=== PATIENT | female | born 1945 | race American Indian/Alaskan Native ===

== ENCOUNTER 2017-03-15 15:44 | Inpatient (IN) | payer MEDICARE ==
[2017-03-15 15:44] VITALS: BMI 36.6
[2017-03-15] MEDS ORDERED: Sodium Chloride 0.9% 500 ML IV ONE (16:07)
[2017-03-15] MEDS ORDERED: Sodium Chloride 0.9% 1,000 ML ONE (16:20)
[2017-03-15 16:29] LABS: BASO % 0.4 % (0.0-2.0); EOS % 0.2 % (0.0-4.0); HEMATOCRIT 43.7 % (34.0-47.0); LYMPH # 2.2 K/uL (1.0-4.3); LYMPH % 19.5 % (20.0-40.0); MEAN CELL VOLUME 89.2 fL (81.0-99.0); MEAN CORPUSCULAR HEMOGLOBIN 29.5 pg (27.0-31.0); MEAN CORPUSCULAR HGB CONC 33.1 g/dL (33.0-37.0); MONO # 0.6 K/uL (0.0-0.8); MONO % 5.4 % (0.0-10.0); NRBC % 0.1 % (0.0-2.0); RED CELL DISTRIBUTION WIDTH 14.1 % (11.5-14.5); WHITE BLOOD COUNT 11.5 K/uL (4.8-10.8)
[2017-03-15 16:37] LABS: CHLORIDE 100 mmol/L (98-107); POTASSIUM 3.7 mmol/L (3.6-5.2); SODIUM 137 mmol/L (132-148)
[2017-03-15 16:39] LABS: ALB/GLOB RATIO 1.5 (1.0-2.1); AST/SGOT 19 U/L (14-36); BILIRUBIN,TOTAL 0.5 mg/dL (0.2-1.3); CARBON DIOXIDE 25 mmol/L (22-30); GFR AFRICAN-AMERICAN 49; TOTAL PROTEIN 8.1 g/dL (6.3-8.3)
[2017-03-15 16:40] LABS: ALKALINE PHOSPHATASE 87 U/L (38-126); ALT/SGPT 32 U/L (9-52); BLOOD UREA NITROGEN 22 mg/dL (7-17); CALCIUM 9.8 mg/dl (8.6-10.4); GLUCOSE,RANDOM 114 mg/dL (65-105); INR 0.9
--- NOTE | 2017-03-15 16:44 | RAD ---
PROCEDURE: CHEST RADIOGRAPH, 1 VIEW HISTORY: abd pain COMPARISON: None available. FINDINGS: LUNGS: There is silhouetting of the left hemidiaphragm. There is increased retrocardiac opacity. This may reflect consolidation or left pleural effusion. There is no consolidation appreciated elsewhere. There is no evidence of right pleural effusion. There is no pneumothorax. PLEURA: As above CARDIOVASCULAR: Normal. OSSEOUS STRUCTURES: No significant abnormalities. VISUALIZED UPPER ABDOMEN: Normal. OTHER FINDINGS: None. IMPRESSION: Retrocardiac opacity and silhouetting of left hemidiaphragm. Possible left lower lobe infiltrate versus left pleural effusion.
[2017-03-15 16:50] LABS: VENOUS BLOOD GAS BASE EXCESS 2.8 mmol/L (0.0-2.0); VENOUS BLOOD GAS PCO2 35 mmHg (40-60); VENOUS BLOOD PH 7.48 (7.32-7.43)
--- NOTE | 2017-03-15 17:14 | C.PDOC ---
History Of Present Illness 71 year old patient, with a past medical history of Arthritis (HANDS; RIGHT ARM) , Colonic Polyps, Diverticulitis, HTN, and Pancreatitis, presents to the emergency department complaining of periumbilical pain and vomiting since this morning. Patient notes 3 episodes of vomiting. Patient denies fever, diarrhea, or shortness of breath. Time Seen by Provider: 03/15/17 16:04 Chief Complaint (Nursing): Abdominal Pain History Per: Patient History/Exam Limitations: no limitations Onset/Duration Of Symptoms: Hrs (this morning) Current Symptoms Are (Timing): Still Present Context: Other Severity: Mild Pain Scale Rating Of: 3 Location Of Pain/Discomfort: Periumbilical Radiation Of Pain To:: None Quality Of Discomfort: "Pain" Associated Symptoms: Vomiting Exacerbating Factors: None Alleviating Factors: None Last Bowel Movement: Today Recent travel outside of the [place]: No Past Medical History Reviewed: Historical Data, Nursing Documentation, Vital Signs Vital Signs: Last Vital Signs Temp 98.7 F 03/15/17 20:56 Pulse 88 03/15/17 20:56 Resp 20 03/15/17 20:56 BP 149/78 03/15/17 20:56 Pulse Ox 95 03/15/17 20:56 - Medical History PMH: Arthritis (HANDS; RIGHT ARM), Colonic Polyps, Diverticulitis, HTN, Pancreatitis Surgical History: Endoscopy - [facility] Procedures COLONOSCOPY (01/19/14) Family History: States: Unknown Family Hx - Social History Hx Alcohol Use: No Hx Substance Use: No - Immunization History Hx Tetanus Toxoid Vaccination: No Hx Influenza Vaccination: No Hx Pneumococcal Vaccination: Yes Review Of Systems Except As Marked, All Systems Reviewed And Found Negative. Constitutional: Negative for: Fever Respiratory: Negative for: Shortness of Breath Gastrointestinal: Positive for: Vomiting, Abdominal Pain (periumbilical). Negative for: Diarrhea Physical Exam - Physical Exam Appears: Non-toxic, No Acute Distress Skin: Warm, Dry Head: Atraumatic, Normacephalic Oral Mucosa: Moist Neck: Normal ROM, Supple Chest: Symmetrical Cardiovascular: Rhythm Regular Respiratory: Normal Breath Sounds, No Rales, No Rhonchi, No Wheezing Gastrointestinal/Abdominal: Soft, Tenderness (periumbilical), No Guarding, No Rebound, Other ((+)obese (-)McBurney's sign (-)Bryant's sign) Back: Normal Inspection, No CVA Tenderness Extremity: Normal ROM Neurological/Psych: Oriented x3 Gait: Steady ED Course And Treatment - Laboratory Results Result Diagrams: 03/15/17 16:21 03/15/17 16:21 Lab Interpretation: Abnormal (mild leukocytosis) ECG: Interpreted By Me, Viewed By Me ECG Rhythm: Sinus Rhythm, L BBB ECG Interpretation: Normal Interpretation Of ECG: No prior EKG to compare Rate From EC (bpm) O2 Sat by Pulse Oximetry: 98 (room air) Pulse Ox Interpretation: Normal - Radiology CXR: Interpreted by Me CXR Interpretation: Yes: No Acute Disease Progress Note: Plan: Abdomen/Pelvis CT, VBG, Labs, Chest x-ray, Pepcid, Zofran, IV fluids, Toradol. pt vomited in ED 2-3 times, Surgical Donald d/w Pt- declined NGT for now Reevaluation Time: 20:26 Reassessment Condition: Improved - Physician Consult Information Outcome Of Conversation: 1830: d/w Dr. Garay- PMD- ok to admit. 1700: d/w Dr. Tay- Surgical Consult- NGT PRN Medical Decision Making Medical Decision Making: SBO, h/o same. ? internal hernia vs adhesions. Pt and Surgery defer NGT for now. Disposition Doctor Will See Patient In The: Hospital Counseled Patient/Family Regarding: Studies Performed, Diagnosis - Disposition Disposition: HOSPITALIZED Disposition Time: 20:28 Condition: GOOD - Clinical Impression Clinical Impression: Small bowel obstruction - Scribe Statement The provider has reviewed the documentation as recorded by the Zach Paula Provider Attestation: All medical record entries made by the Zach were at my direction and personally dictated by me. I have reviewed the chart and agree that the record accurately reflects my personal performance of the history, physical exam, medical decision making, and the department course for this patient. I have also personally directed, reviewed, and agree with the discharge instructions and disposition.
[2017-03-15] MEDS ORDERED: Iodixanol 320 MG/ML 100 ML BOTTLE IV ONE (17:19)
--- NOTE | 2017-03-15 18:52 | CT ---
PROCEDURE: CT Abdomen and Pelvis with contrast HISTORY: epigastric, h/o diverticulosis COMPARISON: None available. TECHNIQUE: Contrast dose: 100 cc Visipaque 320 Radiation dose: Total exam DLP = 1126.34 mGy-cm. This CT exam was performed using one or more of the following dose reduction techniques: Automated exposure control, adjustment of the mA and/or kV according to patient size, and/or use of iterative reconstruction technique. FINDINGS: LOWER THORAX: Bibasilar atelectasis. No visible pleural effusion or pneumothorax. Partially imaged cardiomegaly. Moderate hiatal hernia. LIVER: Too small to characterize 7 mm left hepatic lobe hypodensity; statistically likely cyst or hemangioma. GALLBLADDER AND BILE DUCTS: Unremarkable. PANCREAS: Unremarkable. SPLEEN: 6 mm probable splenule. Otherwise unremarkable. ADRENALS: Unremarkable. KIDNEYS AND URETERS: Atrophic right kidney. 18 mm left low-density renal lesion compatible with a cyst measuring approximately 14 HU. No hydronephrosis. No obstructing renal calculi. VASCULATURE: No aortic aneurysm. BOWEL: Stomach is nondistended. Lack of oral contrast limits evaluation for bowel pathology. Fluid filled and dilated loops of small bowel involving portions of the jejunum and proximal ileum. Diverticulosis without CT evidence of acute diverticulitis. APPENDIX: The appendix appears within normal limits of caliber. No secondary signs of acute appendicitis. PERITONEUM: All pelvic free fluid. No definite free air. LYMPH NODES: No bulky adenopathy identified. BLADDER: Unremarkable. REPRODUCTIVE: Unremarkable. BONES: Degenerative changes. OTHER FINDINGS: None. IMPRESSION: Fluid filled and dilated loops of small bowel involving portions of the jejunum and proximal ileum. Appearance worrisome for closed loop obstruction or internal hernia until proven otherwise. Additional findings as above. Findings discussed with Dr. Woodson on 03/15/17 at 6:49 p.m..
[2017-03-15 18:56] LABS: RBC URINE 4 /hpf (0-3); URINE BACTERIA RARE (<OCC); URINE BILIRUBIN NEGATIVE (NEGATIVE); URINE BLOOD NEGATIVE (NEGATIVE); URINE GLUCOSE (UA) NORMAL (Normal); URINE KETONE NEGATIVE (NEGATIVE); URINE LEUKOCYTE ESTERASE NEG Leu/uL (Negative); URINE PROTEIN 2+ mg/dL (NEGATIVE); URINE UROBILINOGEN NORMAL mg/dL (0.2-1.0); WBC URINE 4 /hpf (0-5)
[2017-03-15 18:58] LABS: URINE COLOR YELLOW (YELLOW)
--- NOTE | 2017-03-15 20:17 | CP.PCM.CON ---
History of Present Illness - History of Present Illness History of Present Illness: GENERAL SURGERY CONSULT NOTE FOR DR. AREVALO 71yo F with PMHx of HTN, CKD, CHF, SBO and multiple abdominal surgeries who presents to the ED with abdominal pain and vomiting. The pain began earlier today around noon and was 10/10. Her pain is located in the epigastric/ periumbilical area. She vomited about 3-4 times, non bloody. She had a small BM earlier today. She last passed flatus yesterday. She denies SOB or CP. Of note, she was treated for SBO a few months ago at [facility] conservatively. Currently, patient states that her pain is completely gone and she has no symptoms. PMHx: CHF, CKD, HTN, DM (controlled without medication), arthritis, colonic polyps, takotsubo syndrome, SBO Surgeries: hysterectomy, D&C, 2 ectopic pregnancies Allergies: Vasotec, HCTZ (pancreatitis) Social history: denies tobacco, etoh, illicit drug use Review of Systems - Review of Systems All systems: reviewed and no additional remarkable complaints except (as per HPI ) Past Patient History - Past Medical History & Family History Past Medical History?: Yes - Past Social History Smoking Status: Never Smoked - CARDIAC Hx Hypertension: Yes - PULMONARY Hx Respiratory Disorders: No - NEUROLOGICAL Hx Neurological Disorder: No - HEENT Hx HEENT Problems: No - RENAL Hx Chronic Kidney Disease: No - ENDOCRINE/METABOLIC Hx Endocrine Disorders: No Other/Comment: Borderline diabetes - HEMATOLOGICAL/ONCOLOGICAL Hx Blood Disorders: No - INTEGUMENTARY Hx Dermatological Problems: No - MUSCULOSKELETAL/RHEUMATOLOGICAL Hx Arthritis: Yes (HANDS; RIGHT ARM) - GASTROINTESTINAL Hx Diverticulitis: Yes Hx Pancreatitis: Yes - GENITOURINARY/GYNECOLOGICAL Hx Genitourinary Disorders: No - PSYCHIATRIC Hx Substance Use: No - SURGICAL HISTORY Hx Surgeries: Yes Hx Hysterectomy: Yes (GARRETT) - ANESTHESIA Hx Anesthesia: Yes Hx Anesthesia Reactions: No Hx Malignant Hyperthermia: No Meds Allergies/Adverse Reactions: Allergies Allergy/AdvReac Type Severity Reaction Status Date / Time enalaprilat [From Vasotec] Allergy RASH Verified 03/15/17 15:55 hydrochlorothiazide Allergy RASH Verified 03/15/17 15:55 Physical Exam - Constitutional Appears: Well, Non-toxic, No Acute Distress - Head Exam Head Exam: ATRAUMATIC, NORMAL INSPECTION - Eye Exam Eye Exam: EOMI, Normal appearance - Respiratory Exam Respiratory Exam: NORMAL BREATHING PATTERN. absent: Respiratory Distress - Cardiovascular Exam Cardiovascular Exam: +S1, +S2 - GI/Abdominal Exam GI & Abdominal Exam: Soft. absent: Distended, Firm, Guarding, Rebound, Rigid, Tenderness (non tender on deep palpation) Additional comments: Lower midline scar, well healed - Extremities Exam Additional comments: +1 pitting edema bilateral LE - Neurological Exam Neurological exam: Alert, CN II-XII Intact, Oriented x3 - Psychiatric Exam Psychiatric exam: Normal Affect, Normal Mood - Skin Skin Exam: Dry, Normal Color, Warm Results - Vital Signs Recent Vital Signs: Last Vital Signs Temp 99.2 F 03/15/17 18:06 Pulse 83 03/15/17 18:06 Resp 20 03/15/17 18:06 BP 132/84 03/15/17 18:06 Pulse Ox 98 03/15/17 19:03 - Labs Result Diagrams: 03/15/17 16:21 03/15/17 16:21 Assessment & Plan - Assessment and Plan (Free Text) Assessment: 71yo F with PMHx of HTN, CKD, CHF, SBO and multiple abdominal surgeries who presented with abdominal pain and vomiting and was found to have SBO - Afebrile, VSS - VBG Lactate WNL - CT: fluid filled bowel loops and dilated lops of small bowel involving portions of jejunum and proximal ileum; hiatal hernia, diverticulosis - NPO, bowel rest - IV Fluids - NG tube if vomits again or if pain returns - Morphine and Zofran PRN - Encourage ambulation - Discussed plan with Dr. Maggi Spear PGY-2
[2017-03-15] MEDS ORDERED: Sodium Chloride 0.9% 1,000 ML IV SCH (20:30)
[2017-03-15] MEDS ORDERED: HYDROmorphone 1 mg/ml ISec IVP PRN (21:24)
--- NOTE | 2017-03-15 21:37 | CP.PCM.HP ---
History of Present Illness - History of Present Illness History of Present Illness: 71 year old with HTN, DM, on diet. hx of dilated cardiomyopathy, non ischemic EF 30% did not want ICD on medical treatment, + prior abd surgery, with abd pain , CT with possible SBO, gentle hydration with chronic CHF Present on Admission - Present on Admission Any Indicators Present on Admission: No Review of Systems - Review of Systems Systems not reviewed;Unavailable: Unstable Vital Signs - Constitutional Constitutional: Anorexia, Weakness - EENT Eyes: absent: Discharge Ears: absent: Ear Discharge, Dizziness Nose/Mouth/Throat: absent: Epistaxis - Cardiovascular Cardiovascular: absent: Acrocyanosis, Chest Pain, Diaphoresis, Leg Edema, Syncope - Respiratory Respiratory: absent: Cough, Dyspnea, Hemoptysis - Gastrointestinal Gastrointestinal: Abdominal Pain, Constipation, Nausea. absent: Hematochezia Past Patient History - Past Medical History & Family History Past Medical History?: Yes - Past Social History Smoking Status: Never Smoked - CARDIAC Hx Congestive Heart Failure: Yes Hx Hypertension: Yes - PULMONARY Hx Respiratory Disorders: No - NEUROLOGICAL Hx Neurological Disorder: No - HEENT Hx HEENT Problems: No - RENAL Hx Chronic Kidney Disease: No - ENDOCRINE/METABOLIC Hx Endocrine Disorders: No Other/Comment: Borderline diabetes - HEMATOLOGICAL/ONCOLOGICAL Hx Blood Disorders: No - INTEGUMENTARY Hx Dermatological Problems: No - MUSCULOSKELETAL/RHEUMATOLOGICAL Hx Arthritis: Yes (HANDS; RIGHT ARM) - GASTROINTESTINAL Hx Diverticulitis: Yes Hx Pancreatitis: Yes - GENITOURINARY/GYNECOLOGICAL Hx Genitourinary Disorders: No - PSYCHIATRIC Hx Substance Use: No - SURGICAL HISTORY Hx Surgeries: Yes Hx Hysterectomy: Yes (GARRETT) - ANESTHESIA Hx Anesthesia: Yes Hx Anesthesia Reactions: No Hx Malignant Hyperthermia: No Meds Allergies/Adverse Reactions: Allergies Allergy/AdvReac Type Severity Reaction Status Date / Time enalaprilat [From Vasotec] Allergy RASH Verified 03/15/17 15:55 hydrochlorothiazide Allergy RASH Verified 03/15/17 15:55 Physical Exam - Constitutional Appears: Non-toxic - Head Exam Head Exam: ATRAUMATIC - Eye Exam Eye Exam: EOMI - ENT Exam ENT Exam: Mucous Membranes Moist - Neck Exam Neck exam: Negative for: Lymphadenopathy, Thyromegaly - Respiratory Exam Respiratory Exam: Clear to Auscultation Bilateral. absent: Rales - Cardiovascular Exam Cardiovascular Exam: REGULAR RHYTHM, Systolic Murmur - GI/Abdominal Exam GI & Abdominal Exam: Normal Bowel Sounds. absent: Organomegaly - Rectal Exam Rectal Exam: Deferred - Extremities Exam Extremities exam: Positive for: normal capillary refill. Negative for: calf tenderness - Neurological Exam Neurological exam: Alert, Oriented x3 - Psychiatric Exam Psychiatric exam: Normal Mood - Skin Skin Exam: Dry Results - Vital Signs Recent Vital Signs: Last Vital Signs Temp 98.7 F 03/15/17 20:56 Pulse 88 03/15/17 20:56 Resp 20 03/15/17 20:56 BP 149/78 03/15/17 20:56 Pulse Ox 98 03/15/17 21:01 - Labs Result Diagrams: 03/17/17 07:00 03/17/17 07:00 Assessment & Plan (1) Small bowel obstruction Status: Acute Comment: observe with surgery (2) CHF (congestive heart failure), NYHA class II Status: Chronic Comment: chronic LV systolic, observe fluid (3) Diabetes 1.5, managed as type 2 Status: Chronic (4) Hypertension Status: Chronic Decision To Admit - Pt Status Changed To: Hospital Disposition Of: Inpatient - Admit Certification Admit to Inpatient:: After my assessment, the patient will require hospitalization for at least two midnights. This is because of the severity of symptoms shown, intensity of services needed, and/or the medical risk in this patient being treated as an outpatient. - InPatient: Physician Admission Certification:: yes - . Bed Request Type: Regular
[2017-03-15] MEDS: Dextrose 5%/0.45% NS 1,000 ML IV SCH (22:03)
[2017-03-15] MEDS: (Novolin R) Insulin Human Regular 100 units/ml vial SC SCH (22:05)
[2017-03-16 07:31] LABS: BASO % 0.3 % (0.0-2.0); EOS % 0.5 % (0.0-4.0); HEMATOCRIT 38.5 % (34.0-47.0); LYMPH # 2.3 K/uL (1.0-4.3); LYMPH % 31.8 % (20.0-40.0); MEAN CELL VOLUME 88.7 fL (81.0-99.0); MEAN CORPUSCULAR HEMOGLOBIN 29.5 pg (27.0-31.0); MEAN CORPUSCULAR HGB CONC 33.2 g/dL (33.0-37.0); MEAN PLATELET VOLUME 8.4 fL (7.2-11.7); MONO # 0.6 K/uL (0.0-0.8); MONO % 7.9 % (0.0-10.0); NRBC % 0.1 % (0.0-2.0); RED CELL DISTRIBUTION WIDTH 14.2 % (11.5-14.5); WHITE BLOOD COUNT 7.4 K/uL (4.8-10.8)
[2017-03-16 07:52] LABS: POTASSIUM 3.5 mmol/L (3.6-5.2)
[2017-03-16 07:54] LABS: ALB/GLOB RATIO 1.3 (1.0-2.1); BILIRUBIN,TOTAL 0.6 mg/dL (0.2-1.3); TOTAL PROTEIN 6.4 g/dL (6.3-8.3)
[2017-03-16 07:55] LABS: CALCIUM 8.5 mg/dl (8.6-10.4)
[2017-03-16] MEDS: (Novolin R) Insulin Human Regular 100 units/ml vial SC SCH ×4 (07:56→21:48)
--- NOTE | 2017-03-16 08:09 | CP.PCM.PN ---
Subjective - Date & Time of Evaluation Date of Evaluation: 03/16/17 Time of Evaluation: 07:00 - Subjective Subjective: SURGERY PROGRESS NOTE FOR DR. AREVALO 71F seen and examine at bedside. Patient states the pain is much improved. She admits nausea, denies vomiting, denies flatus and bowel movement. Objective - Vital Signs/Intake and Output Vital Signs (last 24 hours): Temp Pulse Resp BP Pulse Ox 97.7 F 72 20 134/73 97 03/16/17 07:41 03/16/17 07:41 03/16/17 07:41 03/16/17 07:41 03/16/17 07:41 - Medications Medications: Current Medications Furosemide (Lasix) 40 mg PO DAILY [facility] Dextrose/Sodium Chloride (Dextrose 5%/0.45% Ns 1000 Ml) 1,000 mls @ 60 mls/hr IV .[id number] [facility] Last Admin: 03/15/17 22:03 Dose: 60 mls/hr Insulin Human Regular (Novolin R) 0 unit SC ACHS [facility] PRN Reason: Protocol Last Admin: 03/16/17 07:56 Dose: Not Given Losartan Potassium (Cozaar) 100 mg PO DAILY [facility] Metoprolol Succinate (Toprol Xl) 100 mg PO DAILY [facility] Morphine Sulfate (Morphine) 2 mg IVP Q4 PRN PRN Reason: Pain, moderate (4-7) Last Admin: 03/16/17 00:55 Dose: 2 mg Ondansetron HCl (Zofran Inj) 4 mg IVP Q4 PRN PRN Reason: Nausea/Vomiting - Labs Labs: 03/16/17 07:23 PT 10.6 SECONDS (9.7-12.2) 03/15/17 16:21 INR 0.9 03/15/17 16:21 APTT 39 SECONDS (21-34) H 03/15/17 16:21 - Constitutional Appears: Non-toxic, No Acute Distress - ENT Exam ENT Exam: Mucous Membranes Moist - Respiratory Exam Respiratory Exam: Clear to Ausculation Bilateral, NORMAL BREATHING PATTERN - Cardiovascular Exam Cardiovascular Exam: REGULAR RHYTHM, +S1, +S2 - GI/Abdominal Exam GI & Abdominal Exam: Soft, Tenderness (mildly tender). absent: Distended, Firm , Guarding, Rigid, Rebound - Neurological Exam Neurological Exam: Alert, Awake - Skin Skin Exam: Dry, Intact, Normal Color, Warm Assessment and Plan - Assessment and Plan (Free Text) Assessment: 71F presents with SBO Plan: - NPO, bowel rest - IV Fluids - Pain control/anti-emetic - NG tube if vomits again or if pain returns - Encourage ambulation Discussed with Dr. Maggi Perez, PGY1
[2017-03-16 08:11] LABS: THYROID STIMULATING HORMONE 2.54 mIU/L (0.46-4.68)
[2017-03-16] MEDS: Metoprolol Succinate 100 mg XL Tab PO SCH (09:27)
--- NOTE | 2017-03-16 11:30 | CP.PCM.PN ---
Subjective - Date & Time of Evaluation Date of Evaluation: 03/16/17 Time of Evaluation: 12:00 - Subjective Subjective: Less pain, no vomiting, on observation and IV fluid, seen by surgery observe Objective - Vital Signs/Intake and Output Vital Signs (last 24 hours): Temp Pulse Resp BP Pulse Ox 97.7 F 72 20 134/72 97 03/16/17 07:41 03/16/17 07:41 03/16/17 07:41 03/16/17 09:26 03/16/17 07:41 - Medications Medications: Current Medications Furosemide (Lasix) 40 mg PO DAILY [facility] Last Admin: 03/16/17 09:26 Dose: 40 mg Dextrose/Sodium Chloride (Dextrose 5%/0.45% Ns 1000 Ml) 1,000 mls @ 60 mls/hr IV .[id number] [facility] Last Admin: 03/15/17 22:03 Dose: 60 mls/hr Insulin Human Regular (Novolin R) 0 unit SC ACHS [facility] PRN Reason: Protocol Last Admin: 03/16/17 07:56 Dose: Not Given Losartan Potassium (Cozaar) 100 mg PO DAILY [facility] Last Admin: 03/16/17 09:27 Dose: 100 mg Metoprolol Succinate (Toprol Xl) 100 mg PO DAILY [facility] Last Admin: 03/16/17 09:27 Dose: 100 mg Morphine Sulfate (Morphine) 2 mg IVP Q4 PRN PRN Reason: Pain, moderate (4-7) Last Admin: 03/16/17 09:23 Dose: 2 mg Ondansetron HCl (Zofran Inj) 4 mg IVP Q4 PRN PRN Reason: Nausea/Vomiting - Labs Labs: 03/16/17 07:23 03/16/17 07:23 PT 10.6 SECONDS (9.7-12.2) 03/15/17 16:21 INR 0.9 03/15/17 16:21 APTT 39 SECONDS (21-34) H 03/15/17 16:21 - Constitutional Appears: Non-toxic - Head Exam Head Exam: ATRAUMATIC - Eye Exam Eye Exam: EOMI - ENT Exam ENT Exam: Mucous Membranes Moist - Neck Exam Neck Exam: absent: Lymphadenopathy, Thyromegaly - Respiratory Exam Respiratory Exam: Clear to Ausculation Bilateral. absent: Rales - Cardiovascular Exam Cardiovascular Exam: REGULAR RHYTHM, Murmur - GI/Abdominal Exam GI & Abdominal Exam: Normal Bowel Sounds. absent: Tenderness, Organomegaly, Rebound - Rectal Exam Rectal Exam: Deferred - Extremities Exam Extremities Exam: Normal Capillary Refill. absent: Calf Tenderness - Neurological Exam Neurological Exam: Alert, Oriented x3 - Psychiatric Exam Psychiatric exam: Anxious - Skin Skin Exam: Dry Assessment and Plan (1) Small bowel obstruction Status: Acute (2) CHF (congestive heart failure), NYHA class II Status: Chronic (3) Diabetes 1.5, managed as type 2 Status: Chronic (4) Hypertension Status: Chronic
[2017-03-16] MEDS: Dextrose 5%/0.45% NS 1,000 ML IV SCH (14:22)
--- NOTE | 2017-03-16 19:48 | CARD ---
APPROVED REPORT EKG Measurement Heart [id number] [id number] <Conclusion> Normal sinus rhythm Left bundle branch block Abnormal ECG
[2017-03-17 00:32] VITALS: RESP 20
[2017-03-17] MEDS: Dextrose 5%/0.45% NS 1,000 ML IV SCH (06:46)
[2017-03-17 07:13] LABS: BASO # 0.1 K/uL (0.0-0.2); EOS # 0.1 K/uL (0.0-0.7); EOS % 1.2 % (0.0-4.0); HEMATOCRIT 35.5 % (34.0-47.0); LYMPH # 2.2 K/uL (1.0-4.3); LYMPH % 33.7 % (20.0-40.0); MEAN CELL VOLUME 89.2 fL (81.0-99.0); MEAN CORPUSCULAR HEMOGLOBIN 29.2 pg (27.0-31.0); MEAN CORPUSCULAR HGB CONC 32.7 g/dL (33.0-37.0); MEAN PLATELET VOLUME 8.8 fL (7.2-11.7); MONO # 0.4 K/uL (0.0-0.8); MONO % 6.7 % (0.0-10.0); RED CELL DISTRIBUTION WIDTH 14.1 % (11.5-14.5); WHITE BLOOD COUNT 6.4 K/uL (4.8-10.8)
[2017-03-17 07:36] LABS: POTASSIUM 3.4 mmol/L (3.6-5.2)
[2017-03-17 07:40] LABS: CALCIUM 8.1 mg/dl (8.6-10.4)
[2017-03-17] MEDS: (Novolin R) Insulin Human Regular 100 units/ml vial SC SCH ×3 (08:03→16:52)
[2017-03-17] MEDS: Metoprolol Succinate 100 mg XL Tab PO SCH (09:09)
--- NOTE | 2017-03-17 11:22 | CP.PCM.PN ---
Subjective - Date & Time of Evaluation Date of Evaluation: 03/17/17 Time of Evaluation: 11:20 - Subjective Subjective: Surgery: Dr. Dumas Pt seen and examined. Pain improved. No N/V. BM x 3 last night. Pt would like to eat Objective - Vital Signs/Intake and Output Vital Signs (last 24 hours): Temp Pulse Resp BP Pulse Ox 97.2 F L 73 20 119/72 95 03/17/17 00:00 03/17/17 00:00 03/17/17 00:00 03/17/17 09:09 03/17/17 00:00 Intake and Output: 03/17/17 03/17/17 06:59 18:59 Intake Total 1200 Balance 1200 - Medications Medications: Current Medications Furosemide (Lasix) 40 mg PO DAILY [facility] Last Admin: 03/17/17 09:09 Dose: 40 mg Dextrose/Sodium Chloride (Dextrose 5%/0.45% Ns 1000 Ml) 1,000 mls @ 60 mls/hr IV .[id number] [facility] Last Admin: 03/17/17 06:46 Dose: Not Given Insulin Human Regular (Novolin R) 0 unit SC ACHS [facility] PRN Reason: Protocol Last Admin: 03/17/17 08:03 Dose: Not Given Losartan Potassium (Cozaar) 100 mg PO DAILY [facility] Last Admin: 03/17/17 09:09 Dose: 100 mg Metoprolol Succinate (Toprol Xl) 100 mg PO DAILY [facility] Last Admin: 03/17/17 09:09 Dose: 100 mg Morphine Sulfate (Morphine) 2 mg IVP Q4 PRN PRN Reason: Pain, moderate (4-7) Last Admin: 03/16/17 14:24 Dose: 2 mg Ondansetron HCl (Zofran Inj) 4 mg IVP Q4 PRN PRN Reason: Nausea/Vomiting - Labs Labs: 03/17/17 07:00 03/17/17 07:00 PT 10.6 SECONDS (9.7-12.2) 03/15/17 16:21 INR 0.9 03/15/17 16:21 APTT 39 SECONDS (21-34) H 03/15/17 16:21 - Constitutional Appears: Non-toxic, No Acute Distress - Head Exam Head Exam: ATRAUMATIC, NORMOCEPHALIC - Eye Exam Eye Exam: EOMI. absent: Scleral icterus - ENT Exam ENT Exam: Mucous Membranes Moist - Neck Exam Neck Exam: Full ROM - Respiratory Exam Respiratory Exam: NORMAL BREATHING PATTERN. absent: Accessory Muscle Use, Respiratory Distress - GI/Abdominal Exam GI & Abdominal Exam: Soft. absent: Distended, Firm, Guarding, Rigid, Tenderness , Rebound - Extremities Exam Extremities Exam: absent: Calf Tenderness, Pedal Edema - Neurological Exam Neurological Exam: Alert, Awake, Oriented x3 Assessment and Plan - Assessment and Plan (Free Text) Assessment: 71F w. SBO -will start CLD and ADAT -encourage ambulation -d/w attending Zemaitis PGY2
[2017-03-17 16:50] VITALS: BP 110/65; PULSE 60; TEMP 97.9; O2SAT 96
[2017-03-17] MEDS ORDERED: Potassium Chloride 20 mEq ER Tab PO ONE (17:30)
--- NOTE | 2017-03-17 17:44 | CP.PCM.PN ---
Subjective - Date & Time of Evaluation Date of Evaluation: 03/17/17 Time of Evaluation: 17:43 - Subjective Subjective: Alert and oriented x3, denies abdomilal pain or distress. Objective - Vital Signs/Intake and Output Vital Signs (last 24 hours): Temp Pulse Resp BP Pulse Ox 97.9 F 60 20 110/65 96 03/17/17 15:00 03/17/17 15:00 03/17/17 15:00 03/17/17 15:00 03/17/17 15:00 Intake and Output: 03/17/17 03/17/17 06:59 18:59 Intake Total 1200 900 Balance 1200 900 - Medications Medications: Current Medications Furosemide (Lasix) 40 mg PO DAILY [facility] Last Admin: 03/17/17 09:09 Dose: 40 mg Insulin Human Regular (Novolin R) 0 unit SC ACHS [facility] PRN Reason: Protocol Last Admin: 03/17/17 16:52 Dose: Not Given Losartan Potassium (Cozaar) 100 mg PO DAILY [facility] Last Admin: 03/17/17 09:09 Dose: 100 mg Metoprolol Succinate (Toprol Xl) 100 mg PO DAILY [facility] Last Admin: 03/17/17 09:09 Dose: 100 mg Morphine Sulfate (Morphine) 2 mg IVP Q4 PRN PRN Reason: Pain, moderate (4-7) Last Admin: 03/16/17 14:24 Dose: 2 mg Ondansetron HCl (Zofran Inj) 4 mg IVP Q4 PRN PRN Reason: Nausea/Vomiting Last Admin: 03/17/17 16:44 Dose: 4 mg - Labs Labs: 03/17/17 07:00 03/17/17 07:00 PT 10.6 SECONDS (9.7-12.2) 03/15/17 16:21 INR 0.9 03/15/17 16:21 APTT 39 SECONDS (21-34) H 03/15/17 16:21 Assessment and Plan - Assessment and Plan (Free Text) Assessment: Patient is seen and examined. Tolerating regular diet, had bowel movement. D/W DR Garay, plan to discharge home today, advised to follow up in 1 week with PMD.
--- NOTE | 2017-03-17 18:54 | CP.PCM.DIS ---
Provider - Provider Date of Admission: 03/15/17 19:25 Attending physician: Atif Garay MD Time Spent in preparation of Discharge (in minutes): 20 Diagnosis - Discharge Diagnosis (1) Small bowel obstruction Status: Acute (2) CHF (congestive heart failure), NYHA class II Status: Chronic (3) Diabetes 1.5, managed as type 2 Status: Chronic (4) Hypertension Status: Chronic Hospital Course - Lab Results Lab Results: Most Recent Lab Values WBC 6.4 K/uL (4.8-10.8) 03/17/17 07:00 RBC 3.98 Mil/uL (3.80-5.20) 03/17/17 07:00 Hgb 11.6 g/dL (11.0-16.0) 03/17/17 07:00 Hct 35.5 % (34.0-47.0) 03/17/17 07:00 MCV 89.2 fL (81.0-99.0) 03/17/17 07:00 MCH 29.2 pg (27.0-31.0) 03/17/17 07:00 MCHC 32.7 g/dL (33.0-37.0) L 03/17/17 07:00 RDW 14.1 % (11.5-14.5) 03/17/17 07:00 Plt Count 198 K/uL (130-400) 03/17/17 07:00 MPV 8.8 fL (7.2-11.7) 03/17/17 07:00 Neut % (Auto) 57.4 % (50.0-75.0) 03/17/17 07:00 Lymph % (Auto) 33.7 % (20.0-40.0) 03/17/17 07:00 Teller % (Auto) 6.7 % (0.0-10.0) 03/17/17 07:00 Eos % (Auto) 1.2 % (0.0-4.0) 03/17/17 07:00 Baso % (Auto) 1.0 % (0.0-2.0) 03/17/17 07:00 Neut # 3.7 K/uL (1.8-7.0) 03/17/17 07:00 Lymph # 2.2 K/uL (1.0-4.3) 03/17/17 07:00 Teller # 0.4 K/uL (0.0-0.8) 03/17/17 07:00 Eos # 0.1 K/uL (0.0-0.7) 03/17/17 07:00 Baso # 0.1 K/uL (0.0-0.2) 03/17/17 07:00 PT 10.6 SECONDS (9.7-12.2) 03/15/17 16:21 INR 0.9 03/15/17 16:21 APTT 39 SECONDS (21-34) H 03/15/17 16:21 pO2 51 mm/Hg (30-55) 03/15/17 16:45 VBG pH 7.48 (7.32-7.43) H 03/15/17 16:45 VBG pCO2 35 mmHg (40-60) L 03/15/17 16:45 VBG HCO3 26.9 mmol/L 03/15/17 16:45 VBG Total CO2 27.2 mmol/L (22-28) 03/15/17 16:45 VBG O2 Sat (Calc) 91.6 % (40-65) H 03/15/17 16:45 VBG Base Excess 2.8 mmol/L (0.0-2.0) H 03/15/17 16:45 VBG Potassium 3.6 mmol/L (3.6-5.2) 03/15/17 16:45 Sodium 139.0 mmol/l (132-148) 03/15/17 16:45 Chloride 109.0 mmol/L (98-107) H 03/15/17 16:45 Glucose 115 mg/dl (65-105) H 03/15/17 16:45 Lactate 1.3 mmol/L (0.7-2.1) 03/15/17 16:45 Sodium 141 mmol/L (132-148) 03/17/17 07:00 Potassium 3.4 mmol/L (3.6-5.2) L 03/17/17 07:00 Chloride 106 mmol/L (98-107) 03/17/17 07:00 Carbon Dioxide 26 mmol/L (22-30) 03/17/17 07:00 Anion Gap 12 (10-20) 03/17/17 07:00 BUN 14 mg/dL (7-17) 03/17/17 07:00 Creatinine 1.1 MG/DL (0.7-1.2) 03/17/17 07:00 Est GFR ( Amer) 59 03/17/17 07:00 Est GFR (Non-Af Amer) 49 03/17/17 07:00 POC Glucose (mg/dL) 106 mg/dL (65-110) 03/17/17 16:29 Random Glucose 90 mg/dL (65-105) 03/17/17 07:00 Hemoglobin A1c 6.0 % (4.2-6.5) 03/16/17 07:23 Calcium 8.1 mg/dl (8.6-10.4) L 03/17/17 07:00 Total Bilirubin 0.6 mg/dL (0.2-1.3) 03/16/17 07:23 AST 17 U/L (14-36) 03/16/17 07:23 ALT 21 U/L (9-52) 03/16/17 07:23 Alkaline Phosphatase 67 U/L (38-126) 03/16/17 07:23 Troponin I < 0.0120 ng/mL (0.00-0.120) 03/15/17 16:21 NT-Pro-B Natriuret Pep 3810 pg/mL (0-900) H 03/15/17 16:21 Total Protein 6.4 g/dL (6.3-8.3) 03/16/17 07:23 Albumin 3.6 g/dL (3.5-5.0) 03/16/17 07:23 Globulin 2.8 gm/dL (2.2-3.9) 03/16/17 07:23 Albumin/Globulin Ratio 1.3 (1.0-2.1) 03/16/17 07:23 Triglycerides 56 mg/dL (0-149) 03/16/17 07:23 Cholesterol 130 mg/dL (0-199) 03/16/17 07:23 LDL Cholesterol Direct 51 mg/dL (0-129) 03/16/17 07:23 HDL Cholesterol 51 mg/dL (30-70) 03/16/17 07:23 Lipase 87 U/L (23-300) 03/15/17 16:21 TSH 3rd Generation 2.54 mIU/L (0.46-4.68) 03/16/17 07:23 Venous Blood Potassium 3.6 mmol/L (3.6-5.2) 03/15/17 16:45 Urine Color Yellow (YELLOW) 03/15/17 18:34 Urine Clarity Hazy (Clear) 03/15/17 18:34 Urine pH 5.0 (5.0-8.0) 03/15/17 18:34 Ur Specific Adkins 1.034 (1.003-1.030) H 03/15/17 18:34 Urine Protein 2+ mg/dL (NEGATIVE) H 03/15/17 18:34 Urine Glucose (UA) Normal mg/dL (Normal) 03/15/17 18:34 Urine Ketones Negative mg/dL (NEGATIVE) 03/15/17 18:34 Urine Blood Negative (NEGATIVE) 03/15/17 18:34 Urine Nitrate Negative (NEGATIVE) 03/15/17 18:34 Urine Bilirubin Negative (NEGATIVE) 03/15/17 18:34 Urine Urobilinogen Normal mg/dL (0.2-1.0) 03/15/17 18:34 Ur Leukocyte Esterase Neg Jaspreet/uL (Negative) 03/15/17 18:34 Urine WBC (Auto) 4 /hpf (0-5) 03/15/17 18:34 Urine RBC (Auto) 4 /hpf (0-3) H 03/15/17 18:34 Ur Squamous Epith Cells 5 /hpf (0-5) 03/15/17 18:34 Urine Bacteria Rare (<OCC) 03/15/17 18:34 - Hospital Course Hospital Course: 71-year-old lady with history of dilated nonischemic cardiomyopathy, with normal coronary catheterization, TAKASUBU. On medical treatment did not want the ICD to be placed. Was admitted yet again with abdominal pain and probable small bowel obstruction. Seen by surgery, treated conservatively. Did well, abdominal pain abated, moved her bowel, tolerated food intake, would be followed as o outpatient closely Discharge Exam - Head Exam Head Exam: ATRAUMATIC, NORMOCEPHALIC - Eye Exam Eye Exam: EOMI - ENT Exam ENT Exam: Mucous Membranes Moist - Neck Exam Neck exam: Full Rom - Respiratory Exam Respiratory Exam: NORMAL BREATHING PATTERN. absent: Rales - Cardiovascular Exam Cardiovascular Exam: REGULAR RHYTHM, Systolic Murmur - GI/Abdominal Exam GI & Abdominal Exam: Normal Bowel Sounds. absent: Distended, Organomegaly, Tenderness - Rectal Exam Rectal Exam: Deferred - Extremities Exam Extremities exam: normal capillary refill - Neurological Exam Neurological exam: Alert, Oriented x3 - Psychiatric Exam Psychiatric exam: Normal Mood - Skin Skin Exam: Dry Discharge Plan - Follow Up Plan Condition: GOOD Disposition: HOME/ ROUTINE Instructions: Bowel Obstruction (DC) Additional Instructions: FOLLOW UP WITH PRIMARY DOCTOR IN ONE WEEK Referrals: Atif Garay MD [Staff Provider] -
== END 2017-03-17 18:13 | disposition home or self-care (01) | DRG 389 ==
LOC: C.ER 15:44 → C.9E 19:25 → C.3T 20:07
PROVIDERS: ADMIT Internal Medicine Cardiovascular Disease; ATTEND Internal Medicine Cardiovascular Disease
DX: K56.60 Unspecified intestinal obstruction (principal); I13.0 Hypertensive heart and chronic kidney disease with heart failure and stage 1 through stage 4 chronic kidney disease, or unspecified chronic kidney disease; M31.4 Aortic arch syndrome [Takayasu]; I42.0 Dilated cardiomyopathy; E11.22 Type 2 diabetes mellitus with diabetic chronic kidney disease; I50.9 Heart failure, unspecified; K44.9 Diaphragmatic hernia without obstruction or gangrene; K57.90 Diverticulosis of intestine, part unspecified, without perforation or abscess without bleeding; M19.042 Primary osteoarthritis, left hand; M19.041 Primary osteoarthritis, right hand; N18.9 Chronic kidney disease, unspecified; Z90.710 Acquired absence of both cervix and uterus; Z86.010 Personal history of colon polyps

== ENCOUNTER 2017-03-29 03:29 | Inpatient (IN) | payer MEDICARE ==
[2017-03-29 03:29] VITALS: BMI 36.6
--- NOTE | 2017-03-29 03:42 | C.PDOC ---
History Of Present Illness pt presents with increasing abdominal pain. has had a similar event about 2 weeks ago with sbo. Pain was sharp. no cp or palpitations. Speaking in complete sentences Time Seen by Provider: 03/29/17 03:41 Chief Complaint (Nursing): Abdominal Pain History Per: Patient History/Exam Limitations: no limitations Onset/Duration Of Symptoms: Days Current Symptoms Are (Timing): Worse Context: Other Severity: Moderate Pain Scale Rating Of: 5 Location Of Pain/Discomfort: Diffuse Radiation Of Pain To:: None Quality Of Discomfort: Sharp, Aching, Cramping, Stabbing Associated Symptoms: Nausea. denies: Fever, Chills Exacerbating Factors: Movement Alleviating Factors: None Last Bowel Movement: Yesterday Recent travel outside of the [place]: No Additional History Per: Patient Abnormal Vaginal Bleeding: No Past Medical History Reviewed: Historical Data, Nursing Documentation, Vital Signs Vital Signs: Last Vital Signs Temp 97.6 F 03/29/17 06:33 Pulse 86 03/29/17 06:33 Resp 20 03/29/17 06:33 BP 117/86 03/29/17 06:33 Pulse Ox 99 03/29/17 06:39 - Medical History PMH: Arthritis (HANDS; RIGHT ARM), CHF, Colonic Polyps, Diverticulitis, HTN, Pancreatitis Denies: Atrial Fibrillation, Cardia Arrhythmia, Crohn's Disease, Fractures, Gastritis, Gall Bladder Disease, Hypercholesterolemia, Mitral Valve Prolapse, Osteoporosis, Peripheral Edema, Chronic Kidney Disease, Rheumatoid Arthritis Surgical History: Endoscopy Denies: Appendectomy, CABG, Carotid Endarterectomy, Cholecystectomy, Coronary Stent, Pacemaker, Tonsillectomy - [facility] Procedures COLONOSCOPY (01/19/14) Family History: States: No Known Family Hx - Social History Hx Alcohol Use: No Hx Substance Use: No - Immunization History Hx Tetanus Toxoid Vaccination: No Hx Influenza Vaccination: No Hx Pneumococcal Vaccination: Yes Review Of Systems Constitutional: Negative for: Fever, Chills ENT: Negative for: Throat Pain Cardiovascular: Negative for: Chest Pain Respiratory: Negative for: Shortness of Breath Gastrointestinal: Positive for: Nausea, Vomiting, Abdominal Pain. Negative for : Constipation Genitourinary: Negative for: Dysuria Musculoskeletal: Negative for: Back Pain Skin: Negative for: Rash, Lesions, Jaundice, Bruising Neurological: Negative for: Weakness Psych: Negative for: Anxiety Physical Exam - Physical Exam Appears: In Acute Distress Skin: Warm, Dry Head: Normacephalic Eye(s): bilateral: Normal Inspection Oral Mucosa: Moist Neck: Supple Chest: Symmetrical Cardiovascular: Rhythm Regular Respiratory: No Rales, Rhonchi (few at bases), No Wheezing Gastrointestinal/Abdominal: Bowel Sounds (tympanic to percussion), Soft (diffuse ), Tenderness, Distention, Guarding (voluntary) Back: No CVA Tenderness Extremity: Normal ROM Extremity: Bilateral: Atraumatic Neurological/Psych: Oriented x3, Normal Speech, Normal Cognition Gait: Steady ED Course And Treatment - Laboratory Results Result Diagrams: 03/29/17 04:13 03/29/17 04:13 ECG: Interpreted By Me, Viewed By Me ECG Rhythm: Sinus Rhythm (92), L BBB O2 Sat by Pulse Oximetry: 99 Pulse Ox Interpretation: Normal Progress Note: spoke with the surgical tech., will come and see the pt Disposition Counseled Patient/Family Regarding: Studies Performed, Diagnosis - Disposition Disposition Time: 03:41 Condition: UNKNOWN - Clinical Impression Clinical Impression: Abdominal pain, Nausea, Vomiting, Small bowel obstruction Physician Patient Turnover Patient Signed Over To: Galen Sibley DO Handoff Comments: pending call back from dr lantigua for admission
[2017-03-29] MEDS ORDERED: Morphine 4 MG/ML VIAL ONE (03:58)
[2017-03-29 04:19] LABS: BASO % 0.5 % (0.0-2.0); EOS % 0.3 % (0.0-4.0); LYMPH # 3.1 K/uL (1.0-4.3); LYMPH % 29.9 % (20.0-40.0); MEAN CELL VOLUME 89.1 fL (81.0-99.0); MEAN CORPUSCULAR HEMOGLOBIN 29.1 pg (27.0-31.0); MEAN CORPUSCULAR HGB CONC 32.7 g/dL (33.0-37.0); MEAN PLATELET VOLUME 9.6 fL (7.2-11.7); MONO # 0.5 K/uL (0.0-0.8); MONO % 5.3 % (0.0-10.0); NRBC % 0.1 % (0.0-2.0); RED CELL DISTRIBUTION WIDTH 14.1 % (11.5-14.5); WHITE BLOOD COUNT 10.2 K/uL (4.8-10.8)
[2017-03-29 04:24] LABS: RBC URINE 17 /hpf (0-3); URINE BACTERIA OCC (<OCC); URINE BILIRUBIN NEGATIVE (NEGATIVE); URINE BLOOD 1+ (NEGATIVE); URINE COLOR Yellow (YELLOW); URINE GLUCOSE (UA) NORMAL (Normal); URINE KETONE NEGATIVE (NEGATIVE); URINE LEUKOCYTE ESTERASE NEG Leu/uL (Negative); URINE PROTEIN 2+ mg/dL (NEGATIVE); URINE UROBILINOGEN NORMAL mg/dL (0.2-1.0); WBC URINE 4 /hpf (0-5)
[2017-03-29 04:34] LABS: ALB/GLOB RATIO 1.5 (1.0-2.1); BILIRUBIN,TOTAL 0.8 mg/dL (0.2-1.3); CALCIUM 9.3 mg/dl (8.6-10.4); TOTAL PROTEIN 7.8 g/dL (6.3-8.3)
[2017-03-29 04:36] LABS: POTASSIUM 3.8 mmol/L (3.6-5.2)
[2017-03-29] MEDS ORDERED: Iodixanol 320 MG/ML 100 ML BOTTLE IV ONE (05:18)
--- NOTE | 2017-03-29 06:29 | CT ---
EXAM: CT Abdomen and Pelvis With Intravenous Contrast CLINICAL HISTORY: 71 years old, female; Pain; Abdominal pain; Patient HX: 03-15-17; Additional info: Severe abdominal pain, TECHNIQUE: Axial computed tomography images of the abdomen and pelvis with intravenous contrast. This CT exam was performed using one or more of the following dose reduction techniques: automated exposure control, adjustment of the mA and/or kV according to patient size, and/or use of iterative reconstruction technique. Coronal and sagittal reformatted images were created and reviewed. CONTRAST: 100 mL of administered intravenously. EXAM DATE/TIME: 03/29/2017 5:05 AM COMPARISON: No relevant prior studies available. FINDINGS: Cardiomegaly incompletely imaged. There is a punctate 4 mm hypoattenuating left hepatic lesion too small to characterize. The gallbladder is distended. Hypotrophic right kidney with lobulated borders. There is a 1.8 cm left renal cyst. The spleen is normal. The pancreas is normal. There are fluid-filled mid small bowel loops measuring up to 4.5 cm in diameter. There is a transition in the right lower quadrant from dilated to nondilated small bowel axial images 45 through 65 and coronal images 38 through 58. The bowel is decompressed proximally and distally and some of the dilated loops have a U-shaped configuration. This combination of findings raises concern for closed loop obstruction. Similar findings were described in recent CT report however images were not provided for correlation. The colon is decompressed.Colonic diverticulosis. A normal appendix is identified coronal images 89 - 102. IMPRESSION: Findings concerning for closed-loop small bowel obstruction as discussed in detail above.
[2017-03-29] MEDS ORDERED: Piperacillin/Tazobact 3.375 gm 100 ML IVPB STA (06:38)
[2017-03-29] MEDS ORDERED: Piperacillin/Tazobact 3.375 gm 100 ML IVPB ONE (06:43)
[2017-03-29 07:40] LABS: VENOUS BLOOD GAS BASE EXCESS -11.4 mmol/L (0.0-2.0); VENOUS BLOOD GAS PCO2 25 mmHg (40-60); VENOUS BLOOD PH 7.32 (7.32-7.43)
[2017-03-29 08:51] LABS: POTASSIUM 3.7 mmol/L (3.6-5.2)
[2017-03-29 08:54] LABS: CALCIUM 8.9 mg/dl (8.6-10.4)
[2017-03-29] MEDS ORDERED: HYDROmorphone 1 mg/ml ISec IVP PRN (09:01)
[2017-03-29] MEDS ORDERED: Sodium Chloride 0.9% 1,000 ML IV SCH (09:15)
[2017-03-29] MEDS ORDERED: Sodium Chloride 0.9% 1,000 ML ONE (09:32)
[2017-03-29] MEDS ORDERED: HYDROmorphone 1 mg/ml ISec ONE (09:32)
[2017-03-29] MEDS: Metoprolol Succinate 100 mg XL Tab PO SCH (10:26)
--- NOTE | 2017-03-29 15:09 | CP.PCM.CON ---
History of Present Illness - History of Present Illness History of Present Illness: Surgery: Dr. Tay CC: Abd pain HPI: 71F w. PMH of CHF, HTN, and recurrent SBO presents to ED w. acute onset abd pain x 2 days. Pain began yesterday afternoon in the epigastric area and gradually worsened. Pain is intermittent and described as a sharp cramp. Pain is accompanied by decreased appetite. No Nausea/vomiting. Pt last had BM yesterday, diarrhea. No flatus since BM. Pt came in 2 weeks ago with similar symptoms and resolved w. conservative management. Last SBO prior to that was 3- 4 yrs ago. Pt denies BRIDGES/blurred vision, no F/C, no CP/palpitations, no SOB/cough , no hematuria/dysuria. PMH: HTN, CHF PSH: hysterectomy, D+C Meds: MAR reviewed ALL: enalapril, hctz Social: No ETOH/tobacco/drugs Fhx: non-contributory Review of Systems - Review of Systems All systems: reviewed and no additional remarkable complaints except (hpi) Past Patient History - Past Medical History & Family History Past Medical History?: Yes - Past Social History Smoking Status: Never Smoked - CARDIAC Hx Atrial Fibrillation: No Hx Cardia Arrhythmia: No Hx Congestive Heart Failure: Yes Hx Hypercholesterolemia: No Hx Hypertension: Yes Hx Mitral Valve Prolapse: No Hx Pacemaker: No Hx Peripheral Edema: No - PULMONARY Hx Respiratory Disorders: No - NEUROLOGICAL Hx Neurological Disorder: No - HEENT Hx HEENT Problems: No - RENAL Hx Chronic Kidney Disease: No - ENDOCRINE/METABOLIC Hx Endocrine Disorders: No Other/Comment: Borderline diabetes - HEMATOLOGICAL/ONCOLOGICAL Hx Blood Disorders: No - INTEGUMENTARY Hx Dermatological Problems: No - MUSCULOSKELETAL/RHEUMATOLOGICAL Hx Arthritis: Yes (HANDS; RIGHT ARM) Hx Fractures: No Hx Osteoporosis: No Hx Rheumatoid Arthritis: No - GASTROINTESTINAL Hx Crohn's Disease: No Hx Diverticulitis: Yes Hx Gall Bladder Disease: No Hx Gastritis: No Hx Pancreatitis: Yes - GENITOURINARY/GYNECOLOGICAL Hx Genitourinary Disorders: No - PSYCHIATRIC Hx Substance Use: No - SURGICAL HISTORY Hx Appendectomy: No Hx Carotid Endarterectomy: No Hx Cholecystectomy: No Hx Coronary Artery Bypass Graft: No Hx Coronary Stent: No Hx Tonsillectomy: No - ANESTHESIA Hx Anesthesia: Yes Hx Anesthesia Reactions: No Hx Malignant Hyperthermia: No Meds Allergies/Adverse Reactions: Allergies Allergy/AdvReac Type Severity Reaction Status Date / Time enalaprilat [From Vasotec] Allergy RASH Verified 03/29/17 03:37 hydrochlorothiazide Allergy RASH Verified 03/29/17 03:37 - Medications Medications: Current Medications Docusate Sodium (Colace) 100 mg PO BID [facility] Last Admin: 03/29/17 10:21 Dose: 100 mg Furosemide (Lasix) 40 mg PO DAILY [facility] Last Admin: 03/29/17 10:21 Dose: 40 mg Hydromorphone HCl (Dilaudid) 1 mg IVP Q6H PRN PRN Reason: Pain, moderate (4-7) Last Admin: 03/29/17 09:33 Dose: 1 mg Sodium Chloride (Sodium Chloride 0.9%) 1,000 mls @ 40 mls/hr IV .Q24H [facility] Last Admin: 03/29/17 09:26 Dose: 40 mls/hr Losartan Potassium (Cozaar) 100 mg PO DAILY [facility] Last Admin: 03/29/17 10:21 Dose: 100 mg Metoprolol Succinate (Toprol Xl) 100 mg PO DAILY [facility] Last Admin: 03/29/17 10:26 Dose: 100 mg Ondansetron HCl (Zofran Inj) 4 mg IVP Q6 PRN PRN Reason: Nausea/Vomiting Sucralfate (Carafate Tab) 1 gm PO BID [facility] Last Admin: 03/29/17 10:21 Dose: 1 gm Physical Exam - Constitutional Appears: Non-toxic, No Acute Distress - Head Exam Head Exam: ATRAUMATIC, NORMOCEPHALIC - Eye Exam Eye Exam: EOMI - ENT Exam ENT Exam: Mucous Membranes Moist, Normal External Ear Exam - Neck Exam Neck exam: Positive for: Full Rom - Respiratory Exam Respiratory Exam: NORMAL BREATHING PATTERN. absent: Accessory Muscle Use, Respiratory Distress - GI/Abdominal Exam GI & Abdominal Exam: Soft, Tenderness (mild epigastric). absent: Distended, Firm, Guarding, Rebound, Rigid - Extremities Exam Extremities exam: Negative for: calf tenderness, pedal edema - Neurological Exam Neurological exam: Alert, Oriented x3 Results - Vital Signs Recent Vital Signs: Last Vital Signs Temp 97.9 F 03/29/17 13:31 Pulse 74 03/29/17 14:54 Resp 19 03/29/17 14:54 BP 140/73 03/29/17 14:54 Pulse Ox 96 03/29/17 14:54 - Labs Result Diagrams: 03/29/17 04:13 03/29/17 08:20 Labs: Laboratory Results - last 24 hr 03/29/17 08:20 Sodium 141 Potassium 3.7 Chloride 109 H Carbon Dioxide 21 L Anion Gap 15 BUN 13 Creatinine 1.1 Est GFR ( Amer) 59 Est GFR (Non-Af Amer) 49 Random Glucose 110 H Calcium 8.9 - Imaging and Cardiology CT scan - abdomen Status: Image reviewed by me, Report reviewed by me Assessment & Plan - Assessment and Plan (Free Text) Assessment: 71F w. SBO -CT findings concerning for closed loop SBO -UGI w. small bowel follow through ordered, f/u results -NPO -IVF -pain meds -zofran -serial abd exams -monitor bowel fxn -d/w attending Tim PGY2
--- NOTE | 2017-03-29 15:27 | CP.PCM.HP ---
History of Present Illness - History of Present Illness History of Present Illness: Ms. 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 She had negative cardiac cath and lately the negative stress test for ischemia. She had ejection fraction of about 25-30% on medical treatment doing well however she was hesitant and did not want the implantable defibrillator. No syncope and no palpitation. She had prior abdominal surgery and frequent admissions for abdominal pain and CT scan that shows small bowel obstruction. The latest was 2 weeks ago at [facility], it was treated conservatively with adequate response. Was seen twice in the office since then for further observation without pain and she was tolerating food. At this time she reported again to the emergency department with similar pain, the CAT scan was again with small bowel obstruction. Was seen by surgery again and again conservative management is advised. She is improving with continue observation and try to avoid surgery. No shortness of breath and no chest pain. She had history of type 2 diabetes on diet and history of hypertension on medical treatment. Present on Admission - Present on Admission Any Indicators Present on Admission: No Review of Systems - Review of Systems Systems not reviewed;Unavailable: Unstable Vital Signs - Constitutional Constitutional: Anorexia, Weight Loss, Weakness - EENT Eyes: absent: Discharge, Exophthalmos Ears: absent: Ear Discharge Nose/Mouth/Throat: absent: Epistaxis - Cardiovascular Cardiovascular: absent: Acrocyanosis, Chest Pain, Diaphoresis, Dyspnea, Edema, Palpitations, Syncope - Respiratory Respiratory: absent: Cough, Dyspnea, Hemoptysis - Gastrointestinal Gastrointestinal: Abdominal Pain, Bloating, Constipation. absent: Vomiting - Genitourinary Genitourinary: absent: Change in Urinary Stream - Reproductive: Female Reproductive:Female: Post Menopausal Past Patient History - Past Medical History & Family History Past Medical History?: Yes - Past Social History Smoking Status: Never Smoked - CARDIAC Hx Atrial Fibrillation: No Hx Cardia Arrhythmia: No Hx Congestive Heart Failure: Yes Hx Hypercholesterolemia: No Hx Hypertension: Yes Hx Mitral Valve Prolapse: No Hx Pacemaker: No Hx Peripheral Edema: No - PULMONARY Hx Respiratory Disorders: No - NEUROLOGICAL Hx Neurological Disorder: No - HEENT Hx HEENT Problems: No - RENAL Hx Chronic Kidney Disease: No - ENDOCRINE/METABOLIC Hx Endocrine Disorders: No Other/Comment: Borderline diabetes - HEMATOLOGICAL/ONCOLOGICAL Hx Blood Disorders: No - INTEGUMENTARY Hx Dermatological Problems: No - MUSCULOSKELETAL/RHEUMATOLOGICAL Hx Arthritis: Yes (HANDS; RIGHT ARM) Hx Fractures: No Hx Osteoporosis: No Hx Rheumatoid Arthritis: No - GASTROINTESTINAL Hx Crohn's Disease: No Hx Diverticulitis: Yes Hx Gall Bladder Disease: No Hx Gastritis: No Hx Pancreatitis: Yes - GENITOURINARY/GYNECOLOGICAL Hx Genitourinary Disorders: No - PSYCHIATRIC Hx Substance Use: No - SURGICAL HISTORY Hx Appendectomy: No Hx Carotid Endarterectomy: No Hx Cholecystectomy: No Hx Coronary Artery Bypass Graft: No Hx Coronary Stent: No Hx Tonsillectomy: No - ANESTHESIA Hx Anesthesia: Yes Hx Anesthesia Reactions: No Hx Malignant Hyperthermia: No Meds Allergies/Adverse Reactions: Allergies Allergy/AdvReac Type Severity Reaction Status Date / Time enalaprilat [From Vasotec] Allergy RASH Verified 03/29/17 03:37 hydrochlorothiazide Allergy RASH Verified 03/29/17 03:37 Physical Exam - Constitutional Appears: Non-toxic - Head Exam Head Exam: ATRAUMATIC - Eye Exam Eye Exam: EOMI - ENT Exam ENT Exam: Mucous Membranes Moist - Neck Exam Neck exam: Negative for: Lymphadenopathy, Thyromegaly - Respiratory Exam Respiratory Exam: Clear to Auscultation Bilateral. absent: Rales - Cardiovascular Exam Cardiovascular Exam: REGULAR RHYTHM, Systolic Murmur - GI/Abdominal Exam GI & Abdominal Exam: Normal Bowel Sounds, Tenderness. absent: Organomegaly - Rectal Exam Rectal Exam: Deferred - Extremities Exam Extremities exam: Positive for: normal inspection. Negative for: calf tenderness - Neurological Exam Neurological exam: Alert, Oriented x3 - Psychiatric Exam Psychiatric exam: Anxious - Skin Skin Exam: Dry Results - Vital Signs Recent Vital Signs: Last Vital Signs Temp 97.9 F 03/29/17 13:31 Pulse 74 03/29/17 14:54 Resp 19 03/29/17 14:54 BP 140/73 03/29/17 14:54 Pulse Ox 96 03/29/17 14:54 - Labs Result Diagrams: 03/29/17 04:13 03/29/17 08:20 Labs: Laboratory Results - last 24 hr 03/29/17 08:20 Sodium 141 Potassium 3.7 Chloride 109 H Carbon Dioxide 21 L Anion Gap 15 BUN 13 Creatinine 1.1 Est GFR ( Amer) 59 Est GFR (Non-Af Amer) 49 Random Glucose 110 H Calcium 8.9 Assessment & Plan (1) Small bowel obstruction Status: Acute Comment: Observe again with the help of surgery, no need for intervention at this time with continue observation with conservative management. She received Zosyn and nothing by mouth, consider a small bowel follow-through after upper GI series (2) CHF (congestive heart failure), NYHA class II Status: Chronic Comment: Chronic left ventricular systolic heart failure on medical treatment stable (3) Diabetes 1.5, managed as type 2 Status: Chronic (4) Hypertension Status: Chronic Decision To Admit - Pt Status Changed To: Hospital Disposition Of: Inpatient - Admit Certification Admit to Inpatient:: After my assessment, the patient will require hospitalization for at least two midnights. This is because of the severity of symptoms shown, intensity of services needed, and/or the medical risk in this patient being treated as an outpatient. - InPatient: Physician Admission Certification:: He has - . Bed Request Type: Regular
[2017-03-29 18:19] VITALS: RESP 20
[2017-03-30 06:12] LABS: BASO % 0.5 % (0.0-2.0); EOS # 0.1 K/uL (0.0-0.7); EOS % 0.9 % (0.0-4.0); HEMATOCRIT 39.3 % (34.0-47.0); LYMPH # 2.7 K/uL (1.0-4.3); LYMPH % 35.5 % (20.0-40.0); MEAN CELL VOLUME 90.5 fL (81.0-99.0); MEAN CORPUSCULAR HEMOGLOBIN 28.7 pg (27.0-31.0); MEAN CORPUSCULAR HGB CONC 31.7 g/dL (33.0-37.0); MEAN PLATELET VOLUME 10.1 fL (7.2-11.7); MONO # 0.4 K/uL (0.0-0.8); MONO % 5.7 % (0.0-10.0); RED CELL DISTRIBUTION WIDTH 14.6 % (11.5-14.5); WHITE BLOOD COUNT 7.6 K/uL (4.8-10.8)
[2017-03-30 06:43] LABS: ALB/GLOB RATIO 1.3 (1.0-2.1); BILIRUBIN,TOTAL 0.6 mg/dL (0.2-1.3)
[2017-03-30 06:44] LABS: CALCIUM 8.7 mg/dl (8.6-10.4)
--- NOTE | 2017-03-30 07:13 | CP.PCM.PN ---
Subjective - Date & Time of Evaluation Date of Evaluation: 03/30/17 Time of Evaluation: 07:10 - Subjective Subjective: Gen Sx: Dr Tay Pt S&E. NAEO. Denies abdominal pain states she feels much better. Passing flatus. Denies N/V. states she is very thirsty/hungry Objective - Vital Signs/Intake and Output Vital Signs (last 24 hours): Temp Pulse Resp BP Pulse Ox 98.4 F 75 20 130/78 97 03/30/17 00:00 03/30/17 00:00 03/30/17 00:00 03/30/17 00:00 03/30/17 00:00 Intake and Output: 03/30/17 03/30/17 06:59 18:59 Intake Total 640 Balance 640 - Medications Medications: Current Medications Docusate Sodium (Colace) 100 mg PO BID [facility] Last Admin: 03/29/17 18:12 Dose: 100 mg Furosemide (Lasix) 40 mg PO DAILY [facility] Last Admin: 03/29/17 10:21 Dose: 40 mg Hydromorphone HCl (Dilaudid) 1 mg IVP Q6H PRN PRN Reason: Pain, moderate (4-7) Last Admin: 03/29/17 09:33 Dose: 1 mg Sodium Chloride (Sodium Chloride 0.9%) 1,000 mls @ 40 mls/hr IV .Q24H [facility] Last Admin: 03/29/17 09:26 Dose: 40 mls/hr Losartan Potassium (Cozaar) 100 mg PO DAILY [facility] Last Admin: 03/29/17 10:21 Dose: 100 mg Metoprolol Succinate (Toprol Xl) 100 mg PO DAILY [facility] Last Admin: 03/29/17 10:26 Dose: 100 mg Ondansetron HCl (Zofran Inj) 4 mg IVP Q6 PRN PRN Reason: Nausea/Vomiting Last Admin: 03/29/17 18:12 Dose: 4 mg Sucralfate (Carafate Tab) 1 gm PO BID [facility] Last Admin: 03/29/17 18:12 Dose: 1 gm - Labs Labs: 03/30/17 05:58 03/30/17 05:58 PT 11.1 SECONDS (9.7-12.2) 03/29/17 04:13 INR 1.0 03/29/17 04:13 APTT 31 SECONDS (21-34) 03/29/17 04:13 - Constitutional Appears: Non-toxic, No Acute Distress - ENT Exam ENT Exam: Mucous Membranes Dry - Respiratory Exam Respiratory Exam: absent: Accessory Muscle Use, Respiratory Distress - Cardiovascular Exam Cardiovascular Exam: REGULAR RHYTHM. absent: Tachycardia - GI/Abdominal Exam GI & Abdominal Exam: Soft. absent: Distended, Tenderness - Extremities Exam Extremities Exam: absent: Pedal Edema - Neurological Exam Neurological Exam: Alert, Awake, Oriented x3 - Psychiatric Exam Psychiatric exam: Normal Affect, Normal Mood - Skin Skin Exam: Normal Color, Warm Assessment and Plan - Assessment and Plan (Free Text) Assessment: 71F w/ hx of repeat admissions for SBO Plan: pt asymptomatic at this time given recurrent admission we plan for SB series today to evaluate will inc fluids slightly given dehydration will d/w Dr Maggi Regalado, PGY2
[2017-03-30] MEDS: Sodium Chloride 0.9% 1,000 ML IV SCH ×2 (07:58→17:10)
[2017-03-30] MEDS: Metoprolol Succinate 100 mg XL Tab PO SCH (10:45)
[2017-03-30] MEDS ORDERED: Barium Sulfate for Susp 96% w/w 176g Bottle PR ONE (12:26)
--- NOTE | 2017-03-30 15:33 | CP.PCM.PN ---
Subjective - Date & Time of Evaluation Date of Evaluation: 03/30/17 Time of Evaluation: 12:00 - Subjective Subjective: doing well seen by surgery, passing gaz, follow with x ray Objective - Vital Signs/Intake and Output Vital Signs (last 24 hours): Temp Pulse Resp BP Pulse Ox 98.5 F 68 20 124/70 97 03/30/17 08:00 03/30/17 08:00 03/30/17 08:00 03/30/17 10:44 03/30/17 08:00 Intake and Output: 03/30/17 03/30/17 06:59 18:59 Intake Total 640 525 Balance 640 525 - Medications Medications: Current Medications Docusate Sodium (Colace) 100 mg PO BID [facility] Last Admin: 03/30/17 10:45 Dose: 100 mg Furosemide (Lasix) 40 mg PO DAILY [facility] Last Admin: 03/30/17 10:44 Dose: 40 mg Hydromorphone HCl (Dilaudid) 1 mg IVP Q6H PRN PRN Reason: Pain, moderate (4-7) Last Admin: 03/29/17 09:33 Dose: 1 mg Sodium Chloride (Sodium Chloride 0.9%) 1,000 mls @ 100 mls/hr IV .Q10H [facility] Last Admin: 03/30/17 07:58 Dose: Not Given Losartan Potassium (Cozaar) 100 mg PO DAILY [facility] Last Admin: 03/30/17 10:45 Dose: 100 mg Metoprolol Succinate (Toprol Xl) 100 mg PO DAILY [facility] Last Admin: 03/30/17 10:45 Dose: 100 mg Ondansetron HCl (Zofran Inj) 4 mg IVP Q6 PRN PRN Reason: Nausea/Vomiting Last Admin: 03/29/17 18:12 Dose: 4 mg Sucralfate (Carafate Tab) 1 gm PO BID [facility] Last Admin: 03/30/17 10:45 Dose: 1 gm - Labs Labs: 03/30/17 05:58 03/30/17 05:58 PT 11.1 SECONDS (9.7-12.2) 03/29/17 04:13 INR 1.0 03/29/17 04:13 APTT 31 SECONDS (21-34) 03/29/17 04:13 - Constitutional Appears: Non-toxic - Head Exam Head Exam: ATRAUMATIC - Eye Exam Eye Exam: EOMI - ENT Exam ENT Exam: Mucous Membranes Moist - Neck Exam Neck Exam: absent: Lymphadenopathy, Thyromegaly - Respiratory Exam Respiratory Exam: Clear to Ausculation Bilateral. absent: Rales - Cardiovascular Exam Cardiovascular Exam: REGULAR RHYTHM, Murmur - GI/Abdominal Exam GI & Abdominal Exam: Normal Bowel Sounds. absent: Tenderness, Organomegaly - Rectal Exam Rectal Exam: Deferred - Extremities Exam Extremities Exam: Normal Capillary Refill. absent: Calf Tenderness - Neurological Exam Neurological Exam: Alert, Oriented x3 - Psychiatric Exam Psychiatric exam: Anxious - Skin Skin Exam: Dry Assessment and Plan (1) Small bowel obstruction Status: Acute (2) CHF (congestive heart failure), NYHA class II Status: Chronic (3) Diabetes 1.5, managed as type 2 Status: Chronic (4) Hypertension Status: Chronic
--- NOTE | 2017-03-30 17:32 | RAD ---
PROCEDURE: Small-bowel series 03/30/2017 HISTORY: SBO COMPARISON: Correlation made with CT scan of the abdomen and pelvis dated 03/29/2017. TECHNIQUE: Single contrast small bowel series performed in standard fashion. Multiple overhead radiographic images of the abdomen performed at interval up to 3 hours 30 minutes. Fluoroscopic spot compression films of the abdomen subsequently obtained. FINDINGS: Oral contrast material passed from stomach into the small bowel with no evidence of delay or obstruction. Most of the proximal small bowel exhibit normal contour however several right-sided loops of more distal small bowel likely mid to distal jejunum demonstrated mild dilatation measuring up to 4 cm. . No evidence of complete obstruction however with oral contrast material reaching the cecum and at ascending colon at approximately 2 hrs, 30 min . Cecum located in the right lower- mid lower pelvis . There is no evidence of complete obstruction. A transition point not visualized on this and however possibility of a partial and or intermittent small bowel obstruction not completely excluded. . Incidental note made of a faint elliptical shaped filling defect within the distal loop of mid small bowel seen on 1 hour 35 minutes film which probably represent small bubble of air were food debris. IMPRESSION: No evidence of complete acute mechanical small bowel obstruction. . There is the dilatation of several right-sided the loops of more distal small bowel likely distal jejunum which measure up 4 cm. N a transition point was not definitively identified however the possibility of a partial and or intermittent obstruction not completely excluded
[2017-03-31 00:44] VITALS: TEMP 97.6
[2017-03-31] MEDS: Sodium Chloride 0.9% 1,000 ML IV SCH ×2 (03:26→13:44)
--- NOTE | 2017-03-31 09:41 | CP.PCM.PN ---
Subjective - Date & Time of Evaluation Date of Evaluation: 03/31/17 Time of Evaluation: 09:39 - Subjective Subjective: SURGERY PROGRESS NOTE FOR DR. AREVALO 71 seen and examined at bedside. Patient denies pain, nausea, vomiting. Recently had a BM this morning. State the BM was clear contrast that she had the day before. Admits to passing gas. Objective - Vital Signs/Intake and Output Vital Signs (last 24 hours): Temp Pulse Resp BP Pulse Ox 97.6 F 62 20 123/75 95 03/31/17 00:00 03/31/17 00:00 03/31/17 00:00 03/31/17 00:00 03/31/17 00:00 Intake and Output: 03/31/17 03/31/17 06:59 18:59 Intake Total 1000 Balance 1000 - Medications Medications: Current Medications Docusate Sodium (Colace) 100 mg PO BID [facility] Last Admin: 03/30/17 17:08 Dose: 100 mg Furosemide (Lasix) 40 mg PO DAILY [facility] Last Admin: 03/30/17 10:44 Dose: 40 mg Hydromorphone HCl (Dilaudid) 1 mg IVP Q6H PRN PRN Reason: Pain, moderate (4-7) Last Admin: 03/29/17 09:33 Dose: 1 mg Sodium Chloride (Sodium Chloride 0.9%) 1,000 mls @ 100 mls/hr IV .Q10H [facility] Last Admin: 03/31/17 03:26 Dose: 100 mls/hr Losartan Potassium (Cozaar) 100 mg PO DAILY [facility] Last Admin: 03/30/17 10:45 Dose: 100 mg Metoprolol Succinate (Toprol Xl) 100 mg PO DAILY [facility] Last Admin: 03/30/17 10:45 Dose: 100 mg Ondansetron HCl (Zofran Inj) 4 mg IVP Q6 PRN PRN Reason: Nausea/Vomiting Last Admin: 03/29/17 18:12 Dose: 4 mg Sucralfate (Carafate Tab) 1 gm PO BID [facility] Last Admin: 03/30/17 17:08 Dose: 1 gm - Labs Labs: 03/30/17 05:58 03/30/17 05:58 PT 11.1 SECONDS (9.7-12.2) 03/29/17 04:13 INR 1.0 03/29/17 04:13 APTT 31 SECONDS (21-34) 03/29/17 04:13 - Constitutional Appears: Non-toxic, No Acute Distress - Respiratory Exam Respiratory Exam: Clear to Ausculation Bilateral, NORMAL BREATHING PATTERN - Cardiovascular Exam Cardiovascular Exam: REGULAR RHYTHM, +S1, +S2 - GI/Abdominal Exam GI & Abdominal Exam: Soft. absent: Distended, Firm, Guarding, Rigid, Tenderness , Rebound - Neurological Exam Neurological Exam: Alert, Awake - Psychiatric Exam Psychiatric exam: Normal Affect, Normal Mood Assessment and Plan - Assessment and Plan (Free Text) Assessment: 71F w/ hx of repeat admissions for SBO Small bowel imaging: no complete obstruction noted. right side loops of bowel measuring 4cm. no transition point. - no evidence of obstruction, cannot rule out incomplete or interminent obstruction Plan: pt asymptomatic at this time ADAT will d/w Dr Maggi Perez, PGY1
[2017-03-31] MEDS: Metoprolol Succinate 100 mg XL Tab PO SCH (09:47)
--- NOTE | 2017-03-31 15:58 | CP.PCM.PN ---
Subjective - Date & Time of Evaluation Date of Evaluation: 03/31/17 Time of Evaluation: 13:00 - Subjective Subjective: pt seen and today denies pain, nausea, vomiting, passing gas , tolerated liquid diet without any issues . surgery seen today and advance d diet to regular for lunch and tolerated , darius seen patient today and discussed the plan with patient Objective - Vital Signs/Intake and Output Vital Signs (last 24 hours): Temp Pulse Resp BP Pulse Ox 97.6 F 62 20 134/67 95 03/31/17 00:00 03/31/17 00:00 03/31/17 00:00 03/31/17 09:48 03/31/17 00:00 Intake and Output: 03/31/17 03/31/17 06:59 18:59 Intake Total 1000 1380 Balance 1000 1380 - Medications Medications: Current Medications Docusate Sodium (Colace) 100 mg PO BID [facility] Last Admin: 03/31/17 09:47 Dose: 100 mg Furosemide (Lasix) 40 mg PO DAILY [facility] Last Admin: 03/31/17 09:48 Dose: 40 mg Hydromorphone HCl (Dilaudid) 1 mg IVP Q6H PRN PRN Reason: Pain, moderate (4-7) Last Admin: 03/29/17 09:33 Dose: 1 mg Sodium Chloride (Sodium Chloride 0.9%) 1,000 mls @ 100 mls/hr IV .Q10H [facility] Last Admin: 03/31/17 13:44 Dose: 100 mls/hr Losartan Potassium (Cozaar) 100 mg PO DAILY [facility] Last Admin: 03/31/17 09:47 Dose: 100 mg Metoprolol Succinate (Toprol Xl) 100 mg PO DAILY [facility] Last Admin: 03/31/17 09:47 Dose: 100 mg Ondansetron HCl (Zofran Inj) 4 mg IVP Q6 PRN PRN Reason: Nausea/Vomiting Last Admin: 03/29/17 18:12 Dose: 4 mg Sucralfate (Carafate Tab) 1 gm PO BID [facility] Last Admin: 03/31/17 09:47 Dose: 1 gm - Labs Labs: 03/30/17 05:58 03/30/17 05:58 PT 11.1 SECONDS (9.7-12.2) 03/29/17 04:13 INR 1.0 03/29/17 04:13 APTT 31 SECONDS (21-34) 03/29/17 04:13 Assessment and Plan - Assessment and Plan (Free Text) Assessment: 71 yr old female admitted for Abdominal pain, Nausea, Vomiting, Small bowel obstruction small bowel x ray-No evidence of complete acute mechanical small bowel obstruction. . There is the dilatation of several right-sided the loops of more distal small bowel likely distal jejunum which measure up 4 cm. N a transition point was not definitively identified however the possibility of a partial and or intermittent obstruction not completely excluded pt tolerated diet without any issues seen by Dr. Mckeon , cleared for discharge home today D/W Dr. Garay, stable for discharge home otday and f/u with Dr. Garay office in 1 week discharge plan discussed with patient who understands and agrees with plan Pt instructed to returns to ED if symptoms returns
[2017-03-31 16:33] VITALS: BP 130/75; PULSE 70; O2SAT 97
--- NOTE | 2017-04-01 08:45 | CARD ---
APPROVED REPORT EKG Measurement Heart [id number] <Conclusion> Normal sinus rhythm Left bundle branch block Abnormal ECG
--- NOTE | 2017-04-02 12:35 | CP.PCM.DIS ---
Provider - Provider Date of Admission: 03/29/17 08:05 Attending physician: Atif Garay MD Time Spent in preparation of Discharge (in minutes): 20 Diagnosis - Discharge Diagnosis (1) Small bowel obstruction Status: Acute (2) CHF (congestive heart failure), NYHA class II Status: Chronic (3) Diabetes 1.5, managed as type 2 Status: Chronic (4) Hypertension Status: Chronic Hospital Course - Lab Results Lab Results: Most Recent Lab Values WBC 7.6 K/uL (4.8-10.8) 03/30/17 05:58 RBC 4.34 Mil/uL (3.80-5.20) 03/30/17 05:58 Hgb 12.5 g/dL (11.0-16.0) 03/30/17 05:58 Hct 39.3 % (34.0-47.0) 03/30/17 05:58 MCV 90.5 fL (81.0-99.0) 03/30/17 05:58 MCH 28.7 pg (27.0-31.0) 03/30/17 05:58 MCHC 31.7 g/dL (33.0-37.0) L 03/30/17 05:58 RDW 14.6 % (11.5-14.5) H 03/30/17 05:58 Plt Count 167 K/uL (130-400) 03/30/17 05:58 MPV 10.1 fL (7.2-11.7) 03/30/17 05:58 Neut % (Auto) 57.4 % (50.0-75.0) 03/30/17 05:58 Lymph % (Auto) 35.5 % (20.0-40.0) 03/30/17 05:58 [place] % (Auto) 5.7 % (0.0-10.0) 03/30/17 05:58 Eos % (Auto) 0.9 % (0.0-4.0) 03/30/17 05:58 Baso % (Auto) 0.5 % (0.0-2.0) 03/30/17 05:58 Neut # 4.4 K/uL (1.8-7.0) 03/30/17 05:58 Lymph # 2.7 K/uL (1.0-4.3) 03/30/17 05:58 [place] # 0.4 K/uL (0.0-0.8) 03/30/17 05:58 Eos # 0.1 K/uL (0.0-0.7) 03/30/17 05:58 Baso # 0.0 K/uL (0.0-0.2) 03/30/17 05:58 PT 11.1 SECONDS (9.7-12.2) 03/29/17 04:13 INR 1.0 03/29/17 04:13 APTT 31 SECONDS (21-34) 03/29/17 04:13 pO2 57 mm/Hg (30-55) H 03/29/17 07:35 VBG pH 7.32 (7.32-7.43) 03/29/17 07:35 VBG pCO2 25 mmHg (40-60) L 03/29/17 07:35 VBG HCO3 15.7 mmol/L 03/29/17 07:35 VBG Total CO2 13.7 mmol/L (22-28) L 03/29/17 07:35 VBG O2 Sat (Calc) 92.1 % (40-65) H 03/29/17 07:35 VBG Base Excess -11.4 mmol/L (0.0-2.0) L 03/29/17 07:35 VBG Potassium 2.0 mmol/L (3.6-5.2) L* 03/29/17 07:35 Sodium 152.0 mmol/l (132-148) H 03/29/17 07:35 Chloride 126.0 mmol/L (98-107) H 03/29/17 07:35 Glucose 66 mg/dl (65-105) 03/29/17 07:35 Lactate 0.6 mmol/L (0.7-2.1) L 03/29/17 07:35 Crit Value Called To Dr hernández 03/29/17 07:35 Crit Value Called By Bakari mendez manager portable 03/29/17 07:35 Crit Value Read Back Y 03/29/17 07:35 Blood Gas Notified Time 741 03/29/17 07:35 Sodium 144 mmol/L (132-148) 03/30/17 05:58 Potassium 4.0 mmol/L (3.6-5.2) 03/30/17 05:58 Chloride 111 mmol/L (98-107) H 03/30/17 05:58 Carbon Dioxide 22 mmol/L (22-30) 03/30/17 05:58 Anion Gap 15 (10-20) 03/30/17 05:58 BUN 11 mg/dL (7-17) 03/30/17 05:58 Creatinine 1.1 MG/DL (0.7-1.2) 03/30/17 05:58 Est GFR ( Amer) 59 03/30/17 05:58 Est GFR (Non-Af Amer) 49 03/30/17 05:58 Random Glucose 84 mg/dL (65-105) 03/30/17 05:58 Calcium 8.7 mg/dl (8.6-10.4) 03/30/17 05:58 Total Bilirubin 0.6 mg/dL (0.2-1.3) 03/30/17 05:58 AST 27 U/L (14-36) 03/30/17 05:58 ALT 21 U/L (9-52) 03/30/17 05:58 Alkaline Phosphatase 63 U/L (38-126) 03/30/17 05:58 Total Protein 7.0 g/dL (6.3-8.3) 03/30/17 05:58 Albumin 3.9 g/dL (3.5-5.0) 03/30/17 05:58 Globulin 3.1 gm/dL (2.2-3.9) 03/30/17 05:58 Albumin/Globulin Ratio 1.3 (1.0-2.1) 03/30/17 05:58 Lipase 64 U/L (23-300) 03/29/17 04:13 Venous Blood Potassium 2.0 mmol/L (3.6-5.2) L* 03/29/17 07:35 Urine Color Yellow (YELLOW) 03/29/17 04:13 Urine Clarity Hazy (Clear) 03/29/17 04:13 Urine pH 5.0 (5.0-8.0) 03/29/17 04:13 Ur Specific [place] 1.021 (1.003-1.030) 03/29/17 04:13 Urine Protein 2+ mg/dL (NEGATIVE) H 03/29/17 04:13 Urine Glucose (UA) Normal mg/dL (Normal) 03/29/17 04:13 Urine Ketones Negative mg/dL (NEGATIVE) 03/29/17 04:13 Urine Blood 1+ (NEGATIVE) H 03/29/17 04:13 Urine Nitrate Negative (NEGATIVE) 03/29/17 04:13 Urine Bilirubin Negative (NEGATIVE) 03/29/17 04:13 Urine Urobilinogen Normal mg/dL (0.2-1.0) 03/29/17 04:13 Ur Leukocyte Esterase Neg Jaspreet/uL (Negative) 03/29/17 04:13 Urine WBC (Auto) 4 /hpf (0-5) 03/29/17 04:13 Urine RBC (Auto) 17 /hpf (0-3) H 03/29/17 04:13 Ur Squamous Epith Cells 9 /hpf (0-5) H 03/29/17 04:13 Urine Bacteria Occ (<OCC) H 03/29/17 04:13 Hyaline Casts 6-10 /lpf (0-2) H 03/29/17 04:13 Broad Casts 5 /lpf (0-1) 03/29/17 04:13 - Hospital Course Hospital Course: 71-year-old admitted with small bowel obstruction yet again, treated conservatively with improvement. CHF was stable on medical treatment, small bowel follow-through revealed no acute obstruction, partial or intermittent obstruction could not be ruled out. Discharged and follow-up closely as outpatient Discharge Exam - Head Exam Head Exam: ATRAUMATIC - Eye Exam Eye Exam: EOMI - ENT Exam ENT Exam: Mucous Membranes Moist - Neck Exam Neck exam: Full Rom - Respiratory Exam Respiratory Exam: Clear to PA & Lateral, NORMAL BREATHING PATTERN. absent: Rales - Cardiovascular Exam Cardiovascular Exam: REGULAR RHYTHM, Systolic Murmur - GI/Abdominal Exam GI & Abdominal Exam: Normal Bowel Sounds. absent: Organomegaly - Rectal Exam Rectal Exam: Deferred - Extremities Exam Extremities exam: normal capillary refill - Neurological Exam Neurological exam: Alert, Oriented x3 - Psychiatric Exam Psychiatric exam: Anxious - Skin Skin Exam: Dry Discharge Plan - Follow Up Plan Condition: GOOD Disposition: HOME/ ROUTINE Instructions: Acute Nausea and Vomiting (DC), Acute Abdominal Pain (DC), Bowel Obstruction (DC) Additional Instructions: Please f/u with Dr. Garay office in 1 week Resume home medications Referrals: Atif Garay MD [Staff Provider] -
== END 2017-03-31 17:00 | disposition home or self-care (01) | DRG 389 ==
LOC: C.ER 03:29 → C.9E 08:05 → C.3T 16:50
PROVIDERS: ADMIT Internal Medicine Cardiovascular Disease; ATTEND Internal Medicine Cardiovascular Disease
DX: K56.60 Unspecified intestinal obstruction (principal); I42.0 Dilated cardiomyopathy; I11.0 Hypertensive heart disease with heart failure; I50.22 Chronic systolic (congestive) heart failure; E11.9 Type 2 diabetes mellitus without complications; Z79.4 Long term (current) use of insulin

== ENCOUNTER 2017-07-17 21:24 | Inpatient (IN) | payer MEDICARE, OTHER ==
[2017-07-17 21:24] VITALS: BMI 36.6
[2017-07-17] MEDS ORDERED: Sodium Chloride 0.9% 1,000 ML IV ONE (21:42)
--- NOTE | 2017-07-17 21:44 | C.PDOC ---
History Of Present Illness 72 year old female presents to the ED with complaints of intermittent diffuse abdominal pain beginning suddenly earlier this afternoon. Patient notes 3-4 episodes of vomiting, sweats, decreased appetite, and constipation. She states she has been seen at [facility] for similar complaints and was diagnosed with diverticulitis. Patient denies back pain, radiation of pain, or urinary symptoms. Chief Complaint (Nursing): Abdominal Pain History Per: Patient, Family (daughter ) History/Exam Limitations: no limitations Onset/Duration Of Symptoms: Hrs, Intermittent Episodes, Sudden Onset Current Symptoms Are (Timing): Still Present Location Of Pain/Discomfort: Diffuse Radiation Of Pain To:: None Quality Of Discomfort: "Pain" Past Medical History Reviewed: Historical Data, Nursing Documentation, Vital Signs Vital Signs: Last Vital Signs Temp 98 F 07/17/17 23:25 Pulse 90 07/17/17 23:25 Resp 24 07/17/17 23:25 BP 153/89 H 07/17/17 23:25 Pulse Ox 93 L 07/18/17 00:21 - Medical History PMH: Arthritis (HANDS; RIGHT ARM), CHF, Colonic Polyps, Diverticulitis, HTN, Pancreatitis Surgical History: Endoscopy Denies: Appendectomy, CABG, Carotid Endarterectomy, Cholecystectomy, Coronary Stent, Pacemaker, Tonsillectomy Family History: States: Unknown Family Hx - Social History Hx Alcohol Use: No Hx Substance Use: No - Immunization History Hx Tetanus Toxoid Vaccination: No Hx Influenza Vaccination: No Hx Pneumococcal Vaccination: Yes Review Of Systems Constitutional: Positive for: Sweats. Negative for: Fever, Chills Gastrointestinal: Positive for: Vomiting, Abdominal Pain, Constipation. Negative for: Nausea, Diarrhea Physical Exam - Physical Exam Appears: Non-toxic, Other (Patient is obese and somnolent but arousable ) Skin: Warm, Diaphoretic Head: Atraumatic, Normacephalic Eye(s): bilateral: PERRL, EOMI, Conjunctiva Pale Oral Mucosa: Moist Neck: Supple Chest: Symmetrical, No Deformity Cardiovascular: Rhythm Regular, No Murmur Respiratory: No Rales, No Rhonchi, No Wheezing, Other (clear to auscultation bilaterally ) Gastrointestinal/Abdominal: Soft, Tenderness (diffuse abdominal tenderness, most pronounced in RUQ ), No Distention, No Guarding, No Rebound ED Course And Treatment - Laboratory Results Result Diagrams: 07/17/17 21:47 07/17/17 21:47 ECG: Interpreted By Ia ECG Rhythm: Sinus Rhythm, L BBB O2 Sat by Pulse Oximetry: 93 (RA) - CT Scan/US CT Abdomen and Pelvis With Intravenous Contrast Other Rad Studies (CT/US): Read By Radiologist, Radiology Report Reviewed CT/US Interpretation: FINDINGS: Lower thorax: A the heart isn't enlarged. There is a small pericardial effusion. There is a hiatal. hernia. There is atelectasis and scarring at the lung bases. ABDOMEN: Liver: There is a small hepatic cyst. Gallbladder and bile ducts: unremarkable. Pancreas: Pancreas is atrophic. Spleen: Spleen is unremarkable. There is an accessory spleen in the left upper quadrant. Adrenals: unremarkable. Kidneys and ureters: Right kidney is mildly atrophic. There is focal right renal scarring. There is a left. renal cyst. There is less extensive left renal scarring.There is no pelvocaliectasis or ureterectasis. Stomach and bowel: Stomach is almost empty. Rotation is normal. Duodenum and proximal jejunum. are normal in caliber. There is increasing distention in mid jejunum and mid small bowel. There are. dilated loops in the midabdomen. There is focal caliber change at the level of the umbilicus, images. 95-115. There is swirling of the mesentery consistent with volvulus. This may be associated with an. abdominal wall adhesion, image 111 series 3 small bowel distal to the twist is decompressed. Terminal ileum is decompressed. Appendix is unremarkable.Colon is incompletely distended which. limits evaluation. There is scattered diverticulosis. Appendix: See stomach and bowel. PELVIS: Bladder: unremarkable. Reproductive: Unremarkable. ABDOMEN and PELVIS: Intraperitoneal space: There is free fluid in the pelvis. There is no free air. Bones/joints: There are degenerative changes in the osseus structures. Soft tissues: there is a very small fat containing umbilical hernia. There is a small fat containing left. inguinal hernia. Vasculature: There are vascular calcifications. Lymph nodes: There is no pathologic adenopathy. IMPRESSION: Mid small bowel obstruction most likely due to volvulus possibly at the level of an. adhesion; no acute solid visceral abnormality. Progress Note: Abdomen pelvis CT and labs were ordered. Patient was given 0.5 mg of dilaudid and IV fluids. Medical Decision Making Medical Decision Making: Spoke to Dr. Tay, Dr. Garay, and radiologist regarding pt's CT scan. Pt will be admitted to Dr. Garay's services with Dr. Tay consulting. Disposition Discussed With Dr.: Atif Garay Doctor Will See Patient In The: Hospital Counseled Patient/Family Regarding: Studies Performed, Diagnosis - Disposition Disposition: HOSPITALIZED Disposition Time: 00:09 Condition: GUARDED Forms: [facility] (Slovak) - Clinical Impression Clinical Impression: Volvulus of intestine - Scribe Statement The provider has reviewed the documentation as recorded by the Scribe Candice Griffith All medical record entries made by the Scribe were at my direction and personally dictated by me. I have reviewed the chart and agree that the record accurately reflects my personal performance of the history, physical exam, medical decision making, and the department course for this patient. I have also personally directed, reviewed, and agree with the discharge instructions and disposition. Decision To Admit - Pt Status Changed To: Hospital Disposition Of: Inpatient - Admit Certification Admit to Inpatient:: After my assessment, the patient will require hospitalization for at least two midnights. This is because of the severity of symptoms shown, intensity of services needed, and/or the medical risk in this patient being treated as an outpatient. - InPatient: Physician Admission Certification:: Jamison Ny . Bed Request Type: Regular Admitting Physician: Atif Garay Patient Diagnosis: Volvulus of intestine
[2017-07-17] MEDS ORDERED: HYDROmorphone 0.5 mg/0.5 ml ISec IVP STA (21:49)
[2017-07-17] MEDS ORDERED: HYDROmorphone 0.5 mg/0.5 ml ISec ONE (21:50)
[2017-07-17 22:00] LABS: BASO % 0.4 % (0.0-2.0); HEMATOCRIT 41.8 % (34.0-47.0); LYMPH # 1.8 K/uL (1.0-4.3); LYMPH % 15.5 % (20.0-40.0); MEAN CELL VOLUME 88.5 fL (81.0-99.0); MEAN CORPUSCULAR HEMOGLOBIN 29.8 pg (27.0-31.0); MEAN CORPUSCULAR HGB CONC 33.7 g/dL (33.0-37.0); MEAN PLATELET VOLUME 9.4 fL (7.2-11.7); MONO # 0.4 K/uL (0.0-0.8); MONO % 3.1 % (0.0-10.0); NRBC % 0.1 % (0.0-2.0); RED CELL DISTRIBUTION WIDTH 14.7 % (11.5-14.5); WHITE BLOOD COUNT 11.7 K/uL (4.8-10.8)
[2017-07-17 22:02] LABS: CHLORIDE 101 mmol/L (98-107)
[2017-07-17 22:03] LABS: POTASSIUM 4.8 mmol/L (3.6-5.2); SODIUM 136 mmol/L (132-148)
[2017-07-17 22:05] LABS: ALB/GLOB RATIO 1.3 (1.0-2.1); ALKALINE PHOSPHATASE 77 U/L (38-126); ALT/SGPT 23 U/L (9-52); AST/SGOT 35 U/L (14-36); BLOOD UREA NITROGEN 17 mg/dL (7-17); CARBON DIOXIDE 20 mmol/L (22-30); GFR AFRICAN-AMERICAN > 60; GLUCOSE,RANDOM 162 mg/dL (65-105); TOTAL PROTEIN 8.6 g/dL (6.3-8.3)
[2017-07-17 22:06] LABS: CALCIUM 9.8 mg/dl (8.6-10.4)
[2017-07-17] MEDS ORDERED: Iodixanol 320 MG/ML 100 ML BOTTLE IV ONE (22:34)
--- NOTE | 2017-07-17 23:47 | CT ---
EXAM: CT Abdomen and Pelvis With Intravenous Contrast EXAM DATE/TIME: 07/17/2017 9:42 PM CLINICAL HISTORY: 72 years old, female; Pain; Abdominal pain; Generalized; Additional info: Abd pain TECHNIQUE: Axial computed tomography images of the abdomen and pelvis with intravenous contrast. All CT scans at this facility use one or more dose reduction techniques, viz.: automated exposure control; ma/kV adjustment per patient size (including targeted exams where dose is matched to indication; i.e. head); or iterative reconstruction technique. Coronal and sagittal reformatted images were created and reviewed. CONTRAST: 100 mL of visipaque 320 administered intravenously. COMPARISON: Prior images are not available for review. Correlation is made with a report dated FINDINGS: Lower thorax: A the heart isn't enlarged. There is a small pericardial effusion. There is a hiatal hernia. There is atelectasis and scarring at the lung bases. ABDOMEN: Liver: There is a small hepatic cyst. Gallbladder and bile ducts: unremarkable Pancreas: Pancreas is atrophic. Spleen: Spleen is unremarkable. There is an accessory spleen in the left upper quadrant. Adrenals: unremarkable Kidneys and ureters: Right kidney is mildly atrophic. There is focal right renal scarring. There is a left renal cyst. There is less extensive left renal scarring.There is no pelvocaliectasis or ureterectasis. Stomach and bowel: Stomach is almost empty. Rotation is normal. Duodenum and proximal jejunum are normal in caliber. There is increasing distention in mid jejunum and mid small bowel. There are dilated loops in the midabdomen. There is focal caliber change at the level of the umbilicus, images 95-115. There is swirling of the mesentery consistent with volvulus. This may be associated with an abdominal wall adhesion, image 111 series 3 small bowel distal to the twist is decompressed. Terminal ileum is decompressed. Appendix is unremarkable.Colon is incompletely distended which limits evaluation. There is scattered diverticulosis Appendix: See stomach and bowel PELVIS: Bladder: unremarkable Reproductive: Unremarkable ABDOMEN and PELVIS: Intraperitoneal space: There is free fluid in the pelvis. There is no free air. Bones/joints: There are degenerative changes in the osseus structures. Soft tissues: there is a very small fat containing umbilical hernia. There is a small fat containing left inguinal hernia. Vasculature: There are vascular calcifications. Lymph nodes: There is no pathologic adenopathy. IMPRESSION: Mid small bowel obstruction most likely due to volvulus possibly at the level of an adhesion; no acute solid visceral abnormality Additional findings as described above.
[2017-07-18] MEDS ORDERED: Sodium Chloride 0.9% 1,000 ML IV SCH (02:15)
--- NOTE | 2017-07-18 02:18 | CP.PCM.CON ---
History of Present Illness - History of Present Illness History of Present Illness: GENERAL SURGERY CONSULT NOTE FOR DR. AREVALO 71yo F with PMHx of HTN, CKD, CHF, SBO and multiple abdominal surgeries who presents to the ED with abdominal pain. The pain began earlier this afternoon and was 10/10. Her pain was located in the epigastric/periumbilical area. She vomited/"spit up" about 3-4 times, non bloody. She had a small BM around 6pm today. She last passed flatus this morning. She denies SOB or CP. Of note, she was admitted here at [facility] for similar symptoms on 03/15/17 - 03/17/17 and 03/29/17 - 04/02/17. Both times she was admitted for SBO on CT and her symptoms resolved after conservative management. Patient states that this episode is different because this time she had a BM whereas before she did not. Currently, patient states that her pain is completely gone and she has no symptoms. Patient reports that her claims technician is Dr. Garay. Per the patient, Dr. Garay had recommended her to have a defibrillator a couple of years ago but she had refused at that time. PMHx: CHF, CKD, HTN, DM (controlled without medication), arthritis, colonic polyps, takotsubo syndrome, recurrent SBO Surgeries: hysterectomy, D&C, 2 ectopic pregnancies Allergies: Vasotec, HCTZ (pancreatitis) Social history: denies tobacco, etoh, illicit drug use Review of Systems - Review of Systems All systems: reviewed and no additional remarkable complaints except (as per HPI ) Past Patient History - Infectious Disease Hx of Infectious Diseases: None - Past Medical History & Family History Past Medical History?: Yes - Past Social History Smoking Status: Never Smoked - CARDIAC Hx Congestive Heart Failure: Yes Hx Hypertension: Yes Hx Pacemaker: No - PULMONARY Hx Respiratory Disorders: No - NEUROLOGICAL Hx Neurological Disorder: No - HEENT Hx HEENT Problems: No - RENAL Hx Chronic Kidney Disease: No - ENDOCRINE/METABOLIC Hx Endocrine Disorders: Yes Other/Comment: Borderline diabetes - HEMATOLOGICAL/ONCOLOGICAL Hx Blood Disorders: No - INTEGUMENTARY Hx Dermatological Problems: No - MUSCULOSKELETAL/RHEUMATOLOGICAL Hx Arthritis: Yes (HANDS; RIGHT ARM) - GASTROINTESTINAL Hx Diverticulitis: Yes Hx Pancreatitis: Yes - GENITOURINARY/GYNECOLOGICAL Hx Genitourinary Disorders: No - PSYCHIATRIC Hx Substance Use: No - SURGICAL HISTORY Hx Appendectomy: No Hx Carotid Endarterectomy: No Hx Cholecystectomy: No Hx Coronary Artery Bypass Graft: No Hx Coronary Stent: No Hx Tonsillectomy: No - ANESTHESIA Hx Anesthesia: Yes Hx Anesthesia Reactions: No Hx Malignant Hyperthermia: No Meds Allergies/Adverse Reactions: Allergies Allergy/AdvReac Type Severity Reaction Status Date / Time enalaprilat [From Vasotec] Allergy RASH Verified 03/29/17 03:37 hydrochlorothiazide Allergy RASH Verified 07/17/17 21:29 - Medications Medications: Current Medications Sodium Chloride (Sodium Chloride 0.9%) 1,000 mls @ 125 mls/hr IV .Q8H [facility] Morphine Sulfate (Morphine) 2 mg IVP Q4 PRN PRN Reason: Pain, moderate (4-7) Ondansetron HCl (Zofran Inj) 4 mg IVP Q4 PRN PRN Reason: Nausea/Vomiting Physical Exam - Constitutional Appears: Well, Non-toxic, No Acute Distress - Head Exam Head Exam: ATRAUMATIC, NORMAL INSPECTION - Eye Exam Eye Exam: EOMI, Normal appearance - Respiratory Exam Respiratory Exam: NORMAL BREATHING PATTERN. absent: Respiratory Distress - Cardiovascular Exam Cardiovascular Exam: +S1, +S2. absent: Tachycardia - GI/Abdominal Exam GI & Abdominal Exam: Soft. absent: Distended, Firm, Guarding, Rebound, Rigid, Tenderness (nontender on deep palpation) Additional comments: lower midline scar, well healed - Neurological Exam Neurological exam: Alert, CN II-XII Intact, Oriented x3 - Psychiatric Exam Psychiatric exam: Normal Affect, Normal Mood - Skin Skin Exam: Dry, Normal Color, Warm Results - Vital Signs Recent Vital Signs: Last Vital Signs Temp 97.6 F 07/18/17 01:10 Pulse 88 07/18/17 01:10 Resp 20 07/18/17 01:10 BP 156/82 H 07/18/17 01:10 Pulse Ox 98 07/18/17 01:10 - Labs Result Diagrams: 07/17/17 21:47 07/17/17 21:47 Labs: Laboratory Results - last 24 hr 07/17/17 07/17/17 07/17/17 21:47 21:47 22:00 WBC 11.7 H D RBC 4.72 Hgb 14.1 Hct 41.8 MCV 88.5 D MCH 29.8 MCHC 33.7 RDW 14.7 H Plt Count 228 MPV 9.4 Neut % (Auto) 81.0 H Lymph % (Auto) 15.5 L [place] % (Auto) 3.1 Eos % (Auto) 0.0 Baso % (Auto) 0.4 Neut # 9.5 H Lymph # 1.8 [place] # 0.4 Eos # 0.0 Baso # 0.0 Sodium 136 Potassium 4.8 Chloride 101 Carbon Dioxide 20 L Anion Gap 20 BUN 17 Creatinine 1.0 Est GFR ( Amer) > 60 Est GFR (Non-Af Amer) 55 Random Glucose 162 H Lactic Acid 1.7 Calcium 9.8 Total Bilirubin 1.0 AST 35 ALT 23 Alkaline Phosphatase 77 Troponin I 0.0300 Total Protein 8.6 H Albumin 4.8 Globulin 3.8 Albumin/Globulin Ratio 1.3 Lipase 47 Assessment & Plan - Assessment and Plan (Free Text) Assessment: 71yo F with PMHx of HTN, CKD, CHF, SBO and multiple abdominal surgeries who presented with abdominal pain and is found to have an SBO, possible volvulus on CT - Afebrile, VSS - Lactate WNL - CT: increasing distention in mid jejunum and mid small bowel, focal caliber change at level of umbilicus, swirling of mesentery consistent w/ volvulus, may be associated with an abdominal wall adhesion, small bowel distal to the twist is decompressed - NPO, bowel rest - IV Fluids - Morphine and Zofran PRN - Encourage ambulation - Will likely need OR today due to repeated visits for SBO - Needs cardiac clearance prior to OR - Discussed plan with Dr. Maggi Spear PGY-3
[2017-07-18] MEDS: Sodium Chloride 0.9% 1,000 ML IV SCH ×3 (03:41→19:49)
[2017-07-18 07:09] LABS: BASO % 0.3 % (0.0-2.0); EOS % 0.1 % (0.0-4.0); HEMATOCRIT 39.1 % (34.0-47.0); LYMPH # 2.1 K/uL (1.0-4.3); LYMPH % 23.6 % (20.0-40.0); MEAN CELL VOLUME 88.9 fL (81.0-99.0); MEAN CORPUSCULAR HEMOGLOBIN 29.8 pg (27.0-31.0); MEAN CORPUSCULAR HGB CONC 33.5 g/dL (33.0-37.0); MEAN PLATELET VOLUME 8.9 fL (7.2-11.7); MONO # 0.5 K/uL (0.0-0.8); RED CELL DISTRIBUTION WIDTH 14.5 % (11.5-14.5); WHITE BLOOD COUNT 8.7 K/uL (4.8-10.8)
[2017-07-18 07:26] LABS: CHLORIDE 104 mmol/L (98-107)
[2017-07-18 07:27] LABS: POTASSIUM 4.1 mmol/L (3.6-5.2); SODIUM 138 mmol/L (132-148)
[2017-07-18 07:29] LABS: BILIRUBIN,TOTAL 0.6 mg/dL (0.2-1.3); CARBON DIOXIDE 21 mmol/L (22-30); GFR AFRICAN-AMERICAN > 60
[2017-07-18 07:30] LABS: ALB/GLOB RATIO 1.1 (1.0-2.1); ALKALINE PHOSPHATASE 68 U/L (38-126); ALT/SGPT 31 U/L (9-52); AST/SGOT 21 U/L (14-36); BLOOD UREA NITROGEN 14 mg/dL (7-17); CALCIUM 9.1 mg/dl (8.6-10.4); GLUCOSE,RANDOM 105 mg/dL (65-105); TOTAL PROTEIN 7.5 g/dL (6.3-8.3)
--- NOTE | 2017-07-18 12:07 | CP.PCM.HP ---
History of Present Illness - History of Present Illness History of Present Illness: Ms. 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 She had negative cardiac cath and lately the negative stress test for ischemia. She had ejection fraction of about 25-30% on medical treatment doing well however she was hesitant and did not want the implantable defibrillator. No syncope and no palpitation. She had prior abdominal surgery and frequent admissions for abdominal pain and CT scan that shows small bowel obstruction. The latest was 2 weeks ago at [facility], it was treated conservatively with adequate response. Was seen twice in the office since then for further observation without pain and she was tolerating food. At this time she reported again to the emergency department with similar pain, the CAT scan was again with small bowel obstruction. No shortness of breath and no chest pain. She had history of type 2 diabetes on diet and history of hypertension on medical treatment.at this time she was admitted with abdominal pain, vomiting, and the CAT scan showed in addition to obstruction a volvulus, planned to have exploration surgery. Present on Admission - Present on Admission Any Indicators Present on Admission: No Review of Systems - Review of Systems Systems not reviewed;Unavailable: Unstable Vital Signs - Constitutional Constitutional: Anorexia, Weakness - EENT Eyes: absent: Discharge Ears: absent: Ear Discharge, Dizziness Nose/Mouth/Throat: absent: Epistaxis - Cardiovascular Cardiovascular: absent: Acrocyanosis, Chest Pain, Diaphoresis, Palpitations, Syncope - Respiratory Respiratory: absent: Cough, Dyspnea, Hemoptysis - Gastrointestinal Gastrointestinal: Abdominal Pain, Cramping, Vomiting. absent: Hematemesis, Melena - Reproductive: Female Reproductive:Female: Post Menopausal Past Patient History - Infectious Disease Hx of Infectious Diseases: None - Past Medical History & Family History Past Medical History?: Yes - Past Social History Smoking Status: Never Smoked - CARDIAC Hx Congestive Heart Failure: Yes Hx Hypertension: Yes Hx Pacemaker: No - PULMONARY Hx Respiratory Disorders: No - NEUROLOGICAL Hx Neurological Disorder: No - HEENT Hx HEENT Problems: No - RENAL Hx Chronic Kidney Disease: No - ENDOCRINE/METABOLIC Hx Endocrine Disorders: Yes Other/Comment: Borderline diabetes - HEMATOLOGICAL/ONCOLOGICAL Hx Blood Disorders: No - INTEGUMENTARY Hx Dermatological Problems: No - MUSCULOSKELETAL/RHEUMATOLOGICAL Hx Arthritis: Yes (HANDS; RIGHT ARM) - GASTROINTESTINAL Hx Diverticulitis: Yes Hx Pancreatitis: Yes - GENITOURINARY/GYNECOLOGICAL Hx Genitourinary Disorders: No - PSYCHIATRIC Hx Substance Use: No - SURGICAL HISTORY Hx Appendectomy: No Hx Carotid Endarterectomy: No Hx Cholecystectomy: No Hx Coronary Artery Bypass Graft: No Hx Coronary Stent: No Hx Tonsillectomy: No - ANESTHESIA Hx Anesthesia: Yes Hx Anesthesia Reactions: No Hx Malignant Hyperthermia: No Meds Allergies/Adverse Reactions: Allergies Allergy/AdvReac Type Severity Reaction Status Date / Time enalaprilat [From Vasotec] Allergy RASH Verified 03/29/17 03:37 hydrochlorothiazide Allergy RASH Verified 07/17/17 21:29 Physical Exam - Constitutional Appears: Non-toxic - Head Exam Head Exam: ATRAUMATIC - Eye Exam Eye Exam: EOMI - ENT Exam ENT Exam: Mucous Membranes Moist - Neck Exam Neck exam: Negative for: Lymphadenopathy, Thyromegaly - Respiratory Exam Respiratory Exam: Clear to Auscultation Bilateral, Rales. absent: Rhonchi, Wheezes - Cardiovascular Exam Cardiovascular Exam: REGULAR RHYTHM, Systolic Murmur - GI/Abdominal Exam GI & Abdominal Exam: Hyperactive Bowel Sounds, Soft, Tenderness. absent: Organomegaly - Rectal Exam Rectal Exam: Deferred - Extremities Exam Extremities exam: Positive for: normal capillary refill. Negative for: calf tenderness - Neurological Exam Neurological exam: Alert, Oriented x3 - Psychiatric Exam Psychiatric exam: Anxious - Skin Skin Exam: Dry Results - Vital Signs Recent Vital Signs: Last Vital Signs Temp 98.6 F 07/18/17 07:05 Pulse 84 07/18/17 07:05 Resp 18 07/18/17 07:05 BP 132/72 07/18/17 07:05 Pulse Ox 94 L 07/18/17 07:05 - Labs Result Diagrams: 07/18/17 07:01 07/18/17 07:01 Labs: Laboratory Results - last 24 hr 07/17/17 07/17/17 07/17/17 21:47 21:47 22:00 WBC 11.7 H D RBC 4.72 Hgb 14.1 Hct 41.8 MCV 88.5 D MCH 29.8 MCHC 33.7 RDW 14.7 H Plt Count 228 MPV 9.4 Neut % (Auto) 81.0 H Lymph % (Auto) 15.5 L [place] % (Auto) 3.1 Eos % (Auto) 0.0 Baso % (Auto) 0.4 Neut # 9.5 H Lymph # 1.8 [place] # 0.4 Eos # 0.0 Baso # 0.0 Sodium 136 Potassium 4.8 Chloride 101 Carbon Dioxide 20 L Anion Gap 20 BUN 17 Creatinine 1.0 Est GFR ( Amer) > 60 Est GFR (Non-Af Amer) 55 Random Glucose 162 H Lactic Acid 1.7 Calcium 9.8 Total Bilirubin 1.0 AST 35 ALT 23 Alkaline Phosphatase 77 Troponin I 0.0300 Total Protein 8.6 H Albumin 4.8 Globulin 3.8 Albumin/Globulin Ratio 1.3 Lipase 47 07/18/17 07/18/17 07:01 07:01 WBC 8.7 RBC 4.39 Hgb 13.1 Hct 39.1 MCV 88.9 MCH 29.8 MCHC 33.5 RDW 14.5 Plt Count 230 MPV 8.9 Neut % (Auto) 70.0 Lymph % (Auto) 23.6 [place] % (Auto) 6.0 Eos % (Auto) 0.1 Baso % (Auto) 0.3 Neut # 6.1 Lymph # 2.1 [place] # 0.5 Eos # 0.0 Baso # 0.0 Sodium 138 Potassium 4.1 Chloride 104 Carbon Dioxide 21 L Anion Gap 17 BUN 14 Creatinine 1.0 Est GFR ( Amer) > 60 Est GFR (Non-Af Amer) 55 Random Glucose 105 Lactic Acid Calcium 9.1 Total Bilirubin 0.6 AST 21 ALT 31 Alkaline Phosphatase 68 Troponin I Total Protein 7.5 Albumin 4.0 Globulin 3.5 Albumin/Globulin Ratio 1.1 Lipase Assessment & Plan (1) Volvulus of intestine Status: Acute Comment: although increased, acceptable risk for cardiac complication from surgery (2) Small bowel obstruction Status: Acute Comment: follow-up with surgery (3) CHF (congestive heart failure), NYHA class II Status: Chronic Comment: stable, hemodynamically. On medical treatment, with no ischemia (4) Diabetes 1.5, managed as type 2 Status: Chronic (5) Hypertension Status: Chronic Decision To Admit - Pt Status Changed To: Hospital Disposition Of: Inpatient - Admit Certification Admit to Inpatient:: After my assessment, the patient will require hospitalization for at least two midnights. This is because of the severity of symptoms shown, intensity of services needed, and/or the medical risk in this patient being treated as an outpatient. - InPatient: Physician Admission Certification:: yes - . Bed Request Type: Regular
[2017-07-18] MEDS ORDERED: Rocuronium 10 mg/ml (5 ml) ONE (16:41)
[2017-07-18] MEDS ORDERED: Etomidate 20 mg/10ml Inj IV ONE (16:41)
[2017-07-18] MEDS ORDERED: Phenylephrine 10 mg/ml Inj ONE (16:49)
[2017-07-18] MEDS ORDERED: Lactated Ringer's 1,000 ML IV ONE (16:50)
[2017-07-18] MEDS ORDERED: ceFAZolin IV 2 gm in Dextrose 0 GM/0 ML BAG IVPB ONE (16:58)
[2017-07-18] MEDS ORDERED: metroNIDAZOLE IV 500 mg/100 ml 0 MG/0 ML BAG ONE (16:58)
[2017-07-18] MEDS ORDERED: Amiodarone 150mg/3 ml vial ONE (17:10)
--- NOTE | 2017-07-18 18:33 | CP.PCM.PN ---
Subjective - Date & Time of Evaluation Date of Evaluation: 07/18/17 Time of Evaluation: 18:30 - Subjective Subjective: Surgery: Dr. Tay Pt taken to OR for ex-lap. While preparing pt on OR table, she became SOB and developed wide complex tachycardia which was managed by anesthesia. Case was cancelled and pt was transferred to ICU. Surgery on hold, pt needs to be re-evaluated by cardio alison w. attending Tim PGY3 Objective - Vital Signs/Intake and Output Vital Signs (last 24 hours): Temp Pulse Resp BP Pulse Ox 98.6 F 84 18 145/78 94 L 07/18/17 07:05 07/18/17 07:05 07/18/17 07:05 07/18/17 13:21 07/18/17 07:05 Intake and Output: 07/18/17 07/18/17 06:59 18:59 Intake Total 375 Balance 375 - Medications Medications: Current Medications Furosemide (Lasix) 40 mg PO DAILY [facility] Last Admin: 07/18/17 13:21 Dose: 40 mg Sodium Chloride (Sodium Chloride 0.9%) 1,000 mls @ 75 mls/hr IV .[id number] [facility] Last Admin: 07/18/17 18:29 Dose: 75 mls/hr Losartan Potassium (Cozaar) 100 mg PO DAILY [facility] Last Admin: 07/18/17 13:21 Dose: 100 mg Metoprolol Succinate (Toprol Xl) 100 mg PO DAILY [facility] Morphine Sulfate (Morphine) 2 mg IVP Q4 PRN PRN Reason: Pain, moderate (4-7) Last Admin: 07/18/17 13:16 Dose: 2 mg Ondansetron HCl (Zofran Inj) 4 mg IVP Q4 PRN PRN Reason: Nausea/Vomiting Last Admin: 07/18/17 05:56 Dose: 4 mg Pantoprazole Sodium (Protonix Ec Tab) 40 mg PO DAILY [facility] - Labs Labs: 07/18/17 07:01 07/18/17 07:01
--- NOTE | 2017-07-18 19:16 | CP.PCM.CON ---
History of Present Illness - History of Present Illness History of Present Illness: CRITICAL CARE CONSULT NOTE Patient seen and examined at approximately 19:00 pm on 07/18 in ICU Bed 9. Patient is a full code status at this time. She does not have a designated power of family law attorney at this time; however so her daughter, Saundra Velez is the emergency contact lens lathe operator. She can be reached at [phone]. CC: shortness of breath HPI: 72 year old female with past medical history significant for HTN, non- ischemic dilated cardiomyopathy, Diabetes Mellitus, recurrent SBO, diverticulitis presents from PACU after patient apparently developed wide complex tachycardia while on the OR table just minutes before patient was to be intubated. Patient states that she was not sure what was going on; however she remembers feeling increasingly short of breath. Per the surgery note, patient had an arrythmia, however it is unclear what interventions were taken at this point to stabilize the patient. Patient was to have an ex-lap procedure for recurrent bouts of abdominal pain secondarily due to small bowel obstruction. Per Ruby Engineer's note, patient had recent stress test and catheterization, both of which were negative. It was recommended that patient have a defibrillation but she refused at the time. Patient's tool carrier notified by ICU charge nurse of the events that occurred earlier today. Patient at this point feels nauseous. She denies chest pain, palpitations, shortness of breath, subjective fevers or chills, headaches or diarrhea at this time. PMHx- as noted above. PSHx- Total Hysterectomy in the with dysfunctional uterine bleeding secondarily due to recurrent fibroids, Tubal ligation Fam Hx- Mom had Throat cancer which was diagnosed at the age of 70; Sister had Stomach cancer which was diagnosed at age of 40 Social Hx- denies smoking and illicit drug use; admits to drinking alcohol socially 15 years prior Meds- Toprol 100 mg daily, Nexium 40 mg daily, water Pill Allergies- Vasotec and HCTZ cause an adverse reaction that patient couldn't explain. Ruby Engineer: Dr. Garay Review of Systems - Constitutional Constitutional: absent: Chills, Headache - EENT Eyes: absent: Blurred Vision, Change in Vision Ears: absent: Ear Discharge, Ear Pain Nose/Mouth/Throat: absent: Nasal Congestion, Dry Mouth - Cardiovascular Cardiovascular: Dyspnea. absent: Chest Pain, Chest Pain at Rest - Gastrointestinal Gastrointestinal: Nausea. absent: Vomiting - Genitourinary Genitourinary: absent: Change in Urinary Stream, Difficulty Urinating - Neurological Neurological: As Per HPI. absent: Dizziness, Numbness - Psychiatric Psychiatric: As Per HPI - Endocrine Endocrine: As Per HPI - Hematologic/Lymphatic Hematologic: As Per HPI Past Patient History - Infectious Disease Hx of Infectious Diseases: None - Past Medical History & Family History Past Medical History?: Yes - Past Social History Smoking Status: Never Smoked Alcohol: None Drugs: Denies - CARDIAC Hx Congestive Heart Failure: Yes Hx Hypertension: Yes Hx Pacemaker: No - PULMONARY Hx Respiratory Disorders: No - NEUROLOGICAL Hx Neurological Disorder: No - HEENT Hx HEENT Problems: No - RENAL Hx Chronic Kidney Disease: No - ENDOCRINE/METABOLIC Hx Endocrine Disorders: Yes Other/Comment: Borderline diabetes - HEMATOLOGICAL/ONCOLOGICAL Hx Blood Disorders: No - INTEGUMENTARY Hx Dermatological Problems: No - MUSCULOSKELETAL/RHEUMATOLOGICAL Hx Arthritis: Yes (HANDS; RIGHT ARM) - GASTROINTESTINAL Hx Diverticulitis: Yes Hx Pancreatitis: Yes - GENITOURINARY/GYNECOLOGICAL Hx Genitourinary Disorders: No - PSYCHIATRIC Hx Substance Use: No - SURGICAL HISTORY Hx Appendectomy: No Hx Carotid Endarterectomy: No Hx Cholecystectomy: No Hx Coronary Artery Bypass Graft: No Hx Coronary Stent: No Hx Tonsillectomy: No - ANESTHESIA Hx Anesthesia: Yes Hx Anesthesia Reactions: No Hx Malignant Hyperthermia: No Meds Allergies/Adverse Reactions: Allergies Allergy/AdvReac Type Severity Reaction Status Date / Time enalaprilat [From Vasotec] Allergy RASH Verified 03/29/17 03:37 hydrochlorothiazide Allergy RASH Verified 07/17/17 21:29 - Medications Medications: Current Medications Furosemide (Lasix) 40 mg PO DAILY [facility] Last Admin: 07/18/17 13:21 Dose: 40 mg Sodium Chloride (Sodium Chloride 0.9%) 1,000 mls @ 75 mls/hr IV .[id number] [facility] Last Admin: 07/18/17 18:29 Dose: 75 mls/hr Losartan Potassium (Cozaar) 100 mg PO DAILY [facility] Last Admin: 07/18/17 13:21 Dose: 100 mg Metoprolol Succinate (Toprol Xl) 100 mg PO DAILY [facility] Morphine Sulfate (Morphine) 2 mg IVP Q4 PRN PRN Reason: Pain, moderate (4-7) Last Admin: 07/18/17 13:16 Dose: 2 mg Ondansetron HCl (Zofran Inj) 4 mg IVP Q4 PRN PRN Reason: Nausea/Vomiting Last Admin: 07/18/17 05:56 Dose: 4 mg Pantoprazole Sodium (Protonix Ec Tab) 40 mg PO DAILY [facility] Physical Exam - Constitutional Appears: Non-toxic, No Acute Distress Additional comments: large body habitus - Head Exam Head Exam: ATRAUMATIC, NORMAL INSPECTION, NORMOCEPHALIC - Eye Exam Eye Exam: EOMI, Normal appearance, PERRL Pupil Exam: NORMAL ACCOMODATION, PERRL - ENT Exam ENT Exam: Mucous Membranes Moist - Neck Exam Neck exam: Positive for: Full Rom. Negative for: Tenderness Additional comments: no JVD - Respiratory Exam Respiratory Exam: NORMAL BREATHING PATTERN. absent: Wheezes - Cardiovascular Exam Cardiovascular Exam: +S1, +S2 Additional comments: heart sounds difficult to auscultate - GI/Abdominal Exam GI & Abdominal Exam: Normal Bowel Sounds, Soft. absent: Firm, Guarding, Rigid Additional comments: midline incisional healed scar from prior operation noted - Extremities Exam Extremities exam: Positive for: full ROM, normal capillary refill, pedal pulses present. Negative for: calf tenderness, pedal edema, tenderness - Back Exam Back exam: FULL ROM, NORMAL INSPECTION - Neurological Exam Neurological exam: Alert, CN II-XII Intact, Oriented x3 - Psychiatric Exam Psychiatric exam: Normal Affect, Normal Mood - Skin Skin Exam: Dry, Intact, Normal Color, Warm Results - Vital Signs Recent Vital Signs: Last Vital Signs Temp 98.6 F 07/18/17 07:05 Pulse 84 07/18/17 07:05 Resp 18 07/18/17 07:05 BP 145/78 07/18/17 13:21 Pulse Ox 94 L 07/18/17 07:05 - Labs Result Diagrams: 07/18/17 07:01 07/18/17 07:01 Labs: Laboratory Results - last 24 hr 07/17/17 07/17/17 07/17/17 21:47 21:47 22:00 WBC 11.7 H D RBC 4.72 Hgb 14.1 Hct 41.8 MCV 88.5 D MCH 29.8 MCHC 33.7 RDW 14.7 H Plt Count 228 MPV 9.4 Neut % (Auto) 81.0 H Lymph % (Auto) 15.5 L [place] % (Auto) 3.1 Eos % (Auto) 0.0 Baso % (Auto) 0.4 Neut # 9.5 H Lymph # 1.8 [place] # 0.4 Eos # 0.0 Baso # 0.0 Sodium 136 Potassium 4.8 Chloride 101 Carbon Dioxide 20 L Anion Gap 20 BUN 17 Creatinine 1.0 Est GFR ( Amer) > 60 Est GFR (Non-Af Amer) 55 Random Glucose 162 H Lactic Acid 1.7 Calcium 9.8 Total Bilirubin 1.0 AST 35 ALT 23 Alkaline Phosphatase 77 Troponin I 0.0300 Total Protein 8.6 H Albumin 4.8 Globulin 3.8 Albumin/Globulin Ratio 1.3 Lipase 47 07/18/17 07/18/17 07:01 07:01 WBC 8.7 RBC 4.39 Hgb 13.1 Hct 39.1 MCV 88.9 MCH 29.8 MCHC 33.5 RDW 14.5 Plt Count 230 MPV 8.9 Neut % (Auto) 70.0 Lymph % (Auto) 23.6 [place] % (Auto) 6.0 Eos % (Auto) 0.1 Baso % (Auto) 0.3 Neut # 6.1 Lymph # 2.1 [place] # 0.5 Eos # 0.0 Baso # 0.0 Sodium 138 Potassium 4.1 Chloride 104 Carbon Dioxide 21 L Anion Gap 17 BUN 14 Creatinine 1.0 Est GFR ( Amer) > 60 Est GFR (Non-Af Amer) 55 Random Glucose 105 Lactic Acid Calcium 9.1 Total Bilirubin 0.6 AST 21 ALT 31 Alkaline Phosphatase 68 Troponin I Total Protein 7.5 Albumin 4.0 Globulin 3.5 Albumin/Globulin Ratio 1.1 Lipase Assessment & Plan - Assessment and Plan (Free Text) Assessment: 72 year old female with past medical history significant for HTN, non-ischemic dilated cardiomyopathy, recurrent SBO, diverticulitis presents from PACU after patient apparently developed wide complex tachycardia while on the OR table. Patient was to have ex-lap procedure today which ended up being cancelled. Plan: Neuro: Awake, alert, oriented and responsive Cardio: Patient has had recent stress and cath which were negative Per surgery note, patient had wide complex tachycardia on the OR table just prior to intubation which was managed by the anesthesia team. Known history of dilated cardiomyopathy- Patient would benefit from defibrillator however declined in the past as per Ruby Engineer's note Lasix 40 mg PO daily F/U with Cardiology (Dr. Garay) recommendations HTN- On Cozaar 100 mg daily and Metoprolol 100 mg daily Echo from 2016 remarked on EF of 15-20% with severely impaired systolic dysfunction F/U Echo GI: CT of Abdomen and Pelvis- - CT: increasing distention in mid jejunum and mid small bowel, focal caliber change at level of umbilicus, swirling of mesentery consistent w/ volvulus, may be associated with an abdominal wall adhesion, small bowel distal to the twist is decompressed Management per Surgery. Will hold off on surgical procedure until patient is stable and re-assessed by Cardiology Zofran PRN Endo: Accuchecks F/U A1c ISS - Low dose Patient does not seem to be aware of history of diabetes F/U thyroid studies Renal: Monitor IV fluids Monitor electrolytes and replete as needed on n/s decreased to 20 cc per hour Prophylactic measure: SCDs PPI 40 mg PO daily Heparin 5000 SC Q12 Continue to monitor
[2017-07-18] MEDS: (Novolog) Insulin Aspart, Recombinant 100 u/ml 10 ml vial SC SCH (22:00)
[2017-07-19 06:47] LABS: BASO % 0.5 % (0.0-2.0); EOS # 0.1 K/uL (0.0-0.7); EOS % 0.8 % (0.0-4.0); HEMATOCRIT 36.9 % (34.0-47.0); LYMPH # 2.4 K/uL (1.0-4.3); LYMPH % 30.8 % (20.0-40.0); MEAN CELL VOLUME 89.3 fL (81.0-99.0); MEAN CORPUSCULAR HEMOGLOBIN 30.2 pg (27.0-31.0); MEAN CORPUSCULAR HGB CONC 33.8 g/dL (33.0-37.0); MEAN PLATELET VOLUME 8.8 fL (7.2-11.7); MONO # 0.5 K/uL (0.0-0.8); MONO % 6.3 % (0.0-10.0); RED CELL DISTRIBUTION WIDTH 14.5 % (11.5-14.5); WHITE BLOOD COUNT 7.8 K/uL (4.8-10.8)
[2017-07-19 07:38] LABS: POTASSIUM 3.7 mmol/L (3.6-5.2)
[2017-07-19 07:40] LABS: ALB/GLOB RATIO 1.1 (1.0-2.1); BILIRUBIN,TOTAL 0.6 mg/dL (0.2-1.3); TOTAL PROTEIN 6.8 g/dL (6.3-8.3)
[2017-07-19 07:41] LABS: CALCIUM 8.6 mg/dl (8.6-10.4); MAGNESIUM 1.6 mg/dL (1.6-2.3); PHOSPHOROUS 2.8 mg/dL (2.5-4.5)
[2017-07-19] MEDS: (Novolog) Insulin Aspart, Recombinant 100 u/ml 10 ml vial SC SCH ×4 (07:44→22:18)
[2017-07-19 08:07] LABS: THYROID STIMULATING HORMONE 1.82 mIU/L (0.46-4.68)
[2017-07-19] MEDS: Pantoprazole 40 mg EC Tab PO SCH (10:53)
[2017-07-19] MEDS: Metoprolol Succinate 100 mg XL Tab PO SCH (10:54)
--- NOTE | 2017-07-19 11:32 | CP.CCUPN ---
CCU Subjective - Physician Review Subjective (Free Text): Patient was seen and examined at bedside. Patient reports that she is doing well CCU Objective - Vital Signs / Intake & Output Vital Signs (Last 4 hours): Vital Signs Temp Pulse Resp BP Pulse Ox 07/19/17 11:00 82 18 96 07/19/17 10:53 132/65 07/19/17 10:26 79 27 H 132/65 92 L 07/19/17 10:00 76 18 96 07/19/17 09:26 77 19 120/72 94 L 07/19/17 09:00 77 26 H 92 L 07/19/17 08:58 76 17 132/72 94 L 07/19/17 08:00 98.3 F 76 25 H 95 Intake and Output (Last 8hrs): Intake & Output 07/18/17 07/19/17 07/19/17 22:59 06:59 14:59 Intake Total 250 160 300 Output Total 300 1050 0 Balance -50 -890 300 Weight 220 lb 0.341 oz Intake: Intake, IV Amount 250 160 100 Right Forearm 250 160 100 Oral 0 0 200 Output: Urine 300 1050 0 Urine, Voided 300 1050 0 Stool 0 0 0 Other: # Voids Urine, Voided 1 1 # Bowel Movements 0 - Medications Active Medications: Active Medications Generic Name Dose Route Start Last Admin Trade Name Bertq PRN Reason Stop Dose Admin Furosemide 40 mg 07/18/17 12:15 07/19/17 10:53 Lasix PO 40 mg DAILY JEANCARLOS Administration Heparin Sodium (Porcine) 5,000 units 07/18/17 22:00 07/19/17 11:02 Heparin SC Not Given Q12 JEANCARLOS Sodium Chloride 1,000 mls @ 20 mls/hr 07/18/17 19:30 07/18/17 19:49 Sodium Chloride 0.9% IV 20 mls/hr .Q24H JEANCARLOS Administration Insulin Aspart 0 unit 07/18/17 22:00 07/19/17 07:44 Novolog SC Not Given ACHS JEANCARLOS Protocol Losartan Potassium 100 mg 07/18/17 12:15 07/19/17 10:54 Cozaar PO 100 mg DAILY [facility]ARL[facility] Administration Metoprolol Succinate 100 mg 07/19/17 10:00 07/19/17 10:54 Toprol Xl PO 100 mg DAILY JEANCARLOS Administration Morphine Sulfate 2 mg 07/18/17 02:01 07/18/17 22:26 Morphine IVP 2 mg Q4 PRN Administration Pain, moderate (4-7) Ondansetron HCl 4 mg 07/18/17 02:00 07/18/17 05:56 Zofran Inj IVP 4 mg Q4 PRN Administration Nausea/Vomiting Pantoprazole Sodium 40 mg 07/19/17 10:00 07/19/17 10:53 Protonix Ec Tab PO 40 mg DAILY JEANCARLOS Administration - Patient Studies Lab Studies: Microbiology Studies 07/17/17 21:41 S.aureus & Coag-Neg Staph PNA FISH - Preliminary Blood Blood Culture - Preliminary Gram Positive Cocci Gram Stain - Final 07/17/17 21:41 Blood Culture - Preliminary Blood NO GROWTH AFTER 24 HOURS Lab Studies 07/19/17 07/19/17 07/19/17 Range/Units 07:16 06:46 06:44 WBC 7.8 (4.8-10.8) K/uL RBC 4.13 (3.80-5.20) Mil/uL Hgb 12.5 (11.0-16.0) g/dL Hct 36.9 (34.0-47.0) % MCV 89.3 (81.0-99.0) fL MCH 30.2 (27.0-31.0) pg MCHC 33.8 (33.0-37.0) g/dL RDW 14.5 (11.5-14.5) % Plt Count 219 (130-400) K/uL MPV 8.8 (7.2-11.7) fL Neut % (Auto) 61.6 (50.0-75.0) % Lymph % (Auto) 30.8 (20.0-40.0) % Forrest % (Auto) 6.3 (0.0-10.0) % Eos % (Auto) 0.8 (0.0-4.0) % Baso % (Auto) 0.5 (0.0-2.0) % Neut # 4.8 (1.8-7.0) K/uL Lymph # 2.4 (1.0-4.3) K/uL Forrest # 0.5 (0.0-0.8) K/uL Eos # 0.1 (0.0-0.7) K/uL Baso # 0.0 (0.0-0.2) K/uL APTT 29 (21-34) SECONDS Sodium (132-148) mmol/L Potassium (3.6-5.2) mmol/L Chloride (98-107) mmol/L Carbon Dioxide (22-30) mmol/L Anion Gap (10-20) BUN (7-17) mg/dL Creatinine (0.7-1.2) mg/dL Est GFR ( Amer) Est GFR (Non-Af Amer) POC Glucose (mg/dL) 72 (65-110) mg/dL Random Glucose (65-105) mg/dL Hemoglobin A1c (4.2-6.5) % Calcium (8.6-10.4) mg/dl Phosphorus (2.5-4.5) mg/dL Magnesium (1.6-2.3) mg/dL Total Bilirubin (0.2-1.3) mg/dL AST (14-36) U/L ALT (9-52) U/L Alkaline Phosphatase (38-126) U/L Total Protein (6.3-8.3) g/dL Albumin (3.5-5.0) g/dL Globulin (2.2-3.9) gm/dL Albumin/Globulin Ratio (1.0-2.1) Triglycerides (0-149) mg/dL Cholesterol (0-199) mg/dL LDL Cholesterol Direct (0-129) mg/dL HDL Cholesterol (30-70) mg/dL Free T4 (0.78-2.19) ng/dL TSH 3rd Generation (0.46-4.68) mIU/L 07/19/17 07/19/17 07/19/17 Range/Units 06:44 06:44 06:44 WBC (4.8-10.8) K/uL RBC (3.80-5.20) Mil/uL Hgb (11.0-16.0) g/dL Hct (34.0-47.0) % MCV (81.0-99.0) fL MCH (27.0-31.0) pg MCHC (33.0-37.0) g/dL RDW (11.5-14.5) % Plt Count (130-400) K/uL MPV (7.2-11.7) fL Neut % (Auto) (50.0-75.0) % Lymph % (Auto) (20.0-40.0) % Forrest % (Auto) (0.0-10.0) % Eos % (Auto) (0.0-4.0) % Baso % (Auto) (0.0-2.0) % Neut # (1.8-7.0) K/uL Lymph # (1.0-4.3) K/uL Forrest # (0.0-0.8) K/uL Eos # (0.0-0.7) K/uL Baso # (0.0-0.2) K/uL APTT (21-34) SECONDS Sodium 139 (132-148) mmol/L Potassium 3.7 (3.6-5.2) mmol/L Chloride 107 (98-107) mmol/L Carbon Dioxide 21 L (22-30) mmol/L Anion Gap 15 (10-20) BUN 13 (7-17) mg/dL Creatinine 1.1 (0.7-1.2) mg/dL Est GFR ( Amer) 59 Est GFR (Non-Af Amer) 49 POC Glucose (mg/dL) (65-110) mg/dL Random Glucose 73 (65-105) mg/dL Hemoglobin A1c 6.3 (4.2-6.5) % Calcium 8.6 (8.6-10.4) mg/dl Phosphorus 2.8 (2.5-4.5) mg/dL Magnesium 1.6 (1.6-2.3) mg/dL Total Bilirubin 0.6 (0.2-1.3) mg/dL AST 21 (14-36) U/L ALT 27 (9-52) U/L Alkaline Phosphatase 59 (38-126) U/L Total Protein 6.8 (6.3-8.3) g/dL Albumin 3.6 (3.5-5.0) g/dL Globulin 3.2 (2.2-3.9) gm/dL Albumin/Globulin Ratio 1.1 (1.0-2.1) Triglycerides 47 (0-149) mg/dL Cholesterol 128 (0-199) mg/dL LDL Cholesterol Direct 54 (0-129) mg/dL HDL Cholesterol 61 (30-70) mg/dL Free T4 1.35 (0.78-2.19) ng/dL TSH 3rd Generation 1.82 (0.46-4.68) mIU/L 07/18/17 Range/Units 22:40 WBC (4.8-10.8) K/uL RBC (3.80-5.20) Mil/uL Hgb (11.0-16.0) g/dL Hct (34.0-47.0) % MCV (81.0-99.0) fL MCH (27.0-31.0) pg MCHC (33.0-37.0) g/dL RDW (11.5-14.5) % Plt Count (130-400) K/uL MPV (7.2-11.7) fL Neut % (Auto) (50.0-75.0) % Lymph % (Auto) (20.0-40.0) % Forrest % (Auto) (0.0-10.0) % Eos % (Auto) (0.0-4.0) % Baso % (Auto) (0.0-2.0) % Neut # (1.8-7.0) K/uL Lymph # (1.0-4.3) K/uL Forrest # (0.0-0.8) K/uL Eos # (0.0-0.7) K/uL Baso # (0.0-0.2) K/uL APTT (21-34) SECONDS Sodium (132-148) mmol/L Potassium (3.6-5.2) mmol/L Chloride (98-107) mmol/L Carbon Dioxide (22-30) mmol/L Anion Gap (10-20) BUN (7-17) mg/dL Creatinine (0.7-1.2) mg/dL Est GFR ( Amer) Est GFR (Non-Af Amer) POC Glucose (mg/dL) 88 (65-110) mg/dL Random Glucose (65-105) mg/dL Hemoglobin A1c (4.2-6.5) % Calcium (8.6-10.4) mg/dl Phosphorus (2.5-4.5) mg/dL Magnesium (1.6-2.3) mg/dL Total Bilirubin (0.2-1.3) mg/dL AST (14-36) U/L ALT (9-52) U/L Alkaline Phosphatase (38-126) U/L Total Protein (6.3-8.3) g/dL Albumin (3.5-5.0) g/dL Globulin (2.2-3.9) gm/dL Albumin/Globulin Ratio (1.0-2.1) Triglycerides (0-149) mg/dL Cholesterol (0-199) mg/dL LDL Cholesterol Direct (0-129) mg/dL HDL Cholesterol (30-70) mg/dL Free T4 (0.78-2.19) ng/dL TSH 3rd Generation (0.46-4.68) mIU/L Laboratory Results - last 24 hr 07/18/17 07/19/17 07/19/17 22:40 06:44 06:44 WBC RBC Hgb Hct MCV MCH MCHC RDW Plt Count MPV Neut % (Auto) Lymph % (Auto) Forrest % (Auto) Eos % (Auto) Baso % (Auto) Neut # Lymph # Forrest # Eos # Baso # APTT Sodium 139 Potassium 3.7 Chloride 107 Carbon Dioxide 21 L Anion Gap 15 BUN 13 Creatinine 1.1 Est GFR ( Amer) 59 Est GFR (Non-Af Amer) 49 POC Glucose (mg/dL) 88 Random Glucose 73 Hemoglobin A1c 6.3 Calcium 8.6 Phosphorus 2.8 Magnesium 1.6 Total Bilirubin 0.6 AST 21 ALT 27 Alkaline Phosphatase 59 Total Protein 6.8 Albumin 3.6 Globulin 3.2 Albumin/Globulin Ratio 1.1 Triglycerides 47 Cholesterol 128 LDL Cholesterol Direct 54 HDL Cholesterol 61 Free T4 TSH 3rd Generation 1.82 07/19/17 07/19/17 07/19/17 06:44 06:44 06:46 WBC 7.8 RBC 4.13 Hgb 12.5 Hct 36.9 MCV 89.3 MCH 30.2 MCHC 33.8 RDW 14.5 Plt Count 219 MPV 8.8 Neut % (Auto) 61.6 Lymph % (Auto) 30.8 Forrest % (Auto) 6.3 Eos % (Auto) 0.8 Baso % (Auto) 0.5 Neut # 4.8 Lymph # 2.4 Forrest # 0.5 Eos # 0.1 Baso # 0.0 APTT 29 Sodium Potassium Chloride Carbon Dioxide Anion Gap BUN Creatinine Est GFR ( Amer) Est GFR (Non-Af Amer) POC Glucose (mg/dL) Random Glucose Hemoglobin A1c Calcium Phosphorus Magnesium Total Bilirubin AST ALT Alkaline Phosphatase Total Protein Albumin Globulin Albumin/Globulin Ratio Triglycerides Cholesterol LDL Cholesterol Direct HDL Cholesterol Free T4 1.35 TSH 3rd Generation 07/19/17 07:16 WBC RBC Hgb Hct MCV MCH MCHC RDW Plt Count MPV Neut % (Auto) Lymph % (Auto) Forrest % (Auto) Eos % (Auto) Baso % (Auto) Neut # Lymph # Forrest # Eos # Baso # APTT Sodium Potassium Chloride Carbon Dioxide Anion Gap BUN Creatinine Est GFR ( Amer) Est GFR (Non-Af Amer) POC Glucose (mg/dL) 72 Random Glucose Hemoglobin A1c Calcium Phosphorus Magnesium Total Bilirubin AST ALT Alkaline Phosphatase Total Protein Albumin Globulin Albumin/Globulin Ratio Triglycerides Cholesterol LDL Cholesterol Direct HDL Cholesterol Free T4 TSH 3rd Generation Fingerstick Blood Sugar Results: 72 Critical Care Progress Note - Nutrition Nutrition: Nutrition Category Date Time Status NPO Diet [DIET] Diets 07/18/17 Breakfast Active
--- NOTE | 2017-07-19 15:25 | CARD ---
APPROVED REPORT EXAM: Two-dimensional and M-mode echocardiogram with Doppler and color Doppler. Other Information Quality : GoodRhythm : NSR INDICATION Cardiomyopathy Congestive Heart Failure SBO VOLVULUS RISK FACTORS Hypertension Diabetes 2D DIMENSIONS IVSd1.1 (0.7-1.1cm)LVDd6.3 (3.9-5.9cm) PWd1.4 (0.7-1.1cm)LVDs5.7 (2.5-4.0cm) FS (%) 9.8 %LVEF (%)20.9 (>50%) M-Mode DIMENSIONS Left Atrium (MM)3.82 (2.5-4.0cm)Aortic Root3.14 (2.2-3.7cm) Aortic Cusp Exc.1.90 (1.5-2.0cm) Mitral Valve E/A ratio0.0 TDI E/Lateral E'0.0E/Medial E'0.0 LEFT VENTRICLE The Left Ventricle is mildly dilated. The systolic function is severely impaired. RIGHT VENTRICLE The right ventricle is normal size. ATRIA The left atrium size is normal. The right atrium size is normal. AORTIC VALVE The aortic valve is normal in structure. MITRAL VALVE Mitral regurgitation is trace to mild. TRICUSPID VALVE There is mild tricuspid regurgitation. <Conclusion> Severely reduced LV systolic dysfunction. Dilated LV. Trace to mild MR. Mild TR.
--- NOTE | 2017-07-19 16:32 | CP.PCM.PN ---
Subjective - Date & Time of Evaluation Date of Evaluation: 07/19/17 Time of Evaluation: 14:00 - Subjective Subjective: SURGERY PROGRESS NOTE FOR DR. AREVALO Patient seen and examined at bedside in the ICU. Yesterday, she was taken to the OR but before the case started, she developed wide complex tachycardia so the case was cancelled and she was transferred to the ICU. Today, the patient denies any abdominal pain. She is passing a lot of flatus. She has not had a bowel movement since she was admitted. She tolerated her CLD for lunch. Objective - Vital Signs/Intake and Output Vital Signs (last 24 hours): Temp Pulse Resp BP Pulse Ox 98.5 F 68 19 133/68 96 07/19/17 12:00 07/19/17 16:00 07/19/17 16:00 07/19/17 15:26 07/19/17 16:00 Intake and Output: 07/19/17 07/19/17 06:59 18:59 Intake Total 260 800 Output Total 1350 725 Balance -1090 75 - Medications Medications: Current Medications Furosemide (Lasix) 40 mg PO DAILY [facility] Last Admin: 07/19/17 10:53 Dose: 40 mg Heparin Sodium (Porcine) (Heparin) 5,000 units SC Q12 [facility] Last Admin: 07/19/17 11:02 Dose: Not Given Sodium Chloride (Sodium Chloride 0.9%) 1,000 mls @ 20 mls/hr IV .Q24H [facility] Last Admin: 07/18/17 19:49 Dose: 20 mls/hr Insulin Aspart (Novolog) 0 unit SC ACHS [facility] PRN Reason: Protocol Last Admin: 07/19/17 12:52 Dose: Not Given Losartan Potassium (Cozaar) 100 mg PO DAILY [facility] Last Admin: 07/19/17 10:54 Dose: 100 mg Metoprolol Succinate (Toprol Xl) 100 mg PO DAILY [facility] Last Admin: 07/19/17 10:54 Dose: 100 mg Morphine Sulfate (Morphine) 2 mg IVP Q4 PRN PRN Reason: Pain, moderate (4-7) Last Admin: 07/18/17 22:26 Dose: 2 mg Ondansetron HCl (Zofran Inj) 4 mg IVP Q4 PRN PRN Reason: Nausea/Vomiting Last Admin: 07/18/17 05:56 Dose: 4 mg Pantoprazole Sodium (Protonix Ec Tab) 40 mg PO DAILY [facility] Last Admin: 07/19/17 10:53 Dose: 40 mg - Labs Labs: 07/19/17 06:46 07/19/17 06:44 APTT 29 SECONDS (21-34) 07/19/17 06:44 - Constitutional Appears: Non-toxic, No Acute Distress - Head Exam Head Exam: ATRAUMATIC, NORMAL INSPECTION - Eye Exam Eye Exam: EOMI, Normal appearance - Respiratory Exam Respiratory Exam: NORMAL BREATHING PATTERN. absent: Respiratory Distress - Cardiovascular Exam Cardiovascular Exam: +S1, +S2 - GI/Abdominal Exam GI & Abdominal Exam: Soft. absent: Distended, Firm, Guarding, Rigid, Tenderness , Rebound - Neurological Exam Neurological Exam: Alert, Awake, Oriented x3 - Psychiatric Exam Psychiatric exam: Normal Affect, Normal Mood - Skin Skin Exam: Dry, Normal Color, Warm Assessment and Plan - Assessment and Plan (Free Text) Assessment: 71yo F with PMHx of HTN, CKD, CHF, SBO and multiple abdominal surgeries who presented with abdominal pain and is found to have an SBO, with cancelled surgery yesterday due to wide complex tachycardia - Afebrile, VSS - Had ECHO today which showed severely reduced LV systolic dysfunction, dilated LV, trace to mild MR, mild TR - Passing flatus, no BM yet - Advanced to CLD today - IV Fluids - Morphine and Zofran PRN - Encourage ambulation - Patient's SBO appears to be resolving, no plans for surgery at this time - Discussed plan with Dr. Maggi Spear PGY-3
--- NOTE | 2017-07-19 20:37 | CP.PCM.PN ---
Subjective - Date & Time of Evaluation Date of Evaluation: 07/19/17 Time of Evaluation: 17:00 - Subjective Subjective: had tachy arrhythmia prior to surgery, base line wide complex, no LOC SOB, ? A Fib, responded to amio IV, since then no SX, no further abd pain, no surgery on diet, observe repeat echo ? DCM Objective - Vital Signs/Intake and Output Vital Signs (last 24 hours): Temp Pulse Resp BP Pulse Ox 98.3 F 75 16 127/71 96 07/19/17 16:00 07/19/17 19:00 07/19/17 19:00 07/19/17 18:28 07/19/17 19:00 Intake and Output: 07/19/17 07/20/17 18:59 06:59 Intake Total 1040 120 Output Total 725 150 Balance 315 -30 - Medications Medications: Current Medications Furosemide (Lasix) 40 mg PO DAILY [facility] Last Admin: 07/19/17 10:53 Dose: 40 mg Heparin Sodium (Porcine) (Heparin) 5,000 units SC Q12 [facility] Last Admin: 07/19/17 11:02 Dose: Not Given Sodium Chloride (Sodium Chloride 0.9%) 1,000 mls @ 20 mls/hr IV .Q24H [facility] Last Admin: 07/18/17 19:49 Dose: 20 mls/hr Insulin Aspart (Novolog) 0 unit SC ACHS [facility] PRN Reason: Protocol Last Admin: 07/19/17 16:50 Dose: Not Given Losartan Potassium (Cozaar) 100 mg PO DAILY [facility] Last Admin: 07/19/17 10:54 Dose: 100 mg Metoprolol Succinate (Toprol Xl) 100 mg PO DAILY [facility] Last Admin: 07/19/17 10:54 Dose: 100 mg Morphine Sulfate (Morphine) 2 mg IVP Q4 PRN PRN Reason: Pain, moderate (4-7) Last Admin: 07/18/17 22:26 Dose: 2 mg Ondansetron HCl (Zofran Inj) 4 mg IVP Q4 PRN PRN Reason: Nausea/Vomiting Last Admin: 07/18/17 05:56 Dose: 4 mg Pantoprazole Sodium (Protonix Ec Tab) 40 mg PO DAILY [facility] Last Admin: 07/19/17 10:53 Dose: 40 mg - Labs Labs: 07/19/17 06:46 07/19/17 06:44 APTT 29 SECONDS (21-34) 07/19/17 06:44 - Constitutional Appears: Non-toxic - Head Exam Head Exam: ATRAUMATIC - Eye Exam Eye Exam: EOMI - ENT Exam ENT Exam: Mucous Membranes Moist - Neck Exam Neck Exam: absent: Lymphadenopathy, Thyromegaly - Respiratory Exam Respiratory Exam: Clear to Ausculation Bilateral. absent: Prolonged Expiratory Phase, Rales - Cardiovascular Exam Cardiovascular Exam: REGULAR RHYTHM, Murmur - GI/Abdominal Exam GI & Abdominal Exam: Normal Bowel Sounds. absent: Organomegaly - Rectal Exam Rectal Exam: Deferred - Extremities Exam Extremities Exam: Normal Capillary Refill. absent: Calf Tenderness - Neurological Exam Neurological Exam: Alert, Oriented x3 - Psychiatric Exam Psychiatric exam: Normal Affect, Normal Mood - Skin Skin Exam: Dry Assessment and Plan (1) Volvulus of intestine Status: Acute (2) Small bowel obstruction Status: Acute (3) CHF (congestive heart failure), NYHA class II Status: Chronic (4) Diabetes 1.5, managed as type 2 Status: Chronic (5) Hypertension Status: Chronic
[2017-07-19] MEDS: Sodium Chloride 0.9% 1,000 ML IV SCH (21:06)
[2017-07-19 22:58] VITALS: RESP 20
[2017-07-20] MEDS: (Novolog) Insulin Aspart, Recombinant 100 u/ml 10 ml vial SC SCH ×2 (08:06→12:12)
[2017-07-20 08:09] VITALS: O2SAT 95
[2017-07-20] MEDS: Pantoprazole 40 mg EC Tab PO SCH (09:59)
[2017-07-20] MEDS: Metoprolol Succinate 100 mg XL Tab PO SCH (10:00)
--- NOTE | 2017-07-20 11:52 | CP.PCM.PN ---
Subjective - Date & Time of Evaluation Date of Evaluation: 07/20/17 Time of Evaluation: 12:00 - Subjective Subjective: Doing well tolerating food, no heart failure and no arrhythmia, for ICD as outpatient. No surgery for this time as per surgery Objective - Vital Signs/Intake and Output Vital Signs (last 24 hours): Temp Pulse Resp BP Pulse Ox 97.3 F L 67 20 129/79 95 07/20/17 07:25 07/20/17 10:35 07/20/17 07:25 07/20/17 10:35 07/20/17 07:25 Intake and Output: 07/20/17 07/20/17 06:59 18:59 Intake Total 520 Output Total 350 Balance 170 - Medications Medications: Current Medications Furosemide (Lasix) 40 mg PO DAILY [facility] Last Admin: 07/20/17 09:59 Dose: 40 mg Heparin Sodium (Porcine) (Heparin) 5,000 units SC Q12 [facility] Last Admin: 07/20/17 09:58 Dose: Not Given Sodium Chloride (Sodium Chloride 0.9%) 1,000 mls @ 20 mls/hr IV .Q24H [facility] Last Admin: 07/19/17 21:06 Dose: Not Given Insulin Aspart (Novolog) 0 unit SC ACHS [facility] PRN Reason: Protocol Last Admin: 07/20/17 08:06 Dose: Not Given Losartan Potassium (Cozaar) 100 mg PO DAILY [facility] Last Admin: 07/20/17 09:58 Dose: 100 mg Metoprolol Succinate (Toprol Xl) 100 mg PO DAILY [facility] Last Admin: 07/20/17 10:00 Dose: 100 mg Morphine Sulfate (Morphine) 2 mg IVP Q4 PRN PRN Reason: Pain, moderate (4-7) Last Admin: 07/18/17 22:26 Dose: 2 mg Ondansetron HCl (Zofran Inj) 4 mg IVP Q4 PRN PRN Reason: Nausea/Vomiting Last Admin: 07/18/17 05:56 Dose: 4 mg Pantoprazole Sodium (Protonix Ec Tab) 40 mg PO DAILY [facility] Last Admin: 07/20/17 09:59 Dose: 40 mg - Labs Labs: 07/19/17 06:46 07/19/17 06:44 APTT 29 SECONDS (21-34) 07/19/17 06:44 - Constitutional Appears: Non-toxic - Head Exam Head Exam: ATRAUMATIC - Eye Exam Eye Exam: EOMI - ENT Exam ENT Exam: Mucous Membranes Moist - Neck Exam Neck Exam: absent: Lymphadenopathy, Thyromegaly - Respiratory Exam Respiratory Exam: Clear to Ausculation Bilateral. absent: Rales - Cardiovascular Exam Cardiovascular Exam: REGULAR RHYTHM, Murmur - GI/Abdominal Exam GI & Abdominal Exam: Normal Bowel Sounds. absent: Organomegaly - Rectal Exam Rectal Exam: Deferred - Extremities Exam Extremities Exam: Normal Capillary Refill. absent: Calf Tenderness - Neurological Exam Neurological Exam: Alert Assessment and Plan (1) Volvulus of intestine Status: Acute (2) Small bowel obstruction Status: Acute (3) CHF (congestive heart failure), NYHA class II Status: Chronic (4) Diabetes 1.5, managed as type 2 Status: Chronic (5) Hypertension Status: Chronic
--- NOTE | 2017-07-20 12:33 | CP.PCM.PN ---
Subjective - Date & Time of Evaluation Date of Evaluation: 07/20/17 Time of Evaluation: 07:00 - Subjective Subjective: SURGERY PROGRESS NOTE FOR DR. AREVALO Patient seen and examined at bedside. She was transferred out of the ICU. She denies any abdominal pain. She is passing a lot of flatus. She has not had a bowel movement since she was admitted. She tolerated her CLD. Objective - Vital Signs/Intake and Output Vital Signs (last 24 hours): Temp Pulse Resp BP Pulse Ox 97.3 F L 67 20 129/79 95 07/20/17 07:25 07/20/17 10:35 07/20/17 07:25 07/20/17 10:35 07/20/17 07:25 Intake and Output: 07/20/17 07/20/17 06:59 18:59 Intake Total 520 Output Total 350 Balance 170 - Medications Medications: Current Medications Furosemide (Lasix) 40 mg PO DAILY [facility] Last Admin: 07/20/17 09:59 Dose: 40 mg Heparin Sodium (Porcine) (Heparin) 5,000 units SC Q12 [facility] Last Admin: 07/20/17 09:58 Dose: Not Given Sodium Chloride (Sodium Chloride 0.9%) 1,000 mls @ 20 mls/hr IV .Q24H [facility] Last Admin: 07/19/17 21:06 Dose: Not Given Insulin Aspart (Novolog) 0 unit SC ACHS [facility] PRN Reason: Protocol Last Admin: 07/20/17 12:12 Dose: Not Given Losartan Potassium (Cozaar) 100 mg PO DAILY [facility] Last Admin: 07/20/17 09:58 Dose: 100 mg Metoprolol Succinate (Toprol Xl) 100 mg PO DAILY [facility] Last Admin: 07/20/17 10:00 Dose: 100 mg Morphine Sulfate (Morphine) 2 mg IVP Q4 PRN PRN Reason: Pain, moderate (4-7) Last Admin: 07/18/17 22:26 Dose: 2 mg Ondansetron HCl (Zofran Inj) 4 mg IVP Q4 PRN PRN Reason: Nausea/Vomiting Last Admin: 07/18/17 05:56 Dose: 4 mg Pantoprazole Sodium (Protonix Ec Tab) 40 mg PO DAILY [facility] Last Admin: 07/20/17 09:59 Dose: 40 mg - Labs Labs: 07/19/17 06:46 07/19/17 06:44 APTT 29 SECONDS (21-34) 07/19/17 06:44 - Constitutional Appears: Non-toxic, No Acute Distress - Head Exam Head Exam: ATRAUMATIC, NORMAL INSPECTION - Eye Exam Eye Exam: EOMI, Normal appearance - Respiratory Exam Respiratory Exam: NORMAL BREATHING PATTERN. absent: Respiratory Distress - Cardiovascular Exam Cardiovascular Exam: +S1, +S2 - GI/Abdominal Exam GI & Abdominal Exam: Soft. absent: Distended, Firm, Guarding, Rigid, Tenderness , Rebound - Neurological Exam Neurological Exam: Alert, Awake, Oriented x3 - Psychiatric Exam Psychiatric exam: Normal Affect, Normal Mood - Skin Skin Exam: Dry, Normal Color, Warm Assessment and Plan - Assessment and Plan (Free Text) Assessment: 71yo F with PMHx of HTN, CKD, CHF, SBO and multiple abdominal surgeries who presented with abdominal pain and was found to have an SBO, with cancelled surgery 2 days ago due to wide complex tachycardia - Afebrile, VSS - Had ECHO yesterday, per Dr. Garay, ICD as outpatient - Passing flatus, no BM yet - Tolerating CLD - Advanced to full liquids today - Encourage ambulation - As SBO is resolving, no plans for surgery at this time - Discussed plan with Dr. Maggi Spear PGY-3
--- NOTE | 2017-07-20 13:46 | PCM.HF ---
Heart Failure Core Measure - Heart Failure Ejection Fraction: Less Than 40 % DINA Inhibitor Prescribed: No Contraindication/Reason for not providing: on ARB Beta-Nils Prescribed: Metoprolol Succinate Angiotensin II Receptor Nils Prescribed: Yes AnticoagulationTherapy for Atrial Fibrillation/Atrialflutter: No Contraindication/Reason for not providing: no Hx Afib Aldosterone Antagonist Prescribed: No Contraindication/Reason for not providing: raymundo have out pt AICD Hydralazine Nitrate Prescribed: No Contraindication/Reason for not providing: raymundo have out pt AICD Implantable Cardioverter Defibrillator Therapy: Yes Contraindication/Reason for not providing: raymundo have out pt AICD Cardiac Resynchronization Therapy Prescribed: No Contraindication/Reason for not providing: raymundo have out pt AICD - Follow up Will be discharged to: Home Follow Up Date (must be within 7 days from discharge): 07/26/17 Follow Up Time: 09:00
--- NOTE | 2017-07-20 13:53 | CP.PCM.PN ---
Subjective - Date & Time of Evaluation Date of Evaluation: 07/20/17 Time of Evaluation: 13:48 - Subjective Subjective: patient seen by Dr Garay and clear for DC today... patient tolerated solid food for lunch patient denies abd pain N/V after eating.. positive passing gas, still no BM patient clear by surgical team for D/C. patient had schedule appointment with GI on sunday.. will follow up with Dr Garay in a week.. Objective - Vital Signs/Intake and Output Vital Signs (last 24 hours): Temp Pulse Resp BP Pulse Ox 97.3 F L 67 20 129/79 95 07/20/17 07:25 07/20/17 10:35 07/20/17 07:25 07/20/17 10:35 07/20/17 07:25 Intake and Output: 07/20/17 07/20/17 06:59 18:59 Intake Total 520 Output Total 350 Balance 170 - Medications Medications: Current Medications Furosemide (Lasix) 40 mg PO DAILY [facility] Last Admin: 07/20/17 09:59 Dose: 40 mg Heparin Sodium (Porcine) (Heparin) 5,000 units SC Q12 [facility] Last Admin: 07/20/17 09:58 Dose: Not Given Sodium Chloride (Sodium Chloride 0.9%) 1,000 mls @ 20 mls/hr IV .Q24H [facility] Last Admin: 07/19/17 21:06 Dose: Not Given Insulin Aspart (Novolog) 0 unit SC ACHS [facility] PRN Reason: Protocol Last Admin: 07/20/17 12:12 Dose: Not Given Losartan Potassium (Cozaar) 100 mg PO DAILY [facility] Last Admin: 07/20/17 09:58 Dose: 100 mg Metoprolol Succinate (Toprol Xl) 100 mg PO DAILY [facility] Last Admin: 07/20/17 10:00 Dose: 100 mg Morphine Sulfate (Morphine) 2 mg IVP Q4 PRN PRN Reason: Pain, moderate (4-7) Last Admin: 07/18/17 22:26 Dose: 2 mg Ondansetron HCl (Zofran Inj) 4 mg IVP Q4 PRN PRN Reason: Nausea/Vomiting Last Admin: 07/18/17 05:56 Dose: 4 mg Pantoprazole Sodium (Protonix Ec Tab) 40 mg PO DAILY [facility] Last Admin: 07/20/17 09:59 Dose: 40 mg - Labs Labs: 07/19/17 06:46 07/19/17 06:44 APTT 29 SECONDS (21-34) 07/19/17 06:44
[2017-07-20 16:59] VITALS: BP 112/63; PULSE 71; TEMP 98
--- NOTE | 2017-07-20 21:40 | CP.PCM.DIS ---
Provider - Provider Date of Admission: 07/18/17 00:07 Attending physician: Atif Garay MD Time Spent in preparation of Discharge (in minutes): 20 Diagnosis - Discharge Diagnosis (1) Volvulus of intestine Status: Acute (2) Small bowel obstruction Status: Acute (3) CHF (congestive heart failure), NYHA class II Status: Chronic (4) Diabetes 1.5, managed as type 2 Status: Chronic (5) Hypertension Status: Chronic Hospital Course - Lab Results Lab Results: Micro Results 07/17/17 21:41 Blood Blood Culture - Preliminary NO GROWTH AFTER 48 HOURS 07/17/17 21:41 Blood S.aureus & Coag-Neg Staph PNA FISH - Preliminary 07/17/17 21:41 Blood Blood Culture - Preliminary Gram Positive Cocci 07/17/17 21:41 Blood Gram Stain - Final Most Recent Lab Values WBC 7.8 K/uL (4.8-10.8) 07/19/17 06:46 RBC 4.13 Mil/uL (3.80-5.20) 07/19/17 06:46 Hgb 12.5 g/dL (11.0-16.0) 07/19/17 06:46 Hct 36.9 % (34.0-47.0) 07/19/17 06:46 MCV 89.3 fL (81.0-99.0) 07/19/17 06:46 MCH 30.2 pg (27.0-31.0) 07/19/17 06:46 MCHC 33.8 g/dL (33.0-37.0) 07/19/17 06:46 RDW 14.5 % (11.5-14.5) 07/19/17 06:46 Plt Count 219 K/uL (130-400) 07/19/17 06:46 MPV 8.8 fL (7.2-11.7) 07/19/17 06:46 Neut % (Auto) 61.6 % (50.0-75.0) 07/19/17 06:46 Lymph % (Auto) 30.8 % (20.0-40.0) 07/19/17 06:46 [place] % (Auto) 6.3 % (0.0-10.0) 07/19/17 06:46 Eos % (Auto) 0.8 % (0.0-4.0) 07/19/17 06:46 Baso % (Auto) 0.5 % (0.0-2.0) 07/19/17 06:46 Neut # 4.8 K/uL (1.8-7.0) 07/19/17 06:46 Lymph # 2.4 K/uL (1.0-4.3) 07/19/17 06:46 [place] # 0.5 K/uL (0.0-0.8) 07/19/17 06:46 Eos # 0.1 K/uL (0.0-0.7) 07/19/17 06:46 Baso # 0.0 K/uL (0.0-0.2) 07/19/17 06:46 APTT 29 SECONDS (21-34) 07/19/17 06:44 Sodium 139 mmol/L (132-148) 07/19/17 06:44 Potassium 3.7 mmol/L (3.6-5.2) 07/19/17 06:44 Chloride 107 mmol/L (98-107) 07/19/17 06:44 Carbon Dioxide 21 mmol/L (22-30) L 07/19/17 06:44 Anion Gap 15 (10-20) 07/19/17 06:44 BUN 13 mg/dL (7-17) 07/19/17 06:44 Creatinine 1.1 mg/dL (0.7-1.2) 07/19/17 06:44 Est GFR ( Amer) 59 07/19/17 06:44 Est GFR (Non-Af Amer) 49 07/19/17 06:44 POC Glucose (mg/dL) 110 mg/dL (65-110) 07/20/17 16:31 Random Glucose 73 mg/dL (65-105) 07/19/17 06:44 Hemoglobin A1c 6.3 % (4.2-6.5) 07/19/17 06:44 Lactic Acid 1.7 mmol/L (0.7-2.1) 07/17/17 22:00 Calcium 8.6 mg/dl (8.6-10.4) 07/19/17 06:44 Phosphorus 2.8 mg/dL (2.5-4.5) 07/19/17 06:44 Magnesium 1.6 mg/dL (1.6-2.3) 07/19/17 06:44 Total Bilirubin 0.6 mg/dL (0.2-1.3) 07/19/17 06:44 AST 21 U/L (14-36) 07/19/17 06:44 ALT 27 U/L (9-52) 07/19/17 06:44 Alkaline Phosphatase 59 U/L (38-126) 07/19/17 06:44 Troponin I 0.0300 ng/mL (0.00-0.120) 07/17/17 21:47 Total Protein 6.8 g/dL (6.3-8.3) 07/19/17 06:44 Albumin 3.6 g/dL (3.5-5.0) 07/19/17 06:44 Globulin 3.2 gm/dL (2.2-3.9) 07/19/17 06:44 Albumin/Globulin Ratio 1.1 (1.0-2.1) 07/19/17 06:44 Triglycerides 47 mg/dL (0-149) 07/19/17 06:44 Cholesterol 128 mg/dL (0-199) 07/19/17 06:44 LDL Cholesterol Direct 54 mg/dL (0-129) 07/19/17 06:44 HDL Cholesterol 61 mg/dL (30-70) 07/19/17 06:44 Lipase 47 U/L (23-300) 07/17/17 21:47 Free T4 1.35 ng/dL (0.78-2.19) 07/19/17 06:44 TSH 3rd Generation 1.82 mIU/L (0.46-4.68) 07/19/17 06:44 - Hospital Course Hospital Course: 72 admitted with sbo, hx of DCM,was taken to OR for ex. lap. developped tachy responded to amio, no documented a fib, observe for icd as outpt, improved sbo tolerated food Discharge Exam - Head Exam Head Exam: ATRAUMATIC - Eye Exam Eye Exam: EOMI - ENT Exam ENT Exam: Mucous Membranes Moist - Neck Exam Neck exam: Full Rom - Respiratory Exam Respiratory Exam: NORMAL BREATHING PATTERN. absent: Rales - Cardiovascular Exam Cardiovascular Exam: REGULAR RHYTHM, Systolic Murmur - GI/Abdominal Exam GI & Abdominal Exam: Normal Bowel Sounds. absent: Organomegaly - Rectal Exam Rectal Exam: Deferred - Extremities Exam Extremities exam: normal capillary refill - Neurological Exam Neurological exam: Alert, Oriented x3 - Psychiatric Exam Psychiatric exam: Normal Mood - Skin Skin Exam: Dry Discharge Plan - Follow Up Plan Condition: GUARDED Disposition: HOME/ ROUTINE Instructions: Heart Failure (DC), Heart Healthy Diet (DC), Bowel Obstruction ( DC) Additional Instructions: follow up with Dr Garay in the office in one week... call for appointment time on sunday.. follow with your stomach doctor on Sunday as schedule... resume all your home meds .. take ducolax and miralax as recommended.. any other severe abdominal pain, nausea and vomiting notify your doctor immediately and return to the ER any further question and concern contact Dr Garay Referrals: Ed Tay Jr., MD [Staff Provider] - Atif Garay MD [Staff Provider] -
--- NOTE | 2017-07-22 06:45 | CARD ---
APPROVED REPORT EKG Measurement Heart [id number] SD 178P50 [id number] <Conclusion> Normal sinus rhythm Possible Left atrial enlargement Left bundle branch block Abnormal ECG
== END 2017-07-20 16:55 | disposition home or self-care (01) | DRG 389 ==
LOC: C.ER 21:24 → C.6T 07-18 00:07 → C.9I 07-18 17:26 → C.6T 07-19 22:43
PROVIDERS: ADMIT Internal Medicine Cardiovascular Disease; ATTEND Internal Medicine Cardiovascular Disease
DX: K56.2 Volvulus (principal); I42.0 Dilated cardiomyopathy; I11.0 Hypertensive heart disease with heart failure; I50.9 Heart failure, unspecified; M19.041 Primary osteoarthritis, right hand; E11.9 Type 2 diabetes mellitus without complications; R00.0 Tachycardia, unspecified; Z53.09 Procedure and treatment not carried out because of other contraindication; I48.91 Unspecified atrial fibrillation; Z79.4 Long term (current) use of insulin

== ENCOUNTER 2017-08-02 18:19 | Inpatient (IN) | payer MEDICARE, OTHER ==
[2017-08-02 18:20] VITALS: BMI 36.6
[2017-08-02] MEDS ORDERED: Sodium Chloride 0.9% 1,000 ML ONE (19:38)
[2017-08-02] MEDS ORDERED: Morphine 4 MG/ML VIAL ONE (19:38)
--- NOTE | 2017-08-02 19:40 | C.PDOC ---
History Of Present Illness 72 year old female, with PMHx of HTN, CKD, CHF, SBO and multiple abdominal surgeries, presents to the ED for evaluation of abdominal pain which began at around 1600 today. Patient states pain is around her periumbilical region, constant, dull, and says it is "just like last time." Patient was admitted on for SBO/volvulus but cancelled her surgery 2 days ago due to white complex tachycardia. Patient states symptoms spontaneously resolved last time. Patient admits to nausea, small bowel movement this morning but no flatus since. Patient admits to bloating and denies fever. ABD PAIN SINCE 1600. PERIUMB, CONSTANT DULL "JUST LIKE LAST TIME". ADMITTED 07/21 FOR SBO/VOLVULUS BUT cancelled surgery 2 days ago due to wide complex tachycardia. SX SPONT RESOLVED LAST TIME. +NAUSEA, +SMALL BM THIS MORNING BUT NO FLATUS SINCE. NO FEVER. +BLOATING PMHx of HTN, CKD, CHF, SBO and multiple abdominal surgeries EXAM MILD DIST NONTOXIC ABD +PERIUM TEND MOD SOFT MILD DIST NO R/G REMAINDER NEG Time Seen by Provider: 08/02/17 19:31 Chief Complaint (Nursing): Abdominal Pain History Per: Patient History/Exam Limitations: no limitations Onset/Duration Of Symptoms: Hrs Current Symptoms Are (Timing): Still Present Location Of Pain/Discomfort: Periumbilical Radiation Of Pain To:: None Quality Of Discomfort: Dull, "Pain" Associated Symptoms: Nausea. denies: Fever Last Bowel Movement: Today Additional History Per: Patient Abnormal Vaginal Bleeding: No Past Medical History Reviewed: Historical Data, Nursing Documentation, Vital Signs Vital Signs: Last Vital Signs Temp 98.5 F 08/02/17 18:34 Pulse 75 08/02/17 22:52 Resp 18 08/02/17 22:52 BP 120/59 L 08/02/17 22:52 Pulse Ox 98 08/02/17 22:52 - Medical History PMH: Arthritis (HANDS; RIGHT ARM), CHF, Colonic Polyps, Diverticulitis, HTN, Pancreatitis Denies: Atrial Fibrillation, Cardia Arrhythmia, Crohn's Disease, Fractures, Gastritis, Gall Bladder Disease, Hypercholesterolemia, Mitral Valve Prolapse, Osteoporosis, Peripheral Edema, Chronic Kidney Disease, Rheumatoid Arthritis Surgical History: Endoscopy Denies: Appendectomy, CABG, Carotid Endarterectomy, Cholecystectomy, Coronary Stent, Pacemaker, Tonsillectomy Family History: States: Unknown Family Hx - Social History Hx Alcohol Use: No Hx Substance Use: No - Immunization History Hx Tetanus Toxoid Vaccination: No Hx Influenza Vaccination: No Hx Pneumococcal Vaccination: Yes Review Of Systems Constitutional: Negative for: Fever Gastrointestinal: Positive for: Nausea, Abdominal Pain (periumbilical ) Physical Exam - Physical Exam Appears: Non-toxic, Other (mild distress ) Skin: Normal Color, Warm, Dry Eye(s): bilateral: Normal Inspection Oral Mucosa: Moist Neck: Supple Chest: Symmetrical, No Deformity, No Tenderness Cardiovascular: Rhythm Regular, No Murmur Respiratory: Normal Breath Sounds, No Rales, No Rhonchi, No Wheezing Gastrointestinal/Abdominal: Soft, Tenderness (moderate, periumbilical), No Guarding, No Rebound Extremity: Normal ROM, Capillary Refill (less than 2 seconds ) Neurological/Psych: Oriented x3, Normal Speech, Normal Cognition Gait: Steady ED Course And Treatment - Laboratory Results Result Diagrams: 08/02/17 20:00 08/02/17 20:00 ECG: Interpreted By Me ECG Rhythm: L BBB Rate From EC O2 Sat by Pulse Oximetry: 98 (on RA) Pulse Ox Interpretation: Normal - Radiology CXR: Interpreted by Me, Viewed By Me, Read By Radiologist CXR Interpretation: Yes: Other (unchanged from 03/15) Progress Note: labs, CXR, EKG, and CT A/P ordered and reviewed. Morphine IVP, Zofran IVP, and IV Fluids administered. Progress - Re-Evaluation Re-evaluation Note: 08/02/17 23:18 SP MORPHINE. APPEARS COMFORTABLE VSS. PS PMD DR THURMAN. PT PREV ADMITTED DR GLYNN 08/02/17 23:23 D/W DR GLYNN STATES PT PREV RESPONDED WELL WO NGT PLACEMENT, DOES NOT WISH NGT PLACED. ADMIT, CONSULT DR AREVALO - Data Reviewed Data Reviewed: Lab, Diagnostic imaging, EKG, Old records Disposition Counseled Patient/Family Regarding: Studies Performed, Diagnosis - Disposition Disposition: HOSPITALIZED Disposition Time: 23:25 Condition: STABLE Forms: [facility] (Japanese) - POA Present On Arrival: None - Clinical Impression Clinical Impression: Small bowel obstruction - Scribe Statement The provider has reviewed the documentation as recorded by the Scribe (Tami Paula) Provider Attestation: All medical record entries made by the Scribe were at my direction and personally dictated by me. I have reviewed the chart and agree that the record accurately reflects my personal performance of the history, physical exam, medical decision making, and the department course for this patient. I have also personally directed, reviewed, and agree with the discharge instructions and disposition. Decision To Admit - Pt Status Changed To: Hospital Disposition Of: Inpatient - Admit Certification Admit to Inpatient:: After my assessment, the patient will require hospitalization for at least two midnights. This is because of the severity of symptoms shown, intensity of services needed, and/or the medical risk in this patient being treated as an outpatient. - InPatient: Physician Admission Certification:: SEE NOTE - . Bed Request Type: Regular Admitting Physician: Atif Glynn Patient Diagnosis: Small bowel obstruction
[2017-08-02] MEDS ORDERED: Sodium Chloride 0.9% 1,000 ML IV ONE (19:41)
[2017-08-02] MEDS ORDERED: Iohexol 240 (50 ml) PO STA (19:41)
[2017-08-02] MEDS: (Novolog) Insulin Aspart, Recombinant 100 u/ml 10 ml vial SC SCH (20:00)
[2017-08-02 20:07] LABS: WHITE BLOOD COUNT 10.3 K/uL (4.8-10.8)
[2017-08-02 20:08] LABS: BASO % 0.3 % (0.0-2.0); EOS % 0.2 % (0.0-4.0); HEMATOCRIT 43.7 % (34.0-47.0); LYMPH # 2.1 K/uL (1.0-4.3); LYMPH % 20.1 % (20.0-40.0); MEAN CELL VOLUME 89.1 fL (81.0-99.0); MEAN CORPUSCULAR HEMOGLOBIN 29.5 pg (27.0-31.0); MEAN CORPUSCULAR HGB CONC 33.2 g/dL (33.0-37.0); MEAN PLATELET VOLUME 9.3 fL (7.2-11.7); MONO % 4.7 % (0.0-10.0); RED CELL DISTRIBUTION WIDTH 14.8 % (11.5-14.5)
[2017-08-02 20:09] LABS: MONO # 0.5 K/uL (0.0-0.8); POTASSIUM 4.2 mmol/L (3.6-5.2)
[2017-08-02 20:11] LABS: BILIRUBIN,TOTAL 0.4 mg/dL (0.2-1.3)
[2017-08-02 20:12] LABS: ALB/GLOB RATIO 1.3 (1.0-2.1); CALCIUM 9.5 mg/dl (8.6-10.4); TOTAL PROTEIN 8.3 g/dL (6.3-8.3)
[2017-08-02] MEDS ORDERED: Iohexol 240 (50 ml) ONE (20:16)
[2017-08-02] MEDS ORDERED: Iodixanol 320 MG/ML 100 ML BOTTLE IV ONE (20:45)
[2017-08-02 21:22] LABS: RBC URINE 1 /hpf (0-3); URINE BILIRUBIN NEGATIVE (NEGATIVE); URINE BLOOD NEGATIVE (NEGATIVE); URINE COLOR Yellow (YELLOW); URINE GLUCOSE (UA) NORMAL (Normal); URINE KETONE NEGATIVE (NEGATIVE); URINE LEUKOCYTE ESTERASE NEG Leu/uL (Negative); URINE PROTEIN 1+ mg/dL (NEGATIVE); URINE UROBILINOGEN NORMAL mg/dL (0.2-1.0); WBC URINE 3 /hpf (0-5)
--- NOTE | 2017-08-02 23:02 | CT ---
EXAM: CT Abdomen and Pelvis With Intravenous Contrast CLINICAL HISTORY: 72 years old, female; Pain; Abdominal pain; Generalized; Additional info: Abd pain RO obstruct TECHNIQUE: Axial computed tomography images of the abdomen and pelvis with intravenous contrast. All CT scans at this facility use one or more dose reduction techniques, viz.: automated exposure control; ma/kV adjustment per patient size (including targeted exams where dose is matched to indication; i.e. head); or iterative reconstruction technique. Coronal and sagittal reformatted images were created and reviewed. CONTRAST: 100 mL of visipaque 320 administered intravenously. COMPARISON: CT - ABD PELVIS IV CONTRAST ONLY 2017-07-17 23:04 FINDINGS: Lower thorax: Bibasilar atelectasis. The heart is enlarged, without significant pericardial effusion. A small hiatal hernia is present. ABDOMEN: Liver: No acute findings. Gallbladder and bile ducts: The gallbladder is decompressed. No calcified stones. No significant intra- or extrahepatic biliary ductal dilation. Pancreas: Enhances homogeneously. No ductal dilation. No discrete mass. Spleen: No acute findings. Adrenals: No acute findings. Kidneys and ureters: The right kidney is shrunken and atrophic. No hydronephrosis or renal calculi. No discrete solid mass. PELVIS: Bladder: No acute findings. Reproductive: No acute findings. Appendix: The appendix is not definitively visualized, however no pericecal inflammatory change is identified to suggest the presenc the e of acute appendicitis. ABDOMEN and PELVIS: Stomach and bowel: Proximal small bowel dilatation with interloop fluid and distal decompression, findings suggesting a high-grade small bowel obstruction, similar in appearance to 07/17/2017. Colonic diverticulosis, without inflammation. Fat containing left inguinal hernia. Peritoneum: As above. Lymph nodes: No pathologically enlarged lymph nodes. Vasculature: Calcified atherosclerotic disease. Bones: No acute fracture. IMPRESSION: High-grade small bowel obstruction, as detailed above.
[2017-08-03] MEDS ORDERED: Morphine 4 MG/ML VIAL ONE (00:37)
--- NOTE | 2017-08-03 06:18 | CP.PCM.CON ---
History of Present Illness - History of Present Illness History of Present Illness: Surgery: Dr. Tay Reason for consult: SBO CC: abdominal pain HPI: Patient is a 72 y/o female known to surgical service who presents complaining of abdominal pain that started acutely yesterday. She describes the pain as sharp with "rumbling". She reports lots of nausea but denies vomiting. She has had similar episodes in the past, just recently last week in which she had a small bowel obstruction. She states it resolved on its own, she did not require NGT decompression however she has had one in the past. She states her last flatus was yesterday just prior to onset of pain. She has not been able to tolerate any po intake. PMH: CHF, CKD, HTN, DM, arthritis, recurrent SBO PSH: GARRETT, D7C, ruptured ectopic x2 Social: denies ETOH, Tobacco, drug use Review of Systems - Review of Systems All systems: reviewed and no additional remarkable complaints except Review of Systems: unless stated in HPI Past Patient History - Infectious Disease Hx of Infectious Diseases: None - Past Medical History & Family History Past Medical History?: Yes - Past Social History Smoking Status: Never Smoked - CARDIAC Hx Cardiac Disorders: Yes Hx Atrial Fibrillation: No Hx Cardia Arrhythmia: No Hx Congestive Heart Failure: Yes Hx Hypercholesterolemia: No Hx Hypertension: Yes Hx Mitral Valve Prolapse: No Hx Pacemaker: No Hx Peripheral Edema: No - PULMONARY Hx Respiratory Disorders: No - NEUROLOGICAL Hx Neurological Disorder: No - HEENT Hx HEENT Problems: No - RENAL Hx Chronic Kidney Disease: No - ENDOCRINE/METABOLIC Hx Endocrine Disorders: Yes Other/Comment: Borderline diabetes - HEMATOLOGICAL/ONCOLOGICAL Hx Blood Disorders: No - INTEGUMENTARY Hx Dermatological Problems: No - MUSCULOSKELETAL/RHEUMATOLOGICAL Hx Musculoskeletal Disorders: Yes Hx Arthritis: Yes (HANDS; RIGHT ARM) Hx Falls: No Hx Fractures: No Hx Osteoporosis: No Hx Rheumatoid Arthritis: No - GASTROINTESTINAL Hx Gastrointestinal Disorders: Yes Hx Crohn's Disease: No Hx Diverticulitis: Yes Hx Gall Bladder Disease: No Hx Gastritis: No Hx Pancreatitis: Yes - GENITOURINARY/GYNECOLOGICAL Hx Genitourinary Disorders: No - PSYCHIATRIC Hx Psychophysiologic Disorder: No Hx Substance Use: No - SURGICAL HISTORY Hx Surgeries: No - ANESTHESIA Hx Anesthesia: Yes Hx Anesthesia Reactions: No Hx Malignant Hyperthermia: No Meds Allergies/Adverse Reactions: Allergies Allergy/AdvReac Type Severity Reaction Status Date / Time enalaprilat [From Vasotec] Allergy RASH Verified 08/02/17 18:33 hydrochlorothiazide Allergy RASH Verified 08/02/17 18:33 Physical Exam - Constitutional Appears: No Acute Distress, Chronically Ill - Head Exam Head Exam: ATRAUMATIC, NORMOCEPHALIC - Eye Exam Eye Exam: EOMI, Normal appearance - ENT Exam ENT Exam: Mucous Membranes Dry - Respiratory Exam Respiratory Exam: NORMAL BREATHING PATTERN. absent: Respiratory Distress - Cardiovascular Exam Cardiovascular Exam: REGULAR RHYTHM. absent: Tachycardia - GI/Abdominal Exam GI & Abdominal Exam: Distended, Firm (upper abdomen ), Soft (lower), Tenderness (upper abdomen diffusely ). absent: Guarding, Rebound, Rigid Additional comments: infraumbilical midline scar well healed - Extremities Exam Extremities exam: Positive for: normal inspection. Negative for: calf tenderness - Neurological Exam Neurological exam: Alert, Oriented x3 - Psychiatric Exam Psychiatric exam: Normal Affect, Normal Mood - Skin Skin Exam: Dry, Normal Color, Warm Results - Vital Signs Recent Vital Signs: Last Vital Signs Temp 98.5 F 08/03/17 01:30 Pulse 74 08/03/17 01:30 Resp 20 08/03/17 02:31 BP 148/80 08/03/17 01:30 Pulse Ox 95 08/03/17 02:31 - Labs Result Diagrams: 08/02/17 20:00 08/02/17 20:00 Labs: Laboratory Results - last 24 hr 08/02/17 08/02/17 08/02/17 20:00 20:00 21:16 WBC 10.3 RBC 4.91 Hgb 14.5 D Hct 43.7 MCV 89.1 MCH 29.5 MCHC 33.2 RDW 14.8 H Plt Count 296 MPV 9.3 Neut % (Auto) 74.7 Lymph % (Auto) 20.1 [place] % (Auto) 4.7 Eos % (Auto) 0.2 Baso % (Auto) 0.3 Neut # 7.7 H Lymph # 2.1 [place] # 0.5 Eos # 0.0 Baso # 0.0 Sodium 140 Potassium 4.2 Chloride 104 Carbon Dioxide 22 Anion Gap 18 BUN 17 Creatinine 1.2 Est GFR ( Amer) 53 Est GFR (Non-Af Amer) 44 Random Glucose 104 Calcium 9.5 Total Bilirubin 0.4 AST 23 ALT 33 Alkaline Phosphatase 87 Total Protein 8.3 Albumin 4.7 Globulin 3.6 Albumin/Globulin Ratio 1.3 Lipase 73 Urine Color Yellow Urine Clarity Clear Urine pH 5.0 Ur Specific [place] 1.020 Urine Protein 1+ H Urine Glucose (UA) Normal Urine Ketones Negative Urine Blood Negative Urine Nitrate Negative Urine Bilirubin Negative Urine Urobilinogen Normal Ur Leukocyte Esterase Neg Urine WBC (Auto) 3 Urine RBC (Auto) 1 Ur Squamous Epith Cells 2 Assessment & Plan - Assessment and Plan (Free Text) Assessment: 72 y/o female w/ recurrent SBO Plan: -recommend NGT decompression but patient prefers no hold off for now -NPO -IVFs -ambulating -monitor for bowel function -would like conservative management for SBO resolution -may consider OR due to frequent recurrence for obstructive symptoms -further recs per Dr. Maggi Ordoñez PGY3
[2017-08-03] MEDS ORDERED: Lactated Ringer's 1,000 ML IV SCH (06:30)
--- NOTE | 2017-08-03 08:03 | RAD ---
PROCEDURE: CHEST RADIOGRAPH, 1 VIEW HISTORY: abd pain COMPARISON: Portable chest 03/15/2017. FINDINGS: LUNGS: No definitive infiltrate is appreciated. Right hemidiaphragm remains elevated. PLEURA: No pneumothorax or pleural fluid seen. CARDIOVASCULAR: Mild pulmonary venous congestion is questioned with cardiomegaly remaining prominent. OSSEOUS STRUCTURES: No significant abnormalities. VISUALIZED UPPER ABDOMEN: Normal. OTHER FINDINGS: None. IMPRESSION: Limited pulmonary venous congestion is difficult to exclude. Cardiomegaly is stable. Right hemidiaphragm elevation is unchanged as well. No infiltrate identified bilaterally.
[2017-08-03] MEDS: Lactated Ringer's 1,000 ML IV SCH ×3 (09:24→18:52)
--- NOTE | 2017-08-03 09:39 | RAD ---
HISTORY: NGT placement COMPARISON: Portable chest 08/02/2017. FINDINGS: LUNGS: Improved inspiratory volume is identified with limited linear atelectasis appreciate the mid left lung zone laterally. No definitive airspace disease otherwise evident bilaterally. PLEURA: No significant pleural effusion identified, no pneumothorax apparent. CARDIOVASCULAR: Cardiomegaly is stable. No pulmonary vascular derangement. Pulmonary vascular pattern appears to have normalize. OSSEOUS STRUCTURES: No significant abnormalities. VISUALIZED UPPER ABDOMEN: Nasonex tube terminating at the left upper quadrant abdomen. OTHER FINDINGS: Elevated right hemidiaphragm again evident. IMPRESSION: Improved inspiratory volume. Linear atelectasis or fibrosis in the mid left lung zone laterally. No alveolitis or pleural effusion. No pneumothorax. Stable cardiomegaly. No residual pulmonary venous congestion.
--- NOTE | 2017-08-03 11:59 | CARD ---
APPROVED REPORT EKG Measurement Heart [id number] [place] 186P39 [id number] <Conclusion> Normal sinus rhythm Possible Left atrial enlargement Left bundle branch block Abnormal ECG
--- NOTE | 2017-08-03 12:14 | CP.PCM.HP ---
History of Present Illness - History of Present Illness History of Present Illness: Ms. 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 She had negative cardiac cath and lately the negative stress test for ischemia. She had ejection fraction of about 25-30% on medical treatment doing well however she was hesitant and did not want the implantable defibrillator. No syncope and no palpitation. She had prior abdominal surgery and frequent admissions for abdominal pain and CT scan that shows small bowel obstruction. The latest was 2 weeks ago at [facility], it was treated conservatively with adequate response. Was seen twice in the office since then for further observation without pain and she was tolerating food. At this time she reported again to the emergency department with similar pain, the CAT scan was again with small bowel obstruction. No shortness of breath and no chest pain. She had history of type 2 diabetes on diet and history of hypertension on medical treatment.at this time she was admitted with abdominal pain, vomiting, and the CAT scan showed in addition to obstruction a volvulus, planned to have exploration surgery., stable clinically , at her optimal state for an urgent and needed abdominal surgery, explainned the risk to the pt. Present on Admission - Present on Admission Any Indicators Present on Admission: No Review of Systems - Review of Systems Systems not reviewed;Unavailable: Unstable Vital Signs - Constitutional Constitutional: Anorexia - EENT Eyes: absent: Discharge Ears: absent: Ear Discharge, Dizziness Nose/Mouth/Throat: absent: Epistaxis - Cardiovascular Cardiovascular: absent: Acrocyanosis, Diaphoresis, Palpitations, Syncope - Respiratory Respiratory: absent: Cough, Hemoptysis, Dyspnea on Exertion, Wheezing - Gastrointestinal Gastrointestinal: Abdominal Pain, Nausea, Vomiting - Genitourinary Genitourinary: absent: Change in Urinary Stream - Reproductive: Female Reproductive:Female: Post Menopausal Past Patient History - Infectious Disease Hx of Infectious Diseases: None - Past Medical History & Family History Past Medical History?: Yes - Past Social History Smoking Status: Never Smoked - CARDIAC Hx Cardiac Disorders: Yes Hx Atrial Fibrillation: No Hx Cardia Arrhythmia: No Hx Congestive Heart Failure: Yes Hx Hypercholesterolemia: No Hx Hypertension: Yes Hx Mitral Valve Prolapse: No Hx Pacemaker: No Hx Peripheral Edema: No - PULMONARY Hx Respiratory Disorders: No - NEUROLOGICAL Hx Neurological Disorder: No - HEENT Hx HEENT Problems: No - RENAL Hx Chronic Kidney Disease: No - ENDOCRINE/METABOLIC Hx Endocrine Disorders: Yes Other/Comment: Borderline diabetes - HEMATOLOGICAL/ONCOLOGICAL Hx Blood Disorders: No - INTEGUMENTARY Hx Dermatological Problems: No - MUSCULOSKELETAL/RHEUMATOLOGICAL Hx Musculoskeletal Disorders: Yes Hx Arthritis: Yes (HANDS; RIGHT ARM) Hx Falls: No Hx Fractures: No Hx Osteoporosis: No Hx Rheumatoid Arthritis: No - GASTROINTESTINAL Hx Gastrointestinal Disorders: Yes Hx Crohn's Disease: No Hx Diverticulitis: Yes Hx Gall Bladder Disease: No Hx Gastritis: No Hx Pancreatitis: Yes - GENITOURINARY/GYNECOLOGICAL Hx Genitourinary Disorders: No - PSYCHIATRIC Hx Psychophysiologic Disorder: No Hx Substance Use: No - SURGICAL HISTORY Hx Surgeries: No - ANESTHESIA Hx Anesthesia: Yes Hx Anesthesia Reactions: No Hx Malignant Hyperthermia: No Meds Allergies/Adverse Reactions: Allergies Allergy/AdvReac Type Severity Reaction Status Date / Time enalaprilat [From Vasotec] Allergy RASH Verified 08/02/17 18:33 hydrochlorothiazide Allergy RASH Verified 08/02/17 18:33 Physical Exam - Constitutional Appears: Toxic - Head Exam Head Exam: ATRAUMATIC - Eye Exam Eye Exam: EOMI - ENT Exam ENT Exam: Mucous Membranes Moist - Neck Exam Neck exam: Negative for: Lymphadenopathy, Thyromegaly - Respiratory Exam Respiratory Exam: Clear to Auscultation Bilateral. absent: Rales - Cardiovascular Exam Cardiovascular Exam: REGULAR RHYTHM, Systolic Murmur - GI/Abdominal Exam GI & Abdominal Exam: Tenderness. absent: Guarding, Organomegaly, Rebound - Rectal Exam Rectal Exam: Deferred - Extremities Exam Extremities exam: Positive for: normal capillary refill. Negative for: calf tenderness - Neurological Exam Neurological exam: Alert, Oriented x3 - Psychiatric Exam Psychiatric exam: Anxious - Skin Skin Exam: Dry Results - Vital Signs Recent Vital Signs: Last Vital Signs Temp 98.9 F 08/03/17 08:15 Pulse 90 08/03/17 08:15 Resp 19 08/03/17 08:15 BP 142/85 08/03/17 08:15 Pulse Ox 95 08/03/17 08:15 - Labs Result Diagrams: 08/02/17 20:00 08/02/17 20:00 Labs: Laboratory Results - last 24 hr 08/02/17 08/02/17 08/02/17 20:00 20:00 21:16 WBC 10.3 RBC 4.91 Hgb 14.5 D Hct 43.7 MCV 89.1 MCH 29.5 MCHC 33.2 RDW 14.8 H Plt Count 296 MPV 9.3 Neut % (Auto) 74.7 Lymph % (Auto) 20.1 [place] % (Auto) 4.7 Eos % (Auto) 0.2 Baso % (Auto) 0.3 Neut # 7.7 H Lymph # 2.1 [place] # 0.5 Eos # 0.0 Baso # 0.0 Sodium 140 Potassium 4.2 Chloride 104 Carbon Dioxide 22 Anion Gap 18 BUN 17 Creatinine 1.2 Est GFR ( Amer) 53 Est GFR (Non-Af Amer) 44 Random Glucose 104 Calcium 9.5 Total Bilirubin 0.4 AST 23 ALT 33 Alkaline Phosphatase 87 Total Protein 8.3 Albumin 4.7 Globulin 3.6 Albumin/Globulin Ratio 1.3 Lipase 73 Urine Color Yellow Urine Clarity Clear Urine pH 5.0 Ur Specific [place] 1.020 Urine Protein 1+ H Urine Glucose (UA) Normal Urine Ketones Negative Urine Blood Negative Urine Nitrate Negative Urine Bilirubin Negative Urine Urobilinogen Normal Ur Leukocyte Esterase Neg Urine WBC (Auto) 3 Urine RBC (Auto) 1 Ur Squamous Epith Cells 2 Assessment & Plan (1) Small bowel obstruction Status: Acute Comment: recurent, for surgery. at her optimal state , acceptable risk for cardiac complication from surgery (2) CHF (congestive heart failure), NYHA class II Status: Chronic (3) Diabetes 1.5, managed as type 2 Status: Chronic Decision To Admit - Pt Status Changed To: Hospital Disposition Of: Inpatient - Admit Certification Admit to Inpatient:: After my assessment, the patient will require hospitalization for at least two midnights. This is because of the severity of symptoms shown, intensity of services needed, and/or the medical risk in this patient being treated as an outpatient. - InPatient: Physician Admission Certification:: yes - . Bed Request Type: Regular
[2017-08-03] MEDS: Metoprolol Succinate 100 mg XL Tab PO SCH (18:00)
[2017-08-04 05:29] LABS: BASO # 0.1 K/uL (0.0-0.2); BASO % 0.6 % (0.0-2.0); EOS # 0.1 K/uL (0.0-0.7); HEMATOCRIT 39.5 % (34.0-47.0); LYMPH # 2.4 K/uL (1.0-4.3); LYMPH % 26.5 % (20.0-40.0); MEAN CELL VOLUME 89.3 fL (81.0-99.0); MEAN CORPUSCULAR HEMOGLOBIN 29.3 pg (27.0-31.0); MEAN CORPUSCULAR HGB CONC 32.9 g/dL (33.0-37.0); MEAN PLATELET VOLUME 8.3 fL (7.2-11.7); MONO # 0.6 K/uL (0.0-0.8); MONO % 6.5 % (0.0-10.0); RED CELL DISTRIBUTION WIDTH 14.6 % (11.5-14.5); WHITE BLOOD COUNT 9.2 K/uL (4.8-10.8)
[2017-08-04 05:36] LABS: INR 1.1
[2017-08-04 05:38] LABS: POTASSIUM 4.2 mmol/L (3.6-5.2)
[2017-08-04 05:41] LABS: ALB/GLOB RATIO 1.5 (1.0-2.1); BILIRUBIN,TOTAL 0.6 mg/dL (0.2-1.3); TOTAL PROTEIN 6.4 g/dL (6.3-8.3)
[2017-08-04 05:42] LABS: CALCIUM 8.7 mg/dl (8.6-10.4)
[2017-08-04] MEDS ORDERED: Midazolam 2 MG/2 ML VIAL ONE (08:09)
[2017-08-04] MEDS ORDERED: ceFAZolin IV 2 gm in Dextrose 1 GM/50 ML BAG IVPB ONE (08:18)
[2017-08-04] MEDS ORDERED: metroNIDAZOLE IV 500 mg/100 ml 500 MG/100 ML BAG ONE (08:19)
[2017-08-04] MEDS ORDERED: Lactated Ringer's 1,000 ML IV ONE ×2 (08:30→12:15)
[2017-08-04] MEDS ORDERED: MILRINONE IV ONE ×2 (08:30→09:00)
[2017-08-04] MEDS ORDERED: DEXTROSE 5% IV ONE (08:30)
[2017-08-04] MEDS ORDERED: Norepinephrine 8 MG in Sodium Chloride 0.9% 242 ML IV PRN (08:30)
[2017-08-04] MEDS ORDERED: WATER IV ONE (08:30)
[2017-08-04] MEDS ORDERED: WATER FOR INJECTION IV ONE (09:00)
[2017-08-04] MEDS ORDERED: Etomidate 20 mg/10ml Inj IV ONE (09:39)
--- NOTE | 2017-08-04 10:41 | PCM.SURG1 ---
Surgeon's Initial Post Op Note - Surgeon's Notes Surgeon: Maggi Visual Specialist: Tim PGY3, Brock PGY1 Type of Anesthesia: General Endo Pre-Operative Diagnosis: SBO Operative Findings: Internal hernia and adhesions Post-Operative Diagnosis: SBO 2/2 internal hernia and adhesions Operation Performed: ex-lap w. JUAQUIN, small bowel resection w. primary anastomosis Specimen/Specimens Removed: small bowel Estimated Blood Loss: EBL {In ML}: 50 Blood Products Given: N/A Drains Used: No Drains Post-Op Condition: Good Date of Surgery/Procedure: 08/04/17 Time of Surgery/Procedure: 10:41
[2017-08-04] MEDS ORDERED: DiphenhydrAMINE 50 mg/ml Inj IVP PRN (10:47)
[2017-08-04] MEDS ORDERED: HYDROmorphone 0.5 mg/0.5 ml ISec IVP PRN (10:47)
[2017-08-04] MEDS ORDERED: Morphine Monoject Barrel PCA 1mg/ml IV PRN (10:47)
[2017-08-04] MEDS ORDERED: HYDROmorphone 0.5 mg/0.5 ml ISec IVP STA (11:03)
[2017-08-04] MEDS: Metoprolol Succinate 100 mg XL Tab PO SCH (12:01)
[2017-08-04] MEDS: Lactated Ringer's 1,000 ML IV SCH ×2 (12:01→12:25)
[2017-08-04] MEDS: Acetaminophen IV 1,000 MG in Premixed IV 1 EA IV SCH ×2 (12:40→19:00)
--- NOTE | 2017-08-04 15:37 | RAD ---
HISTORY: s/p R IJ COMPARISON: Comparison chest dated in 07/2020 FINDINGS: Re- demonstrated is in situ right IJ central venous line with tip in the SVC. NGT is present, the tip of which appears to lie left upper quadrant of the abdomen. LUNGS: Poor inspiration with low lung volumes, crowded bronchovascular markings and right basilar atelectasis. Note that the left lung base is partially obscured by at least 2 overlying cardiac defibrillator pads PLEURA: No significant pleural effusion identified, no pneumothorax apparent. CARDIOVASCULAR: Cardiomegaly OSSEOUS STRUCTURES: No significant abnormalities. VISUALIZED UPPER ABDOMEN: Normal. OTHER FINDINGS: None. IMPRESSION: NGT and right subclavian central line as above. Poor inspiration with low lung volumes, crowded bronchovascular markings and right basilar atelectasis. Note that the left lung base is partially obscured by at least 2 overlying cardiac defibrillator pads Cardiomegaly.
--- NOTE | 2017-08-04 17:14 | CP.PCM.CON ---
History of Present Illness - History of Present Illness History of Present Illness: 71yo M. PMHx stress-induced cardiomyopathy, DM type 2. p/w abdominal pain secondary to obstruction. s/p ex-lap with SBR with end-to-end anastamosis with JUAQUIN. Review of Systems - Review of Systems All systems: reviewed and no additional remarkable complaints except - Gastrointestinal Gastrointestinal: Abdominal Pain Past Patient History - Infectious Disease Hx of Infectious Diseases: None - Past Medical History & Family History Past Medical History?: Yes - Past Social History Smoking Status: Never Smoked - CARDIAC Hx Cardiac Disorders: Yes Hx Atrial Fibrillation: No Hx Cardia Arrhythmia: No Hx Congestive Heart Failure: Yes Hx Hypercholesterolemia: No Hx Hypertension: Yes Hx Mitral Valve Prolapse: No Hx Pacemaker: No Hx Peripheral Edema: No - PULMONARY Hx Respiratory Disorders: No - NEUROLOGICAL Hx Neurological Disorder: No - HEENT Hx HEENT Problems: No - RENAL Hx Chronic Kidney Disease: No - ENDOCRINE/METABOLIC Hx Endocrine Disorders: Yes Other/Comment: Borderline diabetes - HEMATOLOGICAL/ONCOLOGICAL Hx Blood Disorders: No - INTEGUMENTARY Hx Dermatological Problems: No - MUSCULOSKELETAL/RHEUMATOLOGICAL Hx Musculoskeletal Disorders: Yes Hx Arthritis: Yes (HANDS; RIGHT ARM) Hx Falls: No Hx Fractures: No Hx Osteoporosis: No Hx Rheumatoid Arthritis: No - GASTROINTESTINAL Hx Gastrointestinal Disorders: Yes Hx Crohn's Disease: No Hx Diverticulitis: Yes Hx Gall Bladder Disease: No Hx Gastritis: No Hx Pancreatitis: Yes - GENITOURINARY/GYNECOLOGICAL Hx Genitourinary Disorders: No - PSYCHIATRIC Hx Psychophysiologic Disorder: No Hx Substance Use: No - SURGICAL HISTORY Hx Surgeries: No - ANESTHESIA Hx Anesthesia: Yes Hx Anesthesia Reactions: No Hx Malignant Hyperthermia: No Meds Allergies/Adverse Reactions: Allergies Allergy/AdvReac Type Severity Reaction Status Date / Time enalaprilat [From Vasotec] Allergy RASH Verified 08/02/17 18:33 hydrochlorothiazide Allergy RASH Verified 08/02/17 18:33 - Medications Medications: Current Medications Heparin Sodium (Porcine) (Heparin) 5,000 units SC Q8 [facility] Norepinephrine Bitartrate 8 mg (/ Sodium Chloride) 250 mls @ 15 mls/hr IV .[id number] PRN; 8 MCG/MIN PRN Reason: Protocol Acetaminophen 1,000 mg/ (Miscellaneous) 100 mls @ 400 mls/hr IV Q6 [facility] Stop: 08/05/17 06:14 Last Admin: 08/04/17 12:40 Dose: 400 mls/hr Lactated Ringer's (Lactated Ringer's) 1,000 mls @ 75 mls/hr IV .[id number] [facility] Last Admin: 08/04/17 12:25 Dose: 75 mls/hr Losartan Potassium (Cozaar) 100 mg PO DAILY [facility] Last Admin: 08/04/17 12:00 Dose: Not Given Metoprolol Succinate (Toprol Xl) 100 mg PO DAILY [facility] Last Admin: 08/04/17 12:01 Dose: Not Given Morphine Sulfate/Sodium Chloride (Morphine Dredge Pipeman Monoject Barrel) 24 mg IV Q4H PRN; Protocol PRN Reason: Pain, severe (8-10) Stop: 08/05/17 10:48 Last Admin: 08/04/17 12:25 Dose: 24 mg Ondansetron HCl (Zofran Inj) 4 mg IVP Q4 PRN PRN Reason: Nausea/Vomiting Last Admin: 08/03/17 07:55 Dose: 4 mg Ondansetron HCl (Zofran Inj) 4 mg IVP ONCE PRN PRN Reason: Nausea/Vomiting Last Admin: 08/04/17 11:45 Dose: 4 mg Pantoprazole Sodium (Protonix Inj) 40 mg IVP DAILY [facility] Last Admin: 08/04/17 12:01 Dose: Not Given Physical Exam - Head Exam Head Exam: ATRAUMATIC, NORMAL INSPECTION, NORMOCEPHALIC - Eye Exam Eye Exam: EOMI, Normal appearance, PERRL - ENT Exam ENT Exam: Mucous Membranes Moist, Normal Exam - Neck Exam Neck exam: Positive for: Normal Inspection - Respiratory Exam Respiratory Exam: Clear to Auscultation Bilateral, NORMAL BREATHING PATTERN - Cardiovascular Exam Cardiovascular Exam: REGULAR RHYTHM - GI/Abdominal Exam GI & Abdominal Exam: Hypoactive Bowel Sounds, Tenderness - Neurological Exam Neurological exam: Alert, Oriented x3 - Psychiatric Exam Psychiatric exam: Normal Affect, Normal Mood Results - Vital Signs Recent Vital Signs: Last Vital Signs Temp 97.6 F 08/04/17 12:02 Pulse 81 08/04/17 15:20 Resp 18 08/04/17 15:20 BP 98/49 L 08/04/17 14:30 Pulse Ox 100 08/04/17 15:20 - Labs Result Diagrams: 08/04/17 05:26 08/04/17 05:26 Labs: Laboratory Results - last 24 hr 08/03/17 08/03/17 08/04/17 17:23 21:08 05:26 WBC 9.2 RBC 4.42 Hgb 13.0 Hct 39.5 MCV 89.3 MCH 29.3 MCHC 32.9 L RDW 14.6 H Plt Count 238 MPV 8.3 Neut % (Auto) 65.4 Lymph % (Auto) 26.5 [place] % (Auto) 6.5 Eos % (Auto) 1.0 Baso % (Auto) 0.6 Neut # 6.0 Lymph # 2.4 [place] # 0.6 Eos # 0.1 Baso # 0.1 PT INR APTT Sodium Potassium Chloride Carbon Dioxide Anion Gap BUN Creatinine Est GFR ( Amer) Est GFR (Non-Af Amer) POC Glucose (mg/dL) 92 Random Glucose Calcium Total Bilirubin AST ALT Alkaline Phosphatase Total Protein Albumin Globulin Albumin/Globulin Ratio Blood Type O POSITIVE Antibody Screen Negative 08/04/17 08/04/17 05:26 05:26 WBC RBC Hgb Hct MCV MCH MCHC RDW Plt Count MPV Neut % (Auto) Lymph % (Auto) [place] % (Auto) Eos % (Auto) Baso % (Auto) Neut # Lymph # [place] # Eos # Baso # PT 11.9 INR 1.1 APTT 30 Sodium 138 Potassium 4.2 Chloride 105 Carbon Dioxide 23 Anion Gap 14 BUN 13 Creatinine 1.2 Est GFR ( Amer) 53 Est GFR (Non-Af Amer) 44 POC Glucose (mg/dL) Random Glucose 88 Calcium 8.7 Total Bilirubin 0.6 AST 17 ALT 33 Alkaline Phosphatase 67 Total Protein 6.4 Albumin 3.8 Globulin 2.5 Albumin/Globulin Ratio 1.5 Blood Type Antibody Screen Assessment & Plan (1) Small bowel obstruction Assessment and Plan: 71yo M. PMHx stress-induced cardiomyopathy, DM type 2. p/w abdominal pain secondary to obstruction. s/p ex-lap with SBR with end-to-end anastamosis with JUAQUIN. Neuro: alert and oriented x 3, pain control with dilaudid prn Pulm: no acute issues, breathing spontaneously on nasal canula CV: hemodynamically stable Hem: no acute issues Renal: urine output wnl, will monitor Endo: DM type, short acting insulin sliding scale for coverage. GI: NPO ID: no acute issues. DVT proph - heparin sq GI proph - protonix white for strict I/O's during acute illness Code status - full code Critical Care Time spent 35 minutes Multi-disciplinary rounds were performed with house staff, nursing, speech therapy, respiratory therapy, pharmacy and nutrition with integrated input from the primary team/attending and other consulting services. The documented time is cumulative and includes review of patient data/exams/labs/chart review and examination of the patient on rounds and throughout the day; time is exclusive of any procedures or teaching time. Status: Acute
--- NOTE | 2017-08-04 22:11 | OP ---
PROCEDURE DATE: 08/03/2017 PREOPERATIVE DIAGNOSIS: Small bowel obstruction. POSTOPERATIVE DIAGNOSIS: Small bowel obstruction. PROCEDURES CARRIED OUT: 1. Exploratory laparotomy. 2. Lysis of adhesions. 3. Small bowel resection with anastomosis. SURGEON: Ed Tay Jr., MD. PAINT AND TABLE EDGER: Dr. Dumont. ANESTHESIOLOGIST: Dr. Gupta. INDICATIONS: Patient is an elderly woman who has had multiple admissions to the hospital for small bowel obstruction, recently we attempted to operate on her for cardiac complications preoperatively that prevented us from doing so. Now, she is readmitted with small bowel obstruction, which is partially improved this morning. Nonetheless, based on her history, I recommended that she undergo an exploration. OPERATIVE FINDINGS: General abdominal exploration was unremarkable. There was a previous hysterectomy. I cannot identify any ovaries. The gallbladder did not have gallstones, liver appeared normal. The palpable portions of the colon appeared normal. There was a band of omentum that wrapped around the intestines where the focal small bowel obstruction. This was quite difficult to lyse as it was adhesed to the anterior abdominal wall. We were able to lyse it without entering the small bowel, however, based upon its beaten-up appearance and focalness, I resected this segment of the bowel as well as dividing the adhesive bands, which were present, which were large loops of omentum. After this had been done, we then checked the bowel again. There was no evidence of any injury. We then placed the bowel back into the peritoneal cavity, brought the omentum down, closed with running sutures of Novafil and PDS and closed the skin with skin clips. Blood loss is 50 mL. Operation carried out, exploratory laparotomy, lysis of adhesions, small bowel resection with anastomosis. Basic finding was of an internal hernia secondary to very thick omental adhesive bands. Ed Tay Jr., MD MTDConstantino
[2017-08-05] MEDS: Acetaminophen IV 1,000 MG in Premixed IV 1 EA IV SCH ×2 (06:00)
[2017-08-05] MEDS: (Novolog) Insulin Aspart, Recombinant 100 u/ml 10 ml vial SC SCH ×4 (06:19→17:58)
[2017-08-05 06:38] LABS: HEMATOCRIT 38.3 % (34.0-47.0); MEAN CELL VOLUME 90.3 fL (81.0-99.0); MEAN CORPUSCULAR HEMOGLOBIN 29.7 pg (27.0-31.0); MEAN CORPUSCULAR HGB CONC 32.9 g/dL (33.0-37.0); RED CELL DISTRIBUTION WIDTH 14.9 % (11.5-14.5)
[2017-08-05 06:58] LABS: CHLORIDE 104 mmol/L (98-107); SODIUM 138 mmol/L (132-148)
[2017-08-05 06:59] LABS: POTASSIUM 4.2 mmol/L (3.6-5.2)
[2017-08-05 07:00] LABS: GFR AFRICAN-AMERICAN > 60
[2017-08-05 07:01] LABS: ALKALINE PHOSPHATASE 59 U/L (38-126); ALT/SGPT 33 U/L (9-52); AST/SGOT 26 U/L (14-36); BILIRUBIN,TOTAL 0.7 mg/dL (0.2-1.3); BLOOD UREA NITROGEN 11 mg/dL (7-17); CARBON DIOXIDE 25 mmol/L (22-30); GLUCOSE,RANDOM 89 mg/dL (65-105); TOTAL PROTEIN 6.7 g/dL (6.3-8.3)
[2017-08-05 07:02] LABS: CALCIUM 8.9 mg/dl (8.6-10.4); MAGNESIUM 1.6 mg/dL (1.6-2.3)
--- NOTE | 2017-08-05 08:59 | CP.PCM.PN ---
Subjective - Date & Time of Evaluation Date of Evaluation: 08/05/17 Time of Evaluation: 08:59 - Subjective Subjective: Surgery: Dr. Mckeon Pt seen and examined. Resting comfortably in chair. Pt is doing well. She states that her pain is controlled. No N/V. No flatus. She would like to drink water. Objective - Vital Signs/Intake and Output Vital Signs (last 24 hours): Temp Pulse Resp BP Pulse Ox 98.6 F 90 16 118/65 100 08/05/17 08:00 08/05/17 08:00 08/05/17 08:00 08/05/17 07:55 08/05/17 08:00 Intake and Output: 08/05/17 08/05/17 06:59 18:59 Intake Total 950 150 Output Total 504 55 Balance 446 95 - Medications Medications: Current Medications Heparin Sodium (Porcine) (Heparin) 5,000 units SC Q12 [facility] Last Admin: 08/04/17 21:46 Dose: 5,000 units Norepinephrine Bitartrate 8 mg (/ Sodium Chloride) 250 mls @ 15 mls/hr IV .[id number] PRN; 8 MCG/MIN PRN Reason: Protocol Lactated Ringer's (Lactated Ringer's) 1,000 mls @ 75 mls/hr IV .[id number] [facility] Last Admin: 08/05/17 00:00 Dose: 75 mls/hr Insulin Aspart (Novolog) 0 unit SC Q6H [facility] PRN Reason: Protocol Last Admin: 08/05/17 06:19 Dose: Not Given Losartan Potassium (Cozaar) 100 mg PO DAILY [facility] Last Admin: 08/04/17 12:00 Dose: Not Given Metoprolol Succinate (Toprol Xl) 100 mg PO DAILY [facility] Last Admin: 08/04/17 12:01 Dose: Not Given Morphine Sulfate/Sodium Chloride (Morphine Performance Improvement Director Monoject Barrel) 24 mg IV Q4H PRN; Protocol PRN Reason: Pain, severe (8-10) Stop: 08/05/17 10:48 Last Admin: 08/04/17 12:25 Dose: 24 mg Ondansetron HCl (Zofran Inj) 4 mg IVP Q4 PRN PRN Reason: Nausea/Vomiting Last Admin: 08/05/17 08:02 Dose: 4 mg Ondansetron HCl (Zofran Inj) 4 mg IVP ONCE PRN PRN Reason: Nausea/Vomiting Last Admin: 08/04/17 11:45 Dose: 4 mg Pantoprazole Sodium (Protonix Inj) 40 mg IVP DAILY [facility] Last Admin: 08/04/17 12:01 Dose: Not Given - Labs Labs: 08/05/17 06:32 08/05/17 06:32 PT 11.9 SECONDS (9.7-12.2) 08/04/17 05:26 INR 1.1 08/04/17 05:26 APTT 30 SECONDS (21-34) 08/04/17 05:26 - Constitutional Appears: Non-toxic, No Acute Distress - Head Exam Head Exam: ATRAUMATIC, NORMOCEPHALIC - Eye Exam Eye Exam: EOMI. absent: Scleral icterus - ENT Exam ENT Exam: Mucous Membranes Moist - Neck Exam Neck Exam: Full ROM - Respiratory Exam Respiratory Exam: NORMAL BREATHING PATTERN. absent: Accessory Muscle Use, Respiratory Distress - GI/Abdominal Exam GI & Abdominal Exam: Soft, Tenderness (mild). absent: Distended, Firm, Guarding , Rigid, Rebound - Extremities Exam Extremities Exam: absent: Calf Tenderness, Pedal Edema - Neurological Exam Neurological Exam: Alert, Awake, Oriented x3 - Psychiatric Exam Psychiatric exam: Normal Affect, Normal Mood Assessment and Plan - Assessment and Plan (Free Text) Assessment: 72F w. SBO, s/p ex-lap w. reduction of internal hernia and small bowel resection w. primary anastomosis -D/C NGT and white -will start CLD -Monitor bowel fxn and advance diet as tolerated -encourage OOB, IS, and PT -will start heparin later today -will d/w attending Tim PGY3
[2017-08-05] MEDS ORDERED: Influenza Vaccine 60 mcg/0.5 mL SYR (4YR UP) IM ONE (10:00)
[2017-08-05] MEDS: Metoprolol Succinate 100 mg XL Tab PO SCH (10:11)
[2017-08-05] MEDS ORDERED: HYDROmorphone 1 mg/ml ISec IVP PRN (14:02)
[2017-08-05] MEDS ORDERED: HYDROmorphone 0.5 mg/0.5 ml ISec IVP PRN (14:02)
[2017-08-05] MEDS: Lactated Ringer's 1,000 ML IV SCH ×2 (15:22)
--- NOTE | 2017-08-05 15:35 | CP.PCM.PN ---
Subjective - Date & Time of Evaluation Date of Evaluation: 08/05/17 Time of Evaluation: 14:00 - Subjective Subjective: Had surgery did well, with adhesions, observe fluid, stable hemodynamically at this time, follow-up with surgery Objective - Vital Signs/Intake and Output Vital Signs (last 24 hours): Temp Pulse Resp BP Pulse Ox 98.5 F 88 20 121/60 99 08/05/17 12:00 08/05/17 15:15 08/05/17 15:15 08/05/17 15:15 08/05/17 15:15 Intake and Output: 08/05/17 08/05/17 06:59 18:59 Intake Total 950 1375 Output Total 504 985 Balance 446 390 - Medications Medications: Current Medications Heparin Sodium (Porcine) (Heparin) 5,000 units SC Q12 [facility] Last Admin: 08/05/17 09:16 Dose: Not Given Hydromorphone HCl (Dilaudid) 1 mg IVP Q3 PRN PRN Reason: Pain, severe (8-10) Hydromorphone HCl (Dilaudid) 0.5 mg IVP Q3 PRN PRN Reason: Pain, moderate (4-7) Norepinephrine Bitartrate 8 mg (/ Sodium Chloride) 250 mls @ 15 mls/hr IV .[id number] PRN; 8 MCG/MIN PRN Reason: Protocol Lactated Ringer's (Lactated Ringer's) 1,000 mls @ 75 mls/hr IV .[id number] [facility] Last Admin: 08/05/17 15:22 Dose: 75 mls/hr Insulin Aspart (Novolog) 0 unit SC Q6H [facility] PRN Reason: Protocol Last Admin: 08/05/17 11:56 Dose: Not Given Losartan Potassium (Cozaar) 100 mg PO DAILY [facility] Last Admin: 08/05/17 12:23 Dose: 100 mg Metoprolol Succinate (Toprol Xl) 100 mg PO DAILY [facility] Last Admin: 08/05/17 10:11 Dose: 100 mg Ondansetron HCl (Zofran Inj) 4 mg IVP Q4 PRN PRN Reason: Nausea/Vomiting Last Admin: 08/05/17 08:02 Dose: 4 mg Ondansetron HCl (Zofran Inj) 4 mg IVP ONCE PRN PRN Reason: Nausea/Vomiting Last Admin: 08/04/17 11:45 Dose: 4 mg Oxycodone/Acetaminophen (Percocet 5/325 Mg Tab) 1 tab PO Q4H PRN PRN Reason: Pain, Mild (1-3) Stop: 08/08/17 14:04 Pantoprazole Sodium (Protonix Inj) 40 mg IVP DAILY [facility] Last Admin: 08/05/17 09:16 Dose: 40 mg - Labs Labs: 08/05/17 06:32 08/05/17 06:32 PT 11.9 SECONDS (9.7-12.2) 08/04/17 05:26 INR 1.1 08/04/17 05:26 APTT 30 SECONDS (21-34) 08/04/17 05:26 - Constitutional Appears: Non-toxic - Head Exam Head Exam: ATRAUMATIC - Eye Exam Eye Exam: EOMI - ENT Exam ENT Exam: Mucous Membranes Moist - Neck Exam Neck Exam: absent: Lymphadenopathy, Thyromegaly - Respiratory Exam Respiratory Exam: Clear to Ausculation Bilateral. absent: Rales - Cardiovascular Exam Cardiovascular Exam: REGULAR RHYTHM, Murmur - GI/Abdominal Exam GI & Abdominal Exam: absent: Normal Bowel Sounds, Organomegaly - Rectal Exam Rectal Exam: Deferred - Extremities Exam Extremities Exam: Normal Capillary Refill. absent: Calf Tenderness - Neurological Exam Neurological Exam: Alert, Oriented x3 - Psychiatric Exam Psychiatric exam: Anxious - Skin Skin Exam: Dry Assessment and Plan (1) Small bowel obstruction Status: Acute (2) CHF (congestive heart failure), NYHA class II Status: Chronic (3) Diabetes 1.5, managed as type 2 Status: Chronic
--- NOTE | 2017-08-05 16:21 | CP.PCM.PN ---
Subjective - Date & Time of Evaluation Date of Evaluation: 08/05/17 Time of Evaluation: 16:21 - Subjective Subjective: stable and improving OR findings reviewed with patient Objective - Vital Signs/Intake and Output Vital Signs (last 24 hours): Temp Pulse Resp BP Pulse Ox 98.5 F 88 20 121/60 99 08/05/17 12:00 08/05/17 15:15 08/05/17 15:15 08/05/17 15:15 08/05/17 15:15 Intake and Output: 08/05/17 08/05/17 06:59 18:59 Intake Total 950 1375 Output Total 504 985 Balance 446 390 - Medications Medications: Current Medications Heparin Sodium (Porcine) (Heparin) 5,000 units SC Q12 [facility] Last Admin: 08/05/17 09:16 Dose: Not Given Hydromorphone HCl (Dilaudid) 1 mg IVP Q3 PRN PRN Reason: Pain, severe (8-10) Last Admin: 08/05/17 15:53 Dose: 1 mg Hydromorphone HCl (Dilaudid) 0.5 mg IVP Q3 PRN PRN Reason: Pain, moderate (4-7) Norepinephrine Bitartrate 8 mg (/ Sodium Chloride) 250 mls @ 15 mls/hr IV .[id number] PRN; 8 MCG/MIN PRN Reason: Protocol Lactated Ringer's (Lactated Ringer's) 1,000 mls @ 75 mls/hr IV .[id number] [facility] Last Admin: 08/05/17 15:22 Dose: 75 mls/hr Insulin Aspart (Novolog) 0 unit SC Q6H [facility] PRN Reason: Protocol Last Admin: 08/05/17 11:56 Dose: Not Given Losartan Potassium (Cozaar) 100 mg PO DAILY [facility] Last Admin: 08/05/17 12:23 Dose: 100 mg Metoprolol Succinate (Toprol Xl) 100 mg PO DAILY [facility] Last Admin: 08/05/17 10:11 Dose: 100 mg Ondansetron HCl (Zofran Inj) 4 mg IVP Q4 PRN PRN Reason: Nausea/Vomiting Last Admin: 08/05/17 08:02 Dose: 4 mg Ondansetron HCl (Zofran Inj) 4 mg IVP ONCE PRN PRN Reason: Nausea/Vomiting Last Admin: 08/04/17 11:45 Dose: 4 mg Oxycodone/Acetaminophen (Percocet 5/325 Mg Tab) 1 tab PO Q4H PRN PRN Reason: Pain, Mild (1-3) Stop: 08/08/17 14:04 Pantoprazole Sodium (Protonix Inj) 40 mg IVP DAILY [facility] Last Admin: 08/05/17 09:16 Dose: 40 mg - Labs Labs: 08/05/17 06:32 08/05/17 06:32 PT 11.9 SECONDS (9.7-12.2) 08/04/17 05:26 INR 1.1 08/04/17 05:26 APTT 30 SECONDS (21-34) 08/04/17 05:26
[2017-08-06] MEDS: Oxycodone/Acetaminophen 5/325 mg Tab PO PRN (00:07)
[2017-08-06] MEDS: Lactated Ringer's 1,000 ML IV SCH ×2 (04:00→17:51)
[2017-08-06] MEDS: (Novolog) Insulin Aspart, Recombinant 100 u/ml 10 ml vial SC SCH ×4 (05:48→17:51)
[2017-08-06] MEDS: Pantoprazole 40 mg EC Tab PO SCH (09:29)
[2017-08-06] MEDS: Metoprolol Succinate 100 mg XL Tab PO SCH (10:55)
[2017-08-06] MEDS: HYDROmorphone 0.5 mg/0.5 ml ISec IVP PRN ×2 (11:11→19:48)
--- NOTE | 2017-08-06 13:21 | CP.PCM.PN ---
Subjective - Date & Time of Evaluation Date of Evaluation: 08/06/17 Time of Evaluation: 13:00 - Subjective Subjective: Stable postop observe for heart failure Objective - Vital Signs/Intake and Output Vital Signs (last 24 hours): Temp Pulse Resp BP Pulse Ox 98.7 F 86 29 H 119/65 93 L 08/06/17 12:00 08/06/17 12:50 08/06/17 12:50 08/06/17 12:51 08/06/17 12:40 Intake and Output: 08/06/17 08/06/17 06:59 18:59 Intake Total 1450 625 Output Total 850 500 Balance 600 125 - Medications Medications: Current Medications Heparin Sodium (Porcine) (Heparin) 5,000 units SC Q12 [facility] Last Admin: 08/06/17 09:29 Dose: Not Given Hydromorphone HCl (Dilaudid) 1 mg IVP Q3 PRN PRN Reason: Pain, severe (8-10) Last Admin: 08/05/17 15:53 Dose: 1 mg Hydromorphone HCl (Dilaudid) 0.5 mg IVP Q3 PRN PRN Reason: Pain, moderate (4-7) Last Admin: 08/06/17 11:11 Dose: 0.5 mg Norepinephrine Bitartrate 8 mg (/ Sodium Chloride) 250 mls @ 15 mls/hr IV .[id number] PRN; 8 MCG/MIN PRN Reason: Protocol Lactated Ringer's (Lactated Ringer's) 1,000 mls @ 75 mls/hr IV .[id number] [facility] Last Admin: 08/06/17 04:00 Dose: Not Given Insulin Aspart (Novolog) 0 unit SC Q6H [facility] PRN Reason: Protocol Last Admin: 08/06/17 11:57 Dose: Not Given Losartan Potassium (Cozaar) 100 mg PO DAILY [facility] Last Admin: 08/06/17 11:06 Dose: 100 mg Metoprolol Succinate (Toprol Xl) 100 mg PO DAILY [facility] Last Admin: 08/06/17 10:55 Dose: 100 mg Ondansetron HCl (Zofran Inj) 4 mg IVP Q4 PRN PRN Reason: Nausea/Vomiting Last Admin: 08/05/17 16:39 Dose: 4 mg Ondansetron HCl (Zofran Inj) 4 mg IVP ONCE PRN PRN Reason: Nausea/Vomiting Last Admin: 08/04/17 11:45 Dose: 4 mg Oxycodone/Acetaminophen (Percocet 5/325 Mg Tab) 1 tab PO Q4H PRN PRN Reason: Pain, Mild (1-3) Stop: 08/08/17 14:04 Last Admin: 08/06/17 00:07 Dose: 1 tab Pantoprazole Sodium (Protonix Ec Tab) 40 mg PO DAILY [facility] Last Admin: 08/06/17 09:29 Dose: 40 mg - Labs Labs: 08/05/17 06:32 08/05/17 06:32 PT 11.9 SECONDS (9.7-12.2) 08/04/17 05:26 INR 1.1 08/04/17 05:26 APTT 30 SECONDS (21-34) 08/04/17 05:26 - Constitutional Appears: Non-toxic - Head Exam Head Exam: ATRAUMATIC - Eye Exam Eye Exam: EOMI - ENT Exam ENT Exam: Mucous Membranes Moist - Neck Exam Neck Exam: absent: Lymphadenopathy, Thyromegaly - Respiratory Exam Respiratory Exam: Clear to Ausculation Bilateral. absent: Rales - Cardiovascular Exam Cardiovascular Exam: REGULAR RHYTHM, Murmur - GI/Abdominal Exam GI & Abdominal Exam: Tenderness, Hypoactive Bowel Sounds - Rectal Exam Rectal Exam: Deferred - Extremities Exam Extremities Exam: Normal Capillary Refill. absent: Calf Tenderness - Neurological Exam Neurological Exam: Alert, Oriented x3 - Psychiatric Exam Psychiatric exam: Normal Mood - Skin Skin Exam: Dry Assessment and Plan (1) Small bowel obstruction Status: Acute (2) CHF (congestive heart failure), NYHA class II Status: Chronic (3) Diabetes 1.5, managed as type 2 Status: Chronic
--- NOTE | 2017-08-06 13:46 | CP.PCM.PN ---
Subjective - Date & Time of Evaluation Date of Evaluation: 08/06/17 Time of Evaluation: 13:43 - Subjective Subjective: Surgery: Dr. Tay Pt seen and examined. Resting comfortably in chair. Pt states that pain is controlled. She is tolerating CLD. No N/V. +Eructation. No flatus/BM. Objective - Vital Signs/Intake and Output Vital Signs (last 24 hours): Temp Pulse Resp BP Pulse Ox 97.9 F 80 20 122/67 96 08/06/17 13:25 08/06/17 13:25 08/06/17 13:25 08/06/17 13:25 08/06/17 13:25 Intake and Output: 08/06/17 08/06/17 06:59 18:59 Intake Total 1450 625 Output Total 850 500 Balance 600 125 - Medications Medications: Current Medications Heparin Sodium (Porcine) (Heparin) 5,000 units SC Q12 [facility] Last Admin: 08/06/17 09:29 Dose: Not Given Hydromorphone HCl (Dilaudid) 1 mg IVP Q3 PRN PRN Reason: Pain, severe (8-10) Last Admin: 08/05/17 15:53 Dose: 1 mg Hydromorphone HCl (Dilaudid) 0.5 mg IVP Q3 PRN PRN Reason: Pain, moderate (4-7) Last Admin: 08/06/17 11:11 Dose: 0.5 mg Norepinephrine Bitartrate 8 mg (/ Sodium Chloride) 250 mls @ 15 mls/hr IV .[id number] PRN; 8 MCG/MIN PRN Reason: Protocol Lactated Ringer's (Lactated Ringer's) 1,000 mls @ 75 mls/hr IV .[id number] [facility] Last Admin: 08/06/17 04:00 Dose: Not Given Insulin Aspart (Novolog) 0 unit SC Q6H [facility] PRN Reason: Protocol Last Admin: 08/06/17 11:57 Dose: Not Given Losartan Potassium (Cozaar) 100 mg PO DAILY [facility] Last Admin: 08/06/17 11:06 Dose: 100 mg Metoprolol Succinate (Toprol Xl) 100 mg PO DAILY [facility] Last Admin: 08/06/17 10:55 Dose: 100 mg Ondansetron HCl (Zofran Inj) 4 mg IVP Q4 PRN PRN Reason: Nausea/Vomiting Last Admin: 08/05/17 16:39 Dose: 4 mg Ondansetron HCl (Zofran Inj) 4 mg IVP ONCE PRN PRN Reason: Nausea/Vomiting Last Admin: 08/04/17 11:45 Dose: 4 mg Oxycodone/Acetaminophen (Percocet 5/325 Mg Tab) 1 tab PO Q4H PRN PRN Reason: Pain, Mild (1-3) Stop: 08/08/17 14:04 Last Admin: 08/06/17 00:07 Dose: 1 tab Pantoprazole Sodium (Protonix Ec Tab) 40 mg PO DAILY [facility] Last Admin: 08/06/17 09:29 Dose: 40 mg - Labs Labs: 08/05/17 06:32 08/05/17 06:32 PT 11.9 SECONDS (9.7-12.2) 08/04/17 05:26 INR 1.1 08/04/17 05:26 APTT 30 SECONDS (21-34) 08/04/17 05:26 - Constitutional Appears: Non-toxic, No Acute Distress - Head Exam Head Exam: ATRAUMATIC, NORMOCEPHALIC - Eye Exam Eye Exam: EOMI - ENT Exam ENT Exam: Mucous Membranes Moist - Neck Exam Neck Exam: Full ROM - Respiratory Exam Respiratory Exam: NORMAL BREATHING PATTERN. absent: Accessory Muscle Use, Respiratory Distress - GI/Abdominal Exam GI & Abdominal Exam: Soft, Tenderness (mild apollo-incisional ). absent: Distended, Firm, Guarding, Rigid, Rebound - Extremities Exam Extremities Exam: absent: Calf Tenderness, Pedal Edema - Neurological Exam Neurological Exam: Alert, Awake, Oriented x3 Assessment and Plan - Assessment and Plan (Free Text) Assessment: 72F w. SBO, s/p ex-lap w. small bowel resection, POD#2 -c/w CLD, will advance when pt has flatus or BM -pain control -c/w PT -encourage OOB and IS use -d/w attending Geoffreymaitis PGY3
[2017-08-07] MEDS: Lactated Ringer's 1,000 ML IV SCH
[2017-08-07] MEDS: (Novolog) Insulin Aspart, Recombinant 100 u/ml 10 ml vial SC SCH ×3 (00:33→18:24)
--- NOTE | 2017-08-07 09:35 | RAD ---
Chest x-ray single frontal view History: Shortness of breath. Comparison: 08/04/2017 Findings: Moderate to severe venous congestion. Confluent consolidative changes in the left mid to lower lung zone. Cardiomegaly. Small bilateral pleural effusions. Prominent aorta. Degenerative changes in the spine. Impression: Moderate to severe venous congestion. Confluent consolidative changes in the left mid to lower lung zone. Cardiomegaly. Small bilateral pleural effusions. Prominent aorta.
[2017-08-07 10:42] LABS: BASO % 0.5 % (0.0-2.0); EOS # 0.1 K/uL (0.0-0.7); EOS % 1.2 % (0.0-4.0); HEMATOCRIT 36.5 % (34.0-47.0); LYMPH # 1.5 K/uL (1.0-4.3); LYMPH % 15.3 % (20.0-40.0); MEAN CELL VOLUME 89.9 fL (81.0-99.0); MEAN CORPUSCULAR HGB CONC 33.4 g/dL (33.0-37.0); MEAN PLATELET VOLUME 8.7 fL (7.2-11.7); MONO # 0.7 K/uL (0.0-0.8); MONO % 7.6 % (0.0-10.0); RED CELL DISTRIBUTION WIDTH 14.1 % (11.5-14.5); WHITE BLOOD COUNT 9.6 K/uL (4.8-10.8)
[2017-08-07 10:57] LABS: CHLORIDE 103 mmol/L (98-107)
[2017-08-07 10:58] LABS: POTASSIUM 3.7 mmol/L (3.6-5.2); SODIUM 137 mmol/L (132-148)
[2017-08-07 11:00] LABS: GFR AFRICAN-AMERICAN > 60
[2017-08-07 11:01] LABS: ALB/GLOB RATIO 0.9 (1.0-2.1); ALKALINE PHOSPHATASE 69 U/L (38-126); ALT/SGPT 30 U/L (9-52); AST/SGOT 21 U/L (14-36); BILIRUBIN,TOTAL 0.7 mg/dL (0.2-1.3); BLOOD UREA NITROGEN 7 mg/dL (7-17); CALCIUM 9.4 mg/dl (8.6-10.4); CARBON DIOXIDE 27 mmol/L (22-30); GLUCOSE,RANDOM 92 mg/dL (65-105); TOTAL PROTEIN 7.1 g/dL (6.3-8.3)
[2017-08-07] MEDS: Pantoprazole 40 mg EC Tab PO SCH (11:06)
[2017-08-07] MEDS: Enoxaparin 40 mg Syringe SC SCH (11:06)
[2017-08-07] MEDS: Metoprolol Succinate 100 mg XL Tab PO SCH (11:07)
--- NOTE | 2017-08-07 13:03 | CP.PCM.PN ---
Subjective - Date & Time of Evaluation Date of Evaluation: 08/07/17 Time of Evaluation: 13:00 - Subjective Subjective: Ambulating postoperative, observe fluid closely, stop IV fluid give lasix Objective - Vital Signs/Intake and Output Vital Signs (last 24 hours): Temp Pulse Resp BP Pulse Ox 97.9 F 87 21 152/87 H 91 L 08/07/17 08:22 08/07/17 08:22 08/07/17 08:22 08/07/17 08:22 08/07/17 08:22 Intake and Output: 08/07/17 08/07/17 06:59 18:59 Intake Total 600 Balance 600 - Medications Medications: Current Medications Enoxaparin Sodium (Lovenox) 40 mg SC DAILY [facility] Last Admin: 08/07/17 11:06 Dose: 40 mg Furosemide (Lasix) 40 mg PO DAILY [facility] Hydromorphone HCl (Dilaudid) 0.5 mg IVP Q3 PRN PRN Reason: Pain, moderate (4-7) Last Admin: 08/06/17 19:48 Dose: 0.5 mg Insulin Aspart (Novolog) 0 unit SC Q6H [facility] PRN Reason: Protocol Last Admin: 08/07/17 06:02 Dose: Not Given Losartan Potassium (Cozaar) 100 mg PO DAILY [facility] Last Admin: 08/07/17 11:06 Dose: 100 mg Metoprolol Succinate (Toprol Xl) 100 mg PO DAILY [facility] Last Admin: 08/07/17 11:07 Dose: 100 mg Ondansetron HCl (Zofran Inj) 4 mg IVP Q4 PRN PRN Reason: Nausea/Vomiting Last Admin: 08/05/17 16:39 Dose: 4 mg Ondansetron HCl (Zofran Inj) 4 mg IVP ONCE PRN PRN Reason: Nausea/Vomiting Last Admin: 08/04/17 11:45 Dose: 4 mg Oxycodone/Acetaminophen (Percocet 5/325 Mg Tab) 1 tab PO Q4H PRN PRN Reason: Pain, Mild (1-3) Stop: 08/08/17 14:04 Last Admin: 08/06/17 00:07 Dose: 1 tab Pantoprazole Sodium (Protonix Ec Tab) 40 mg PO DAILY [facility] Last Admin: 08/07/17 11:06 Dose: 40 mg - Labs Labs: 08/07/17 10:31 10/24/17 10:31 PT 11.9 SECONDS (9.7-12.2) 08/04/17 05:26 INR 1.1 08/04/17 05:26 APTT 30 SECONDS (21-34) 08/04/17 05:26 - Constitutional Appears: Non-toxic - Head Exam Head Exam: ATRAUMATIC - Eye Exam Eye Exam: EOMI - ENT Exam ENT Exam: Mucous Membranes Moist - Neck Exam Neck Exam: absent: Lymphadenopathy, Thyromegaly - Respiratory Exam Respiratory Exam: Clear to Ausculation Bilateral. absent: Rales - Cardiovascular Exam Cardiovascular Exam: REGULAR RHYTHM, Murmur - GI/Abdominal Exam GI & Abdominal Exam: Normal Bowel Sounds. absent: Organomegaly - Rectal Exam Rectal Exam: Deferred - Extremities Exam Extremities Exam: Normal Capillary Refill. absent: Calf Tenderness - Neurological Exam Neurological Exam: Alert, Oriented x3 - Psychiatric Exam Psychiatric exam: Normal Affect - Skin Skin Exam: Dry Assessment and Plan (1) Small bowel obstruction Status: Acute (2) CHF (congestive heart failure), NYHA class II Status: Chronic (3) Diabetes 1.5, managed as type 2 Status: Chronic
--- NOTE | 2017-08-07 13:38 | NM ---
COMPARISON: August 07, 2017. Single-view chest TECHNIQUE: 11.6 mCi technetium 99-m Xe-133 Gas. 3.8 mCI technetium 99-m MAA administered intravenously. FINDINGS: VENTILATION COMPONENT: Mildly heterogeneous ventilation particularly in the right lung. PERFUSION COMPONENT: Heterogeneous distribution of radionuclide. No geographic, segmental, lobar abnormalities apparent on the present examination. IMPRESSION: Low probability ventilation perfusion scan for pulmonary embolism.
[2017-08-07] MEDS: HYDROmorphone 0.5 mg/0.5 ml ISec IVP PRN (15:49)
--- NOTE | 2017-08-07 16:04 | CP.PCM.PN ---
Subjective - Date & Time of Evaluation Date of Evaluation: 08/07/17 Time of Evaluation: 07:00 - Subjective Subjective: GENERAL SURGERY PROGRESS NOTE FOR DR. AREVALO Patient seen and examined at bedside. She reports slight RUQ pain. She is tolerating CLD and denies nausea or vomiting. In the AM, she had still not passed flatus or had a BM. Later in the afternoon, she started passing flatus. She was refusing the Heparin shots because it hurt. She is ambulating to the bathroom and is using her IS. She had exertional SOB with ambulating and a VQ scan was done which showed low probability for PE. Objective - Vital Signs/Intake and Output Vital Signs (last 24 hours): Temp Pulse Resp BP Pulse Ox 99 F 96 H 20 159/94 H 97 08/07/17 13:03 08/07/17 13:03 08/07/17 13:03 08/07/17 13:03 08/07/17 13:03 Intake and Output: 08/07/17 08/07/17 06:59 18:59 Intake Total 600 630 Output Total 600 Balance 600 30 - Medications Medications: Current Medications Enoxaparin Sodium (Lovenox) 40 mg SC DAILY [facility] Last Admin: 08/07/17 11:06 Dose: 40 mg Furosemide (Lasix) 40 mg PO DAILY [facility] Hydromorphone HCl (Dilaudid) 0.5 mg IVP Q3 PRN PRN Reason: Pain, moderate (4-7) Last Admin: 08/07/17 15:49 Dose: 0.5 mg Insulin Aspart (Novolog) 0 unit SC Q6H [facility] PRN Reason: Protocol Last Admin: 08/07/17 06:02 Dose: Not Given Losartan Potassium (Cozaar) 100 mg PO DAILY [facility] Last Admin: 08/07/17 11:06 Dose: 100 mg Metoprolol Succinate (Toprol Xl) 100 mg PO DAILY [facility] Last Admin: 08/07/17 11:07 Dose: 100 mg Ondansetron HCl (Zofran Inj) 4 mg IVP Q4 PRN PRN Reason: Nausea/Vomiting Last Admin: 08/05/17 16:39 Dose: 4 mg Ondansetron HCl (Zofran Inj) 4 mg IVP ONCE PRN PRN Reason: Nausea/Vomiting Last Admin: 08/04/17 11:45 Dose: 4 mg Oxycodone/Acetaminophen (Percocet 5/325 Mg Tab) 1 tab PO Q4H PRN PRN Reason: Pain, Mild (1-3) Stop: 08/08/17 14:04 Last Admin: 08/06/17 00:07 Dose: 1 tab Pantoprazole Sodium (Protonix Ec Tab) 40 mg PO DAILY [facility] Last Admin: 08/07/17 11:06 Dose: 40 mg - Labs Labs: 08/07/17 10:31 08/07/17 10:31 PT 11.9 SECONDS (9.7-12.2) 08/04/17 05:26 INR 1.1 08/04/17 05:26 APTT 30 SECONDS (21-34) 08/04/17 05:26 - Constitutional Appears: Non-toxic, No Acute Distress - Head Exam Head Exam: ATRAUMATIC, NORMAL INSPECTION - Eye Exam Eye Exam: EOMI, Normal appearance - Respiratory Exam Respiratory Exam: NORMAL BREATHING PATTERN. absent: Respiratory Distress - Cardiovascular Exam Cardiovascular Exam: +S1, +S2 - GI/Abdominal Exam GI & Abdominal Exam: Soft, Tenderness (mild RUQ tenderness). absent: Distended , Firm, Guarding, Rigid, Rebound Additional comments: Dressing clean/dry/intact - Neurological Exam Neurological Exam: Alert, Awake, Oriented x3 - Psychiatric Exam Psychiatric exam: Normal Affect, Normal Mood - Skin Skin Exam: Dry, Normal Color, Warm Assessment and Plan - Assessment and Plan (Free Text) Assessment: 72yo F with SBO s/p ex-lap with small bowel resection POD#3 - Afebrile, VSS - Tolerating CLD and passed flatus, will advance to full liquids tomorrow for breakfast - Heparin switched to Lovenox - Continue physical therapy - Encouraged IS and ambulation - Discussed plan with Dr. Maggi Spear PGY-3
[2017-08-07] MEDS: Oxycodone/Acetaminophen 5/325 mg Tab PO PRN (19:04)
[2017-08-08] MEDS: (Novolog) Insulin Aspart, Recombinant 100 u/ml 10 ml vial SC SCH ×4 (00:45→17:46)
[2017-08-08] MEDS: HYDROmorphone 0.5 mg/0.5 ml ISec IVP PRN (06:03)
[2017-08-08] MEDS: Metoprolol Succinate 100 mg XL Tab PO SCH (10:14)
[2017-08-08] MEDS: Pantoprazole 40 mg EC Tab PO SCH (10:14)
[2017-08-08] MEDS: Enoxaparin 40 mg Syringe SC SCH (10:15)
--- NOTE | 2017-08-08 12:10 | CP.PCM.PN ---
Subjective - Date & Time of Evaluation Date of Evaluation: 08/08/17 Time of Evaluation: 12:07 - Subjective Subjective: Surgery: Dr. Tay Pt seen and examined. Resting comfortably in bed. Tolerating FLD, no N/V. Passing flatus, no BM. Pt does not want diet advanced yet. She is ambulating. She states that she would like to go to rehab prior to going home. Objective - Vital Signs/Intake and Output Vital Signs (last 24 hours): Temp Pulse Resp BP Pulse Ox 97.8 F 78 18 132/54 L 96 08/08/17 07:00 08/08/17 07:00 08/08/17 07:00 08/08/17 10:14 08/08/17 07:00 - Medications Medications: Current Medications Docusate Sodium (Colace) 100 mg PO TID [facility] Last Admin: 08/08/17 10:15 Dose: 100 mg Enoxaparin Sodium (Lovenox) 40 mg SC DAILY [facility] Last Admin: 08/08/17 10:15 Dose: 40 mg Furosemide (Lasix) 40 mg PO DAILY [facility] Last Admin: 08/08/17 10:14 Dose: 40 mg Insulin Aspart (Novolog) 0 unit SC Q6H [facility] PRN Reason: Protocol Last Admin: 08/08/17 00:45 Dose: Not Given Losartan Potassium (Cozaar) 100 mg PO DAILY [facility] Last Admin: 08/08/17 10:14 Dose: 100 mg Metoprolol Succinate (Toprol Xl) 100 mg PO DAILY [facility] Last Admin: 08/08/17 10:14 Dose: 100 mg Ondansetron HCl (Zofran Inj) 4 mg IVP Q4 PRN PRN Reason: Nausea/Vomiting Last Admin: 08/05/17 16:39 Dose: 4 mg Ondansetron HCl (Zofran Inj) 4 mg IVP ONCE PRN PRN Reason: Nausea/Vomiting Last Admin: 08/04/17 11:45 Dose: 4 mg Oxycodone/Acetaminophen (Percocet 5/325 Mg Tab) 1 tab PO Q4H PRN PRN Reason: Pain, Mild (1-3) Stop: 08/08/17 14:04 Last Admin: 08/07/17 19:04 Dose: 1 tab Pantoprazole Sodium (Protonix Ec Tab) 40 mg PO DAILY [facility] Last Admin: 08/08/17 10:14 Dose: 40 mg - Labs Labs: 08/07/17 10:31 08/07/17 10:31 PT 11.9 SECONDS (9.7-12.2) 08/04/17 05:26 INR 1.1 08/04/17 05:26 APTT 30 SECONDS (21-34) 08/04/17 05:26 - Constitutional Appears: Non-toxic, No Acute Distress - Head Exam Head Exam: ATRAUMATIC, NORMOCEPHALIC - Eye Exam Eye Exam: EOMI - ENT Exam ENT Exam: Mucous Membranes Moist - Neck Exam Neck Exam: Full ROM - Respiratory Exam Respiratory Exam: NORMAL BREATHING PATTERN. absent: Accessory Muscle Use, Respiratory Distress - GI/Abdominal Exam GI & Abdominal Exam: Soft. absent: Distended, Firm, Guarding, Rigid, Tenderness , Rebound Additional comments: Incision C/D/I - Neurological Exam Neurological Exam: Alert, Awake, Oriented x3 Assessment and Plan - Assessment and Plan (Free Text) Assessment: 72F w. SBO, s/p ex-lap w. small bowel resection and primary anastomosis, POD#4 -c/w FLD, will advance diet when pt has BM -encourage OOB, ambulation, and IS use -GI/DVT prophylaxis -d/w attending Zemaitis PGY3
[2017-08-08 12:28] VITALS: RESP 20
[2017-08-08] MEDS: Oxycodone/Acetaminophen 5/325 mg Tab PO PRN ×2 (14:49→21:46)
[2017-08-09 09:31] VITALS: TEMP 98.2
[2017-08-09] MEDS: Metoprolol Succinate 100 mg XL Tab PO SCH (10:53)
[2017-08-09] MEDS: Enoxaparin 40 mg Syringe SC SCH (10:53)
[2017-08-09] MEDS: Pantoprazole 40 mg EC Tab PO SCH (10:53)
[2017-08-09] MEDS: (Novolog) Insulin Aspart, Recombinant 100 u/ml 10 ml vial SC SCH ×2 (12:00→17:14)
--- NOTE | 2017-08-09 13:28 | CP.PCM.PN ---
Subjective - Date & Time of Evaluation Date of Evaluation: 08/08/17 Time of Evaluation: 12:00 - Subjective Subjective: Patient was seen on the and the note is been written today. Less shortness of breath after diuresis, able to eat clear liquid for subacute rehabilitati Objective - Vital Signs/Intake and Output Vital Signs (last 24 hours): Temp Pulse Resp BP Pulse Ox 98.2 F 71 20 121/75 92 L 08/09/17 08:45 08/09/17 08:45 08/09/17 08:45 08/09/17 10:53 08/09/17 08:45 - Medications Medications: Current Medications Docusate Sodium (Colace) 100 mg PO TID [facility] Last Admin: 08/09/17 10:53 Dose: 100 mg Enoxaparin Sodium (Lovenox) 40 mg SC DAILY [facility] Last Admin: 08/09/17 10:53 Dose: 40 mg Furosemide (Lasix) 40 mg PO DAILY [facility] Last Admin: 08/09/17 10:53 Dose: 40 mg Insulin Aspart (Novolog) 0 unit SC Q6H [facility] PRN Reason: Protocol Last Admin: 08/08/17 17:46 Dose: Not Given Losartan Potassium (Cozaar) 100 mg PO DAILY [facility] Last Admin: 08/09/17 10:53 Dose: 100 mg Metoprolol Succinate (Toprol Xl) 100 mg PO DAILY [facility] Last Admin: 08/09/17 10:53 Dose: 100 mg Ondansetron HCl (Zofran Inj) 4 mg IVP Q4 PRN PRN Reason: Nausea/Vomiting Last Admin: 08/05/17 16:39 Dose: 4 mg Ondansetron HCl (Zofran Inj) 4 mg IVP ONCE PRN PRN Reason: Nausea/Vomiting Last Admin: 08/04/17 11:45 Dose: 4 mg Oxycodone/Acetaminophen (Percocet 5/325 Mg Tab) 1 tab PO Q6H PRN PRN Reason: Pain, moderate (4-7) Stop: 08/11/17 14:29 Last Admin: 08/08/17 21:46 Dose: 1 tab Pantoprazole Sodium (Protonix Ec Tab) 40 mg PO DAILY [facility] Last Admin: 08/09/17 10:53 Dose: 40 mg - Labs Labs: 08/07/17 10:31 08/07/17 10:31 PT 11.9 SECONDS (9.7-12.2) 08/04/17 05:26 INR 1.1 08/04/17 05:26 APTT 30 SECONDS (21-34) 08/04/17 05:26 - Constitutional Appears: Non-toxic - Head Exam Head Exam: ATRAUMATIC - Eye Exam Eye Exam: EOMI - ENT Exam ENT Exam: Mucous Membranes Moist - Neck Exam Neck Exam: absent: Lymphadenopathy, Thyromegaly - Respiratory Exam Respiratory Exam: Clear to Ausculation Bilateral. absent: Rales - Cardiovascular Exam Cardiovascular Exam: REGULAR RHYTHM, Murmur - GI/Abdominal Exam GI & Abdominal Exam: Normal Bowel Sounds. absent: Organomegaly - Rectal Exam Rectal Exam: Deferred - Extremities Exam Extremities Exam: Normal Capillary Refill. absent: Calf Tenderness - Neurological Exam Neurological Exam: Alert, Oriented x3 - Psychiatric Exam Psychiatric exam: Normal Mood - Skin Skin Exam: Dry Assessment and Plan (1) Small bowel obstruction Status: Acute (2) CHF (congestive heart failure), NYHA class II Status: Chronic (3) Diabetes 1.5, managed as type 2 Status: Chronic
--- NOTE | 2017-08-09 13:30 | CP.PCM.DIS ---
Provider - Provider Date of Admission: 08/02/17 23:25 Attending physician: Atif Garay MD Time Spent in preparation of Discharge (in minutes): 20 Diagnosis - Discharge Diagnosis (1) Small bowel obstruction Status: Acute (2) CHF (congestive heart failure), NYHA class II Status: Chronic (3) Diabetes 1.5, managed as type 2 Status: Chronic Hospital Course - Lab Results Lab Results: Micro Results 08/06/17 Unknown Naris MRSA Culture - Final MRSA NOT DETECTED 08/04/17 16:00 Naris MRSA Culture (Admit) - Final MRSA NOT DETECTED Most Recent Lab Values WBC 9.6 K/uL (4.8-10.8) 08/07/17 10:31 RBC 4.06 Mil/uL (3.80-5.20) 08/07/17 10:31 Hgb 12.2 g/dL (11.0-16.0) 08/07/17 10:31 Hct 36.5 % (34.0-47.0) 08/07/17 10:31 MCV 89.9 fL (81.0-99.0) 08/07/17 10:31 MCH 30.0 pg (27.0-31.0) 08/07/17 10:31 MCHC 33.4 g/dL (33.0-37.0) 08/07/17 10:31 RDW 14.1 % (11.5-14.5) 08/07/17 10:31 Plt Count 214 K/uL (130-400) 08/07/17 10:31 MPV 8.7 fL (7.2-11.7) 08/07/17 10:31 Neut % (Auto) 75.4 % (50.0-75.0) H 08/07/17 10:31 Lymph % (Auto) 15.3 % (20.0-40.0) L 08/07/17 10:31 [place] % (Auto) 7.6 % (0.0-10.0) 08/07/17 10:31 Eos % (Auto) 1.2 % (0.0-4.0) 08/07/17 10:31 Baso % (Auto) 0.5 % (0.0-2.0) 08/07/17 10:31 Neut # 7.2 K/uL (1.8-7.0) H 08/07/17 10:31 Lymph # 1.5 K/uL (1.0-4.3) 08/07/17 10:31 [place] # 0.7 K/uL (0.0-0.8) 08/07/17 10:31 Eos # 0.1 K/uL (0.0-0.7) 08/07/17 10:31 Baso # 0.0 K/uL (0.0-0.2) 08/07/17 10:31 PT 11.9 SECONDS (9.7-12.2) 08/04/17 05:26 INR 1.1 08/04/17 05:26 APTT 30 SECONDS (21-34) 08/04/17 05:26 Sodium 137 mmol/L (132-148) 08/07/17 10:31 Potassium 3.7 mmol/L (3.6-5.2) 08/07/17 10:31 Chloride 103 mmol/L (98-107) 08/07/17 10:31 Carbon Dioxide 27 mmol/L (22-30) 08/07/17 10:31 Anion Gap 11 (10-20) 08/07/17 10:31 BUN 7 mg/dL (7-17) 08/07/17 10:31 Creatinine 0.9 mg/dL (0.7-1.2) 08/07/17 10:31 Est GFR ( Amer) > 60 08/07/17 10:31 Est GFR (Non-Af Amer) > 60 08/07/17 10:31 POC Glucose (mg/dL) 105 mg/dL (65-110) 08/09/17 11:28 Random Glucose 92 mg/dL (65-105) 08/07/17 10:31 Calcium 9.4 mg/dl (8.6-10.4) 08/07/17 10:31 Phosphorus 4.0 mg/dL (2.5-4.5) 08/05/17 06:32 Magnesium 1.6 mg/dL (1.6-2.3) 08/05/17 06:32 Total Bilirubin 0.7 mg/dL (0.2-1.3) 08/07/17 10:31 AST 21 U/L (14-36) 08/07/17 10:31 ALT 30 U/L (9-52) 08/07/17 10:31 Alkaline Phosphatase 69 U/L (38-126) 08/07/17 10:31 Total Protein 7.1 g/dL (6.3-8.3) 08/07/17 10:31 Albumin 3.4 g/dL (3.5-5.0) L 08/07/17 10:31 Globulin 3.7 gm/dL (2.2-3.9) 08/07/17 10:31 Albumin/Globulin Ratio 0.9 (1.0-2.1) L 08/07/17 10:31 Lipase 73 U/L (23-300) 08/02/17 20:00 Urine Color Yellow (YELLOW) 08/02/17 21:16 Urine Clarity Clear (Clear) 08/02/17 21:16 Urine pH 5.0 (5.0-8.0) 08/02/17 21:16 Ur Specific Mobile 1.020 (1.003-1.030) 08/02/17 21:16 Urine Protein 1+ mg/dL (NEGATIVE) H 08/02/17 21:16 Urine Glucose (UA) Normal mg/dL (Normal) 08/02/17 21:16 Urine Ketones Negative mg/dL (NEGATIVE) 08/02/17 21:16 Urine Blood Negative (NEGATIVE) 08/02/17 21:16 Urine Nitrate Negative (NEGATIVE) 08/02/17 21:16 Urine Bilirubin Negative (NEGATIVE) 08/02/17 21:16 Urine Urobilinogen Normal mg/dL (0.2-1.0) 08/02/17 21:16 Ur Leukocyte Esterase Neg Jaspreet/uL (Negative) 08/02/17 21:16 Urine WBC (Auto) 3 /hpf (0-5) 08/02/17 21:16 Urine RBC (Auto) 1 /hpf (0-3) 08/02/17 21:16 Ur Squamous Epith Cells 2 /hpf (0-5) 08/02/17 21:16 Blood Type O POSITIVE 08/03/17 17:23 Antibody Screen Negative 08/03/17 17:23 - Hospital Course Hospital Course: 72 years old with history of dilated cardio myopathy post stress, was admitted yet again with small bowel obstruction, underwent an urgent surgery did well complicated with shortness of breath, was in failure, fluid was stopped, diuresed, did well. Further follow-up and subacute rehabilitation Discharge Exam - Head Exam Head Exam: ATRAUMATIC - Eye Exam Eye Exam: EOMI - ENT Exam ENT Exam: Mucous Membranes Moist - Neck Exam Neck exam: Full Rom - Respiratory Exam Respiratory Exam: Clear to PA & Lateral. absent: Rales - Cardiovascular Exam Cardiovascular Exam: REGULAR RHYTHM, Systolic Murmur - GI/Abdominal Exam GI & Abdominal Exam: Normal Bowel Sounds, Tenderness - Rectal Exam Rectal Exam: Deferred - Extremities Exam Extremities exam: normal capillary refill - Neurological Exam Neurological exam: Alert, Oriented x3 - Psychiatric Exam Psychiatric exam: Normal Mood - Skin Skin Exam: Dry Discharge Plan - Follow Up Plan Condition: STABLE Disposition: HOME/ ROUTINE
[2017-08-09] MEDS ORDERED: Bisacodyl 5mg EC Tab PO ONE (14:39)
--- NOTE | 2017-08-09 15:18 | PCM.HF ---
Heart Failure Core Measure - Heart Failure Ejection Fraction: Less Than 40 % DINA Inhibitor Prescribed: No Contraindication/Reason for not providing: PATIENT IS ON arb Beta-Nils Prescribed: Metoprolol Succinate Angiotensin II Receptor Nils Prescribed: Yes AnticoagulationTherapy for Atrial Fibrillation/Atrialflutter: No Contraindication/Reason for not providing: NO AFIB Aldosterone Antagonist Prescribed: No Contraindication/Reason for not providing: F/U WITH PMD Hydralazine Nitrate Prescribed: No Contraindication/Reason for not providing: F/U WITH PMD Implantable Cardioverter Defibrillator Therapy: No Contraindication/Reason for not providing: WILL HAVE TO F/U WITH PMD OUT PATIENT Cardiac Resynchronization Therapy Prescribed: No Contraindication/Reason for not providing: WILL HAVE TO F/U WITH PMD OUT PATIENT - Follow up Will be discharged to: [facility] ([facility]) Follow Up Date (must be within 7 days from discharge): 08/14/17 Follow Up Time: 09:00
--- NOTE | 2017-08-09 15:23 | CP.PCM.PN ---
Subjective - Date & Time of Evaluation Date of Evaluation: 08/09/17 Time of Evaluation: 15:20 - Subjective Subjective: PATIENT APPEAR BETTER THAN YESTERDAY; WAS ABLE TO EAT A QUATER OF HER BREAKFAST ; PATIENT STATE THAT SHE DID NOT HAVE ANY BM POST SX 5 DAYS; DENIES ANY ABD PAIN , SOB NAUSEA AND VOMITING; DAUGHTER AT THE BEDSIDE AND DISCHARGE INSTRUCTIONS WAS GIVEN TO THE PATIENT AND HER DAUGHTER Objective - Vital Signs/Intake and Output Vital Signs (last 24 hours): Temp Pulse Resp BP Pulse Ox 98.2 F 71 20 121/75 92 L 08/09/17 08:45 08/09/17 08:45 08/09/17 08:45 08/09/17 10:53 08/09/17 08:45 - Medications Medications: Current Medications Docusate Sodium (Colace) 100 mg PO TID [facility] Last Admin: 08/09/17 10:53 Dose: 100 mg Enoxaparin Sodium (Lovenox) 40 mg SC DAILY [facility] Last Admin: 08/09/17 10:53 Dose: 40 mg Furosemide (Lasix) 40 mg PO DAILY [facility] Last Admin: 08/09/17 10:53 Dose: 40 mg Insulin Aspart (Novolog) 0 unit SC Q6H [facility] PRN Reason: Protocol Last Admin: 08/09/17 12:00 Dose: Not Given Losartan Potassium (Cozaar) 100 mg PO DAILY [facility] Last Admin: 08/09/17 10:53 Dose: 100 mg Metoprolol Succinate (Toprol Xl) 100 mg PO DAILY [facility] Last Admin: 08/09/17 10:53 Dose: 100 mg Ondansetron HCl (Zofran Inj) 4 mg IVP Q4 PRN PRN Reason: Nausea/Vomiting Last Admin: 08/05/17 16:39 Dose: 4 mg Ondansetron HCl (Zofran Inj) 4 mg IVP ONCE PRN PRN Reason: Nausea/Vomiting Last Admin: 08/04/17 11:45 Dose: 4 mg Oxycodone/Acetaminophen (Percocet 5/325 Mg Tab) 1 tab PO Q6H PRN PRN Reason: Pain, moderate (4-7) Stop: 08/11/17 14:29 Last Admin: 08/08/17 21:46 Dose: 1 tab Pantoprazole Sodium (Protonix Ec Tab) 40 mg PO DAILY [facility] Last Admin: 08/09/17 10:53 Dose: 40 mg - Labs Labs: 08/07/17 10:31 08/07/17 10:31 PT 11.9 SECONDS (9.7-12.2) 08/04/17 05:26 INR 1.1 08/04/17 05:26 APTT 30 SECONDS (21-34) 08/04/17 05:26 - Constitutional Appears: Well - Respiratory Exam Respiratory Exam: Clear to Ausculation Bilateral - Cardiovascular Exam Cardiovascular Exam: +S1, +S2 - GI/Abdominal Exam GI & Abdominal Exam: Hypoactive Bowel Sounds Additional comments: ABD ROUND AND SOFT; MIDLINE SUTURES INTACT NO SIGN OF REDDNESS, DISCHARGE OR TENDERNESS NOTED AROUND ; NEGATIVE FOR BM DAY 5 AFTER SX - Exam Exam: NORMAL INSPECTION Assessment and Plan - Assessment and Plan (Free Text) Assessment: PATIENT IS SEEN AND EXAMINED NO SIGN OF DISTRESS NOTED; DISCHARGE PLAN DISCUSS WITH PATIENT AND DAUGHTER TO SENT TO [facility]; CLEAR BY DR GLYNN AND JEFRY PHILLIPS; PATIENT WILL CONTINUE PAIN MED ( PERCOCET) AND DULCOLAX AND COLACE WERE ADDED TO FACILITATE BM POST DISCHARGE PATIENT AND DAUGHTER VERBALIZED UNDERSTANDING AND IN AGREEMENT WITH THE PLAN
[2017-08-09 15:52] VITALS: BP 122/85; PULSE 67; O2SAT 99
--- NOTE | 2017-08-09 16:21 | CP.PCM.PN ---
Subjective - Date & Time of Evaluation Date of Evaluation: 08/09/17 Time of Evaluation: 16:20 - Subjective Subjective: Surgery: Dr. Tay Pt seen and examined. Resting comfortably in bed. Pt is in good spirits. Tolerating regular diet. No N/V. Lots of flatus. No BM. Pt is ambulating w. out issue Objective - Vital Signs/Intake and Output Vital Signs (last 24 hours): Temp Pulse Resp BP Pulse Ox 98.2 F 67 20 122/85 99 08/09/17 15:49 08/09/17 15:49 08/09/17 15:49 08/09/17 15:49 08/09/17 15:49 - Medications Medications: Current Medications Docusate Sodium (Colace) 100 mg PO TID [facility] Last Admin: 08/09/17 15:30 Dose: 100 mg Enoxaparin Sodium (Lovenox) 40 mg SC DAILY [facility] Last Admin: 08/09/17 10:53 Dose: 40 mg Furosemide (Lasix) 40 mg PO DAILY [facility] Last Admin: 08/09/17 10:53 Dose: 40 mg Insulin Aspart (Novolog) 0 unit SC Q6H [facility] PRN Reason: Protocol Last Admin: 08/09/17 12:00 Dose: Not Given Losartan Potassium (Cozaar) 100 mg PO DAILY [facility] Last Admin: 08/09/17 10:53 Dose: 100 mg Metoprolol Succinate (Toprol Xl) 100 mg PO DAILY [facility] Last Admin: 08/09/17 10:53 Dose: 100 mg Ondansetron HCl (Zofran Inj) 4 mg IVP Q4 PRN PRN Reason: Nausea/Vomiting Last Admin: 08/05/17 16:39 Dose: 4 mg Ondansetron HCl (Zofran Inj) 4 mg IVP ONCE PRN PRN Reason: Nausea/Vomiting Last Admin: 08/04/17 11:45 Dose: 4 mg Oxycodone/Acetaminophen (Percocet 5/325 Mg Tab) 1 tab PO Q6H PRN PRN Reason: Pain, moderate (4-7) Stop: 08/11/17 14:29 Last Admin: 08/08/17 21:46 Dose: 1 tab Pantoprazole Sodium (Protonix Ec Tab) 40 mg PO DAILY [facility] Last Admin: 08/09/17 10:53 Dose: 40 mg - Labs Labs: 08/07/17 10:31 08/07/17 10:31 PT 11.9 SECONDS (9.7-12.2) 08/04/17 05:26 INR 1.1 08/04/17 05:26 APTT 30 SECONDS (21-34) 08/04/17 05:26 - Constitutional Appears: Non-toxic, No Acute Distress - Head Exam Head Exam: ATRAUMATIC, NORMOCEPHALIC - Eye Exam Eye Exam: EOMI - Neck Exam Neck Exam: Full ROM - Respiratory Exam Respiratory Exam: NORMAL BREATHING PATTERN. absent: Accessory Muscle Use, Respiratory Distress - GI/Abdominal Exam GI & Abdominal Exam: Soft. absent: Distended, Firm, Guarding, Rigid, Tenderness , Rebound Additional comments: incision C/D/I - Extremities Exam Extremities Exam: absent: Calf Tenderness, Pedal Edema - Neurological Exam Neurological Exam: Alert, Awake, Oriented x3 Assessment and Plan - Assessment and Plan (Free Text) Assessment: 72F w. SBO, s/p ex-lap w. small bowel resection and primary anastomosis, POD#5 -Pt is doing well, clear for D/C from surgical standpoint -Pt to f/u w. Dr. Tay in 1-2 weeks after D/C -d/w attending Tim PGY3
[2017-08-09] MEDS: Oxycodone/Acetaminophen 5/325 mg Tab PO PRN (17:29)
== END 2017-08-09 18:05 | DRG 330 ==
LOC: C.ER 18:19 → C.9E 23:25 → C.3T 08-03 00:28 → C.9I 08-04 11:42 → C.5S 08-06 13:18
PROVIDERS: ADMIT Internal Medicine Cardiovascular Disease; ATTEND Internal Medicine Cardiovascular Disease
PROC: 0DN80ZZ Release Small Intestine, Open Approach (ICD-10-PCS; 2017-08-04)
PROC: 0DT80ZZ Resection of Small Intestine, Open Approach (ICD-10-PCS; principal; 2017-08-04 08:00)
DX: K56.50 Intestinal adhesions [bands], unspecified as to partial versus complete obstruction (principal); K46.0 Unspecified abdominal hernia with obstruction, without gangrene; I42.0 Dilated cardiomyopathy; E11.22 Type 2 diabetes mellitus with diabetic chronic kidney disease; I13.0 Hypertensive heart and chronic kidney disease with heart failure and stage 1 through stage 4 chronic kidney disease, or unspecified chronic kidney disease; I50.9 Heart failure, unspecified; K56.2 Volvulus; M19.041 Primary osteoarthritis, right hand; M19.042 Primary osteoarthritis, left hand; N18.9 Chronic kidney disease, unspecified; Z86.010 Personal history of colon polyps; Z90.710 Acquired absence of both cervix and uterus

== ENCOUNTER 2017-09-30 10:17 | Inpatient (IN) | payer MEDICARE, OTHER ==
[2017-09-30 10:17] VITALS: BMI 36.6
[2017-09-30 11:36] LABS: BASO % 0.6 % (0.0-2.0); EOS % 0.6 % (0.0-4.0); HEMATOCRIT 37.5 % (34.0-47.0); LYMPH # 1.9 K/uL (1.0-4.3); LYMPH % 27.5 % (20.0-40.0); MEAN CELL VOLUME 89.7 fL (81.0-99.0); MEAN CORPUSCULAR HEMOGLOBIN 29.6 pg (27.0-31.0); MEAN PLATELET VOLUME 8.7 fL (7.2-11.7); MONO # 0.4 K/uL (0.0-0.8); MONO % 5.7 % (0.0-10.0); NRBC % 0.1 % (0.0-2.0); RED CELL DISTRIBUTION WIDTH 15.1 % (11.5-14.5); WHITE BLOOD COUNT 7.1 K/uL (4.8-10.8)
--- NOTE | 2017-09-30 11:40 | CT ---
PROCEDURE: CT HEAD WITHOUT CONTRAST. HISTORY: SLURRED SPEECH COMPARISON: None available. TECHNIQUE: Axial computed tomography images were obtained through the head/brain without intravenous contrast. Radiation dose: Total exam DLP = 893 mGy-cm. This CT exam was performed using one or more of the following dose reduction techniques: Automated exposure control, adjustment of the mA and/or kV according to patient size, and/or use of iterative reconstruction technique. FINDINGS: HEMORRHAGE: No intracranial hemorrhage. BRAIN: No mass effect or edema. Scattered focal lucencies in the subcortical and periventricular white matter suggestive for chronic microvascular ischemic change. . Focal confluent area of low attenuation seen within the anterior right frontal subcortical white matter suggestive for encephalomalacia from chronic infarction. Additional etiologies not entirely be excluded. Bilateral basal ganglia lacunar infarcts. VENTRICLES: Unremarkable. No hydrocephalus. CALVARIUM: Unremarkable. PARANASAL SINUSES: Unremarkable as visualized. No significant inflammatory changes. MASTOID AIR CELLS: Unremarkable as visualized. No inflammatory changes. OTHER FINDINGS: Intracranial arterial vascular calcifications. IMPRESSION: 1. Confluent focal area of low attenuation seen within the right frontal subcortical white matter suggestive for chronic infarct. Additional etiologies not entirely excluded. Correlation with MRI may be helpful if clinically indicated. 2. Chronic microvascular ischemic changes. 3. Punctate bilateral basal ganglia lacunar infarcts. Additional findings as above.
--- NOTE | 2017-09-30 11:57 | C.PDOC ---
History Of Present Illness Patient BIBA for evaluation after epiode of slurred speech and LUE weakness. Patient states she was on the phone when she noticed her speech was slurred and she was trouble holding into the phone with her left hand. She had a sudden sharp left sided headache, and symptoms resolved in <1 minute. She denies visual changes, dizziness, chest pain, palpitations, Time Seen by Provider: 09/30/17 10:28 Chief Complaint (Nursing): Weakness/Neurological Deficit Past Medical History Vital Signs: Last Vital Signs Temp 97.7 F 10/03/17 16:00 Pulse 78 10/03/17 16:00 Resp 20 10/03/17 16:00 BP 95/60 L 10/03/17 16:00 Pulse Ox 99 10/03/17 16:00 - Medical History PMH: Arthritis (HANDS; RIGHT ARM), CHF, Colonic Polyps, Diverticulitis, HTN, Pancreatitis Denies: Atrial Fibrillation, Cardia Arrhythmia, Crohn's Disease, Fractures, Gastritis, Gall Bladder Disease, HIV, Hypercholesterolemia, Mitral Valve Prolapse, Osteoporosis, Peripheral Edema, Chronic Kidney Disease, Rheumatoid Arthritis Surgical History: Endoscopy Denies: Appendectomy, CABG, Carotid Endarterectomy, Cholecystectomy, Coronary Stent, Pacemaker, Tonsillectomy - [facility] Procedures DRESSING TECHNIQUES TREATMENT USING ASSIST EQUIPMENT (08/09/17) GAIT TRAINING/FUNCTIONAL AMBULATION TREATMENT (08/09/17) HOME MANAGEMENT TREATMENT USING ASSIST EQUIPMENT (08/09/17) RELEASE SMALL INTESTINE, OPEN APPROACH (08/02/17) RESECTION OF SMALL INTESTINE, OPEN APPROACH (08/02/17) THERAPEUTIC EXERCISE TREATMENT OF MUSCULOSK LOW BACK/LE (08/09/17) Family History: States: Unknown Family Hx - Social History Hx Alcohol Use: No Hx Substance Use: No - Immunization History Hx Tetanus Toxoid Vaccination: No Hx Influenza Vaccination: No Hx Pneumococcal Vaccination: Yes ED Course And Treatment - Laboratory Results Result Diagrams: 10/01/17 06:47 10/01/17 06:47 ECG: Interpreted By Me, Viewed By Me (NSR 76 bpm, normal axis, LBBB, no acute ST changes (prior EKG shows LBBB)) O2 Sat by Pulse Oximetry: 98 (RA) Pulse Ox Interpretation: Normal - CT Scan/US CT HEAD Other Rad Studies (CT/US): Read By Radiologist, Radiology Report Reviewed CT/US Interpretation: Accession No. : [id number]. Patient Name / ID : SUNDEEP ROMO / [id number]. Exam Date : 09/30/2017 11:08:54 ( Approved ). Study Comment : Sex / Age : F / 72Y. Creator : Fawad Griffin MD. Dictator : Fawad Griffin MD. Dining Service Worker : Biological Scientist : Fawad Griffin MD. Approver2 : Report Date : 09/30/2017 11:38:57. My Comment : . PROCEDURE: CT HEAD WITHOUT CONTRAST. HISTORY: SLURRED SPEECH. COMPARISON: None available. TECHNIQUE: Axial computed tomography images were obtained through the head/brain without intravenous contrast. Radiation dose: Total exam DLP = 893 mGy-cm. This CT exam was performed using one or more of the following dose reduction techniques: Automated exposure control, adjustment of the mA and/or kV according to patient size, and/or use of iterative reconstruction technique. FINDINGS: HEMORRHAGE: No intracranial hemorrhage. BRAIN: No mass effect or edema. Scattered focal lucencies in the subcortical and periventricular white matter suggestive for chronic microvascular ischemic change. . Focal confluent area of low attenuation seen within the anterior right frontal subcortical white matter suggestive for encephalomalacia from chronic infarction. Additional etiologies not entirely be excluded. Bilateral basal ganglia lacunar infarcts. VENTRICLES: Unremarkable. No hydrocephalus. CALVARIUM: Unremarkable. PARANASAL SINUSES: Unremarkable as visualized. No significant inflammatory changes. MASTOID AIR CELLS: Unremarkable as visualized. No inflammatory changes. OTHER FINDINGS: Intracranial arterial vascular calcifications. IMPRESSION: 1. Confluent focal area of low attenuation seen within the right frontal subcortical white matter suggestive for chronic infarct. Additional etiologies not entirely excluded. Correlation with MRI may be helpful if clinically indicated. 2. Chronic microvascular ischemic changes. 3. Punctate bilateral basal ganglia lacunar infarcts. Additional findings as above. Progress Note: Blood work, CT head, EKG, CXR ordered and reviewed. Patient given PO ASA after CT head (-) for bleed. - Physician Consult Information Physician Contacted: Atif Garay Outcome Of Conversation: Discussed patient with Dr. Garay, agrees with telemetry admission for TIA. Would like Dr. Lacey for neurology, consult entered. NIHSS Stroke Scale - Date/Time Evaluation Performed Date Performed: 09/30/17 Time Performed: 10:30 When Was NIHSS Performed: Baseline - How Severe is the [place] Level of Consciousness: 0=Alert LOC to Questions: 0=Both comments correct LOC to commands: 0=Obeys both correctly Best Gaze: 0=Normal Visual: 0=No visual loss Facial: 0=Normal Motor Arm - Left: 0=No drift Motor Arm - Right: 0=No drift Motor Leg - Left: 0=No drift Motor Leg - Right: 0=No drift Limb Ataxia: 0=Absent Sensory: 0=Normal Best Language: 0=No aphasia Dysarthia: 0=Normal articulation Extinction & Inattention (Neglect): 0=Normal, no object Score: 0 Severity Of Stroke: 0= No Stroke rTPA Inclusion/Exclusion - Refusal of Treatment Patient Refused Treatment: No - Inclusion Criteria for Altepase Patient is 18 years or Older: Yes The Clinical Diagnosis of Ischemic Stroke That is Causing a Potentially Disabling Neurological Deficit: No Time of Onset is Well Established to be Less Than 270 Minute Before Treatment Would Begin: No Risk/Benefit Discussed With Patient/Family Member Present: No Disposition - Disposition Disposition: HOSPITALIZED Disposition Time: 14:12 Condition: STABLE - Clinical Impression Clinical Impression: TIA (transient ischemic attack), Basal ganglia infarction, Lacunar infarction, Cerebral infarction, chronic Decision To Admit - Pt Status Changed To: Hospital Disposition Of: Inpatient - Admit Certification Admit to Inpatient:: After my assessment, the patient will require hospitalization for at least two midnights. This is because of the severity of symptoms shown, intensity of services needed, and/or the medical risk in this patient being treated as an outpatient. - InPatient: Physician Admission Certification: I certify that this patient requires 2 or more midnights of care for the following reason:: SEE NOTES - . Bed Request Type: Telemetry Admitting Physician: Atif Garay Patient Diagnosis: TIA (transient ischemic attack)
[2017-09-30 12:41] LABS: ALB/GLOB RATIO 1.4 (1.0-2.1); BILIRUBIN,TOTAL 0.5 mg/dL (0.2-1.3); POTASSIUM 3.7 mmol/L (3.6-5.2); TOTAL PROTEIN 6.9 g/dL (6.3-8.3)
[2017-09-30 12:53] LABS: TROPONIN I 0.02 ng/mL (0.00-0.120)
[2017-09-30] MEDS ORDERED: Aspirin 325 mg EC Tablets PO STA (12:55)
--- NOTE | 2017-09-30 15:52 | CP.PCM.HP ---
History of Present Illness - History of Present Illness History of Present Illness: Ms. 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 She had negative cardiac cath and lately the negative stress test for ischemia. She had ejection fraction of about 25-30% on medical treatment doing well however she was hesitant and did not want the implantable defibrillator. No syncope and no palpitation. She had prior abdominal surgery and frequent admissions for abdominal pain and CT scan that shows small bowel obstruction. She had history of type 2 diabetes on diet and history of hypertension on medical treatment.admitted with TIA ? embolic f/ u with neuro. Present on Admission - Present on Admission Any Indicators Present on Admission: Yes Review of Systems - Review of Systems Systems not reviewed;Unavailable: Unstable Vital Signs - Constitutional Constitutional: Anorexia, Weakness - EENT Eyes: absent: Discharge, Exophthalmos Nose/Mouth/Throat: absent: Epistaxis, Nasal Congestion - Cardiovascular Cardiovascular: absent: Acrocyanosis, Chest Pain, Diaphoresis, Edema, Paroxysmal Nocturnal Dyspnea, Syncope - Respiratory Respiratory: absent: Cough, Dyspnea, Hemoptysis - Gastrointestinal Gastrointestinal: absent: Abdominal Pain, Diarrhea, Hematochezia, Nausea, Vomiting - Genitourinary Genitourinary: absent: Change in Urinary Stream - Reproductive: Female Reproductive:Female: Post Menopausal Past Patient History - Infectious Disease Hx of Infectious Diseases: None - Past Medical History & Family History Past Medical History?: Yes - Past Social History Smoking Status: Never Smoked - CARDIAC Hx Atrial Fibrillation: No Hx Cardia Arrhythmia: No Hx Congestive Heart Failure: Yes Hx Hypercholesterolemia: No Hx Hypertension: Yes Hx Mitral Valve Prolapse: No Hx Pacemaker: No Hx Peripheral Edema: No - PULMONARY Hx Respiratory Disorders: No - NEUROLOGICAL Hx Neurological Disorder: No - HEENT Hx HEENT Problems: No - RENAL Hx Chronic Kidney Disease: No - ENDOCRINE/METABOLIC Hx Endocrine Disorders: Yes Other/Comment: Borderline diabetes - HEMATOLOGICAL/ONCOLOGICAL Hx Human Immunodeficiency Virus (HIV): No - INTEGUMENTARY Hx Dermatological Problems: No - MUSCULOSKELETAL/RHEUMATOLOGICAL Hx Arthritis: Yes (HANDS; RIGHT ARM) Hx Fractures: No Hx Osteoporosis: No Hx Rheumatoid Arthritis: No - GASTROINTESTINAL Hx Crohn's Disease: No Hx Diverticulitis: Yes Hx Gall Bladder Disease: No Hx Gastritis: No Hx Pancreatitis: Yes - GENITOURINARY/GYNECOLOGICAL Hx Genitourinary Disorders: No - PSYCHIATRIC Hx Substance Use: No - SURGICAL HISTORY Hx Appendectomy: No Hx Carotid Endarterectomy: No Hx Cholecystectomy: No Hx Coronary Artery Bypass Graft: No Hx Coronary Stent: No Hx Tonsillectomy: No - ANESTHESIA Hx Anesthesia: Yes Hx Anesthesia Reactions: No Hx Malignant Hyperthermia: No Meds Allergies/Adverse Reactions: Allergies Allergy/AdvReac Type Severity Reaction Status Date / Time enalaprilat [From Vasotec] Allergy RASH Verified 09/30/17 10:32 hydrochlorothiazide Allergy RASH Verified 09/30/17 10:32 Physical Exam - Constitutional Appears: Non-toxic - Head Exam Head Exam: ATRAUMATIC - Eye Exam Eye Exam: EOMI - ENT Exam ENT Exam: Mucous Membranes Moist - Neck Exam Neck exam: Negative for: Lymphadenopathy, Thyromegaly - Respiratory Exam Respiratory Exam: NORMAL BREATHING PATTERN. absent: Rales - Cardiovascular Exam Cardiovascular Exam: REGULAR RHYTHM, Systolic Murmur - GI/Abdominal Exam GI & Abdominal Exam: Normal Bowel Sounds. absent: Organomegaly - Rectal Exam Rectal Exam: Deferred - Extremities Exam Extremities exam: Positive for: normal capillary refill. Negative for: calf tenderness - Neurological Exam Neurological exam: Alert, Oriented x3 - Psychiatric Exam Psychiatric exam: Anxious Results - Vital Signs Recent Vital Signs: Last Vital Signs Temp 98.5 F 09/30/17 10:21 Pulse 73 09/30/17 15:13 Resp 16 09/30/17 15:13 BP 124/65 09/30/17 15:13 Pulse Ox 98 09/30/17 15:13 - Labs Result Diagrams: 10/01/17 06:47 10/01/17 06:47 Labs: Laboratory Results - last 24 hr 09/30/17 09/30/17 09/30/17 10:56 11:33 11:33 WBC 7.1 RBC 4.18 Hgb 12.4 Hct 37.5 MCV 89.7 MCH 29.6 MCHC 33.0 RDW 15.1 H Plt Count 248 MPV 8.7 Neut % (Auto) 65.6 Lymph % (Auto) 27.5 [place] % (Auto) 5.7 Eos % (Auto) 0.6 Baso % (Auto) 0.6 Neut # 4.7 Lymph # 1.9 [place] # 0.4 Eos # 0.0 Baso # 0.0 PT 11.4 INR 1.0 APTT 31 Sodium Potassium Chloride Carbon Dioxide Anion Gap BUN Creatinine Est GFR ( Amer) Est GFR (Non-Af Amer) POC Glucose (mg/dL) 122 H Random Glucose Calcium Total Bilirubin AST ALT Alkaline Phosphatase Total Creatine Kinase CK-MB (Mass) Troponin I Total Protein Albumin Globulin Albumin/Globulin Ratio 09/30/17 11:33 WBC RBC Hgb Hct MCV MCH MCHC RDW Plt Count MPV Neut % (Auto) Lymph % (Auto) [place] % (Auto) Eos % (Auto) Baso % (Auto) Neut # Lymph # [place] # Eos # Baso # PT INR APTT Sodium 143 Potassium 3.7 Chloride 111 H Carbon Dioxide 22 Anion Gap 14 BUN 18 H Creatinine 1.1 Est GFR ( Amer) 59 Est GFR (Non-Af Amer) 49 POC Glucose (mg/dL) Random Glucose 110 H Calcium 9.0 Total Bilirubin 0.5 AST 26 ALT 39 Alkaline Phosphatase 63 Total Creatine Kinase 161 H CK-MB (Mass) 1.76 Troponin I 0.0200 Total Protein 6.9 Albumin 4.0 Globulin 2.8 Albumin/Globulin Ratio 1.4 Assessment & Plan (1) TIA (transient ischemic attack) Status: Acute Priority: High Comment: ? embolic with CHF (2) CHF (congestive heart failure), NYHA class II Status: Chronic Comment: chronic LV systolic, on medical treatment, had refused ICD (3) Diabetes 1.5, managed as type 2 Status: Chronic Comment: observe Decision To Admit - Pt Status Changed To: Hospital Disposition Of: Inpatient - Admit Certification Admit to Inpatient:: After my assessment, the patient will require hospitalization for at least two midnights. This is because of the severity of symptoms shown, intensity of services needed, and/or the medical risk in this patient being treated as an outpatient. - InPatient: Physician Admission Certification:: Yes - . Bed Request Type: Regular
[2017-09-30] MEDS: (Novolin R) Insulin Human Regular 100 units/ml vial SC SCH ×2 (16:50→23:06)
[2017-09-30] MEDS: Pantoprazole 40 mg EC Tab PO SCH (17:21)
[2017-09-30] MEDS: Metoprolol Succinate 100 mg XL Tab PO SCH (17:22)
[2017-09-30] MEDS: Enoxaparin 40 mg Syringe SC SCH (23:05)
[2017-10-01] MEDS: Hydrocodone/Acetaminophen 5 mg /300 mg Tab PO PRN ×3 (03:18→17:54)
[2017-10-01 07:05] LABS: BASO # 0.1 K/uL (0.0-0.2); EOS # 0.1 K/uL (0.0-0.7); EOS % 0.7 % (0.0-4.0); HEMATOCRIT 40.6 % (34.0-47.0); LYMPH # 3.7 K/uL (1.0-4.3); LYMPH % 48.5 % (20.0-40.0); MEAN CELL VOLUME 90.1 fL (81.0-99.0); MEAN CORPUSCULAR HEMOGLOBIN 29.7 pg (27.0-31.0); MEAN CORPUSCULAR HGB CONC 32.9 g/dL (33.0-37.0); MEAN PLATELET VOLUME 9.1 fL (7.2-11.7); MONO # 0.4 K/uL (0.0-0.8); MONO % 4.7 % (0.0-10.0); NRBC % 0.1 % (0.0-2.0); RED CELL DISTRIBUTION WIDTH 14.9 % (11.5-14.5); WHITE BLOOD COUNT 7.6 K/uL (4.8-10.8)
[2017-10-01 07:47] LABS: T4 10.6 ug/dL (5.5-11.0)
[2017-10-01 07:50] LABS: ALB/GLOB RATIO 1.5 (1.0-2.1); BILIRUBIN,TOTAL 0.6 mg/dL (0.2-1.3); CALCIUM 9.2 mg/dl (8.6-10.4); POTASSIUM 4.1 mmol/L (3.6-5.2); TOTAL PROTEIN 7.2 g/dL (6.3-8.3)
[2017-10-01 08:01] LABS: THYROID STIMULATING HORMONE 2.05 mIU/L (0.46-4.68)
[2017-10-01] MEDS: (Novolin R) Insulin Human Regular 100 units/ml vial SC SCH ×4 (08:25→21:13)
[2017-10-01] MEDS: Enoxaparin 40 mg Syringe SC SCH ×2 (10:00→13:00)
[2017-10-01] MEDS: Pantoprazole 40 mg EC Tab PO SCH (10:27)
[2017-10-01] MEDS: Metoprolol Succinate 100 mg XL Tab PO SCH (10:27)
[2017-10-01 12:06] LABS: HOMOCYSTEINE 11.7 umol/L (4.7-12.6)
--- NOTE | 2017-10-01 14:44 | CP.PCM.CON ---
History of Present Illness - History of Present Illness History of Present Illness: Mrs. 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 With residual EF of 25-30%, but did not want an implantable defibulator. She presented with complaints of sudden onset of headache, dizziness, slurred speech and left hand shaking that resolved completely. She denied current headache, nausea, visual changes, vomiting, weakness, sensory changes, abdominal pain, chest pain, SOB or other associated symptoms. 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 Review of Systems - Review of Systems All systems: reviewed and no additional remarkable complaints except Past Patient History - Infectious Disease Hx of Infectious Diseases: None - Past Medical History & Family History Past Medical History?: Yes - Past Social History Smoking Status: Never Smoked - CARDIAC Hx Atrial Fibrillation: No Hx Cardia Arrhythmia: No Hx Congestive Heart Failure: Yes Hx Hypercholesterolemia: No Hx Hypertension: Yes Hx Mitral Valve Prolapse: No Hx Pacemaker: No Hx Peripheral Edema: No - PULMONARY Hx Respiratory Disorders: No - NEUROLOGICAL Hx Neurological Disorder: No - HEENT Hx HEENT Problems: No - RENAL Hx Chronic Kidney Disease: No - ENDOCRINE/METABOLIC Hx Endocrine Disorders: Yes Other/Comment: Borderline diabetes - HEMATOLOGICAL/ONCOLOGICAL Hx Human Immunodeficiency Virus (HIV): No - INTEGUMENTARY Hx Dermatological Problems: No - MUSCULOSKELETAL/RHEUMATOLOGICAL Hx Arthritis: Yes - GASTROINTESTINAL Hx Crohn's Disease: No Hx Diverticulitis: Yes Hx Gall Bladder Disease: No Hx Gastritis: No Hx Pancreatitis: Yes - GENITOURINARY/GYNECOLOGICAL Hx Genitourinary Disorders: No - PSYCHIATRIC Hx Substance Use: No - SURGICAL HISTORY Hx Appendectomy: No Hx Carotid Endarterectomy: No Hx Cholecystectomy: No Hx Coronary Artery Bypass Graft: No Hx Coronary Stent: No Hx Tonsillectomy: No - ANESTHESIA Hx Anesthesia: Yes Hx Anesthesia Reactions: No Hx Malignant Hyperthermia: No Meds Allergies/Adverse Reactions: Allergies Allergy/AdvReac Type Severity Reaction Status Date / Time enalaprilat [From Vasotec] Allergy RASH Verified 09/30/17 10:32 hydrochlorothiazide Allergy RASH Verified 09/30/17 10:32 - Medications Medications: Current Medications Acetaminophen (Tylenol 325mg Tab) 650 mg PO Q6 PRN PRN Reason: Fever >100.4 F Acetaminophen/Hydrocodone Bitart (Vicodin 5 Mg-300 Mg) 1 tab PO Q4H PRN PRN Reason: Pain, moderate (4-7) Stop: 10/07/17 15:38 Last Admin: 10/01/17 07:48 Dose: 1 tab Aspirin (Aspirin Chewable) 81 mg PO DAILY [facility] Last Admin: 10/01/17 10:13 Dose: 81 mg Docusate Sodium (Colace) 100 mg PO BID [facility] Last Admin: 10/01/17 10:13 Dose: 100 mg Enoxaparin Sodium (Lovenox) 40 mg SC DAILY [facility] Last Admin: 10/01/17 13:00 Dose: 40 mg Furosemide (Lasix) 40 mg PO DAILY [facility] Last Admin: 10/01/17 10:27 Dose: 40 mg Insulin Human Regular (Novolin R) 0 unit SC [facility] PRN Reason: Protocol Last Admin: 10/01/17 13:09 Dose: Not Given Losartan Potassium (Cozaar) 100 mg PO DAILY [facility] Last Admin: 10/01/17 10:13 Dose: 100 mg Metoprolol Succinate (Toprol Xl) 100 mg PO DAILY [facility] Last Admin: 10/01/17 10:27 Dose: 100 mg Ondansetron HCl (Zofran Inj) 4 mg IVP Q6 PRN PRN Reason: Nausea/Vomiting Pantoprazole Sodium (Protonix Ec Tab) 40 mg PO DAILY [facility] Last Admin: 10/01/17 10:27 Dose: 40 mg Physical Exam - Constitutional Appears: Well - Head Exam Head Exam: ATRAUMATIC, NORMAL INSPECTION, NORMOCEPHALIC - Eye Exam Eye Exam: EOMI, Normal appearance, PERRL Pupil Exam: NORMAL ACCOMODATION, PERRL - ENT Exam ENT Exam: Mucous Membranes Moist, Normal Exam - Neck Exam Neck exam: Positive for: Normal Inspection - Respiratory Exam Respiratory Exam: Clear to Auscultation Bilateral, NORMAL BREATHING PATTERN - Cardiovascular Exam Cardiovascular Exam: REGULAR RHYTHM - GI/Abdominal Exam GI & Abdominal Exam: Normal Bowel Sounds, Soft. absent: Tenderness - Rectal Exam Rectal Exam: Deferred - Extremities Exam Extremities exam: Positive for: normal inspection - Back Exam Back exam: NORMAL INSPECTION - Neurological Exam Neurological exam: Alert, CN II-XII Intact, Normal Gait, Oriented x3, Reflexes Normal - Psychiatric Exam Psychiatric exam: Normal Affect, Normal Mood Results - Vital Signs Recent Vital Signs: Last Vital Signs Temp 98.2 F 10/01/17 07:35 Pulse 65 10/01/17 07:35 Resp 18 10/01/17 07:35 BP 128/75 10/01/17 10:27 Pulse Ox 97 10/01/17 07:35 - Labs Result Diagrams: 10/01/17 06:47 10/01/17 06:47 Labs: Laboratory Results - last 24 hr 09/30/17 09/30/17 10/01/17 17:30 21:30 06:31 WBC RBC Hgb Hct MCV MCH MCHC RDW Plt Count MPV Neut % (Auto) Lymph % (Auto) [place] % (Auto) Eos % (Auto) Baso % (Auto) Neut # Lymph # [place] # Eos # Baso # ESR Sodium Potassium Chloride Carbon Dioxide Anion Gap BUN Creatinine Est GFR ( Amer) Est GFR (Non-Af Amer) POC Glucose (mg/dL) 80 126 H 101 Random Glucose Calcium Total Bilirubin AST ALT Alkaline Phosphatase Total Protein Albumin Globulin Albumin/Globulin Ratio Triglycerides Cholesterol LDL Cholesterol Direct HDL Cholesterol Vitamin B12 25-OH Vitamin D Total Homocysteine Thyroxine (T4) Total T3 TSH 3rd Generation 10/01/17 10/01/17 10/01/17 06:47 06:47 07:13 WBC 7.6 RBC 4.51 Hgb 13.4 Hct 40.6 MCV 90.1 MCH 29.7 MCHC 32.9 L RDW 14.9 H Plt Count 267 MPV 9.1 Neut % (Auto) 45.1 L Lymph % (Auto) 48.5 H [place] % (Auto) 4.7 Eos % (Auto) 0.7 Baso % (Auto) 1.0 Neut # 3.4 Lymph # 3.7 [place] # 0.4 Eos # 0.1 Baso # 0.1 ESR Sodium 143 Potassium 4.1 Chloride 110 H Carbon Dioxide 23 Anion Gap 14 BUN 19 H Creatinine 1.1 Est GFR ( Amer) 59 Est GFR (Non-Af Amer) 49 POC Glucose (mg/dL) Random Glucose 104 Calcium 9.2 Total Bilirubin 0.6 AST 25 ALT 40 Alkaline Phosphatase 68 Total Protein 7.2 Albumin 4.3 Globulin 2.9 Albumin/Globulin Ratio 1.5 Triglycerides 61 D Cholesterol 155 LDL Cholesterol Direct 71 HDL Cholesterol 59 Vitamin B12 334 25-OH Vitamin D Total Homocysteine 11.7 Thyroxine (T4) 10.6 Total T3 1.61 TSH 3rd Generation 2.05 10/01/17 10/01/17 10/01/17 07:13 07:13 12:56 WBC RBC Hgb Hct MCV MCH MCHC RDW Plt Count MPV Neut % (Auto) Lymph % (Auto) [place] % (Auto) Eos % (Auto) Baso % (Auto) Neut # Lymph # [place] # Eos # Baso # ESR 18 Sodium Potassium Chloride Carbon Dioxide Anion Gap BUN Creatinine Est GFR ( Amer) Est GFR (Non-Af Amer) POC Glucose (mg/dL) 143 H Random Glucose Calcium Total Bilirubin AST ALT Alkaline Phosphatase Total Protein Albumin Globulin Albumin/Globulin Ratio Triglycerides Cholesterol LDL Cholesterol Direct HDL Cholesterol Vitamin B12 25-OH Vitamin D Total 18.1 L Homocysteine Thyroxine (T4) Total T3 TSH 3rd Generation Assessment & Plan (1) TIA (transient ischemic attack) Assessment and Plan: Will obtain TIA work-up (MRI brain, MRA head/neck, echocardiogram with bubble study, lipid panel, HbA1c, B12, folate, TSH, vitamin D levels), start aspirin 81 mg daily, check lipid panel and start medium to high dose statin to maintain LDL< 70. Will order EEG since the left arm shaking and evidence or right frontal infarct could be consistent with seizure. Thank you. Status: Acute Priority: High
[2017-10-01] MEDS ORDERED: Iodixanol 320 MG/ML 100 ML BOTTLE IV ONE (15:55)
--- NOTE | 2017-10-01 17:09 | CT ---
PROCEDURE: CT Angiography of the Brain. HISTORY: TIA COMPARISON: None available. TECHNIQUE: CT angiography of the intracranial arteries was performed. Coronal and sagittal maximum intensity projection reformated images were generated. Total exam DLP equals 650.89 mGy-cm. This CT exam was performed using one or more of the following dose reduction techniques: Automated exposure control, adjustment of the mA and/or kV according to patient size, and/or use of iterative reconstruction technique. FINDINGS: INTERNAL CEREBRAL ARTERIES: Unremarkable. The skull base, petrous, cavernous and supraclinoid segments are bilaterally widely patent. ANTERIOR CEREBRAL ARTERIES: Unremarkable. A1 and A2 segments are widely patent. Smaller distal branches unremarkable, as visualized. MIDDLE CEREBRAL ARTERIES: Unremarkable. M1 and M2 segments are widely patent. Perisylvian branches grossly symmetric. POSTERIOR CIRCULATION: Basilar Artery: Unremarkable. Distal Vertebral Arteries: Unremarkable. Posterior Cerebral Arteries: Unremarkable. Posterior Inferior Cerebellar Arteries: Unremarkable. NECK CTA RESULTS: Common carotid arteries: The bilateral common carotid appear widely patent from their origins to their bifurcations with no significant stenosis appreciated. No evidence to suggest common carotid artery dissection. Internal carotid arteries: No significant stenosis is appreciated throughout the cervical internal carotid artery segments bilaterally and there is no evidence of dissection either. Vertebral arteries: The bilateral vertebral arteries appear normal in caliber from their origins to their junction with the basilar artery. Vertebrobasilar system appears left dominant. No significant stenosis or definite pattern of dissection. Incidentally, the bilateral subclavian arteries are widely patent as well as the brachiocephalic artery. ANEURYSM/ VASCULAR MALFORMATIONS: None. OTHER FINDINGS: None. IMPRESSION: Unremarkable CT Brain and Neck.
--- NOTE | 2017-10-01 22:17 | CARD ---
APPROVED REPORT EKG Measurement Heart [id number] OK [id number] <Conclusion> Normal sinus rhythm Possible Left atrial enlargement Left bundle branch block Abnormal ECG
--- NOTE | 2017-10-01 22:35 | CP.PCM.PN ---
Subjective - Date & Time of Evaluation Date of Evaluation: 10/01/17 Time of Evaluation: 18:00 - Subjective Subjective: seen by neuro, probable embolic with chf started xarelto, follow-up with MRI and MRA Objective - Vital Signs/Intake and Output Vital Signs (last 24 hours): Temp Pulse Resp BP Pulse Ox 98 F 61 18 119/75 98 10/01/17 16:00 10/01/17 16:00 10/01/17 16:00 10/01/17 16:00 10/01/17 16:00 Intake and Output: 10/01/17 10/01/17 06:59 18:59 Intake Total 10 Balance 10 - Medications Medications: Current Medications Acetaminophen (Tylenol 325mg Tab) 650 mg PO Q6 PRN PRN Reason: Fever >100.4 F Acetaminophen/Hydrocodone Bitart (Vicodin 5 Mg-300 Mg) 1 tab PO Q4H PRN PRN Reason: Pain, moderate (4-7) Stop: 10/07/17 15:38 Last Admin: 10/01/17 17:54 Dose: 1 tab Aspirin (Aspirin Chewable) 81 mg PO DAILY [facility] Last Admin: 10/01/17 10:13 Dose: 81 mg Docusate Sodium (Colace) 100 mg PO BID [facility] Last Admin: 10/01/17 17:53 Dose: 100 mg Enoxaparin Sodium (Lovenox) 40 mg SC DAILY [facility] Last Admin: 10/01/17 13:00 Dose: 40 mg Furosemide (Lasix) 40 mg PO DAILY [facility] Last Admin: 10/01/17 10:27 Dose: 40 mg Insulin Human Regular (Novolin R) 0 unit SC [facility] PRN Reason: Protocol Last Admin: 10/01/17 17:12 Dose: Not Given Losartan Potassium (Cozaar) 100 mg PO DAILY [facility] Last Admin: 10/01/17 10:13 Dose: 100 mg Metoprolol Succinate (Toprol Xl) 100 mg PO DAILY [facility] Last Admin: 10/01/17 10:27 Dose: 100 mg Ondansetron HCl (Zofran Inj) 4 mg IVP Q6 PRN PRN Reason: Nausea/Vomiting Pantoprazole Sodium (Protonix Ec Tab) 40 mg PO DAILY [facility] Last Admin: 10/01/17 10:27 Dose: 40 mg Rivaroxaban (Xarelto) 20 mg PO DAILY [facility] Rosuvastatin Calcium (Crestor) 5 mg PO HS [facility] - Labs Labs: 10/01/17 06:47 10/01/17 06:47 PT 11.4 SECONDS (9.7-12.2) 09/30/17 11:33 INR 1.0 09/30/17 11:33 APTT 31 SECONDS (21-34) 09/30/17 11:33 - Constitutional Appears: Non-toxic - Head Exam Head Exam: ATRAUMATIC - Eye Exam Eye Exam: EOMI - ENT Exam ENT Exam: Mucous Membranes Moist - Neck Exam Neck Exam: absent: Lymphadenopathy, Thyromegaly - Respiratory Exam Respiratory Exam: Clear to Ausculation Bilateral. absent: Rales - Cardiovascular Exam Cardiovascular Exam: REGULAR RHYTHM, Murmur - GI/Abdominal Exam GI & Abdominal Exam: Normal Bowel Sounds. absent: Organomegaly - Rectal Exam Rectal Exam: Deferred - Extremities Exam Extremities Exam: Normal Capillary Refill. absent: Calf Tenderness - Neurological Exam Neurological Exam: Alert, Oriented x3 - Skin Skin Exam: Dry Assessment and Plan (1) TIA (transient ischemic attack) Status: Acute (2) CHF (congestive heart failure), NYHA class II Status: Chronic (3) Diabetes 1.5, managed as type 2 Status: Chronic
[2017-10-02] MEDS: (Novolin R) Insulin Human Regular 100 units/ml vial SC SCH ×4 (08:03→21:32)
[2017-10-02] MEDS: Metoprolol Succinate 100 mg XL Tab PO SCH (10:17)
[2017-10-02] MEDS: Enoxaparin 40 mg Syringe SC SCH (10:17)
[2017-10-02] MEDS: Pantoprazole 40 mg EC Tab PO SCH (10:17)
--- NOTE | 2017-10-02 13:12 | CP.PCM.PN ---
Subjective - Date & Time of Evaluation Date of Evaluation: 10/02/17 Time of Evaluation: 12:00 - Subjective Subjective: No further CVA, follow-up with carotid Doppler and MRI. Objective - Vital Signs/Intake and Output Vital Signs (last 24 hours): Temp Pulse Resp BP Pulse Ox 98.0 F 61 20 114/71 97 10/02/17 07:25 10/02/17 08:08 10/02/17 07:25 10/02/17 10:17 10/02/17 07:25 Intake and Output: 10/02/17 10/02/17 06:59 18:59 Intake Total 240 Balance 240 - Medications Medications: Current Medications Acetaminophen (Tylenol 325mg Tab) 650 mg PO Q6 PRN PRN Reason: Fever >100.4 F Acetaminophen/Hydrocodone Bitart (Vicodin 5 Mg-300 Mg) 1 tab PO Q4H PRN PRN Reason: Pain, moderate (4-7) Stop: 10/07/17 15:38 Last Admin: 10/01/17 17:54 Dose: 1 tab Aspirin (Aspirin Chewable) 81 mg PO DAILY [facility] Last Admin: 10/02/17 10:18 Dose: 81 mg Docusate Sodium (Colace) 100 mg PO BID [facility] Last Admin: 10/02/17 10:17 Dose: 100 mg Enoxaparin Sodium (Lovenox) 40 mg SC DAILY [facility] Last Admin: 10/02/17 10:17 Dose: 40 mg Furosemide (Lasix) 40 mg PO DAILY [facility] Last Admin: 10/02/17 10:17 Dose: 40 mg Insulin Human Regular (Novolin R) 0 unit SC [facility] PRN Reason: Protocol Last Admin: 10/02/17 08:03 Dose: Not Given Losartan Potassium (Cozaar) 100 mg PO DAILY [facility] Last Admin: 10/02/17 10:17 Dose: 100 mg Metoprolol Succinate (Toprol Xl) 100 mg PO DAILY [facility] Last Admin: 10/02/17 10:17 Dose: 100 mg Ondansetron HCl (Zofran Inj) 4 mg IVP Q6 PRN PRN Reason: Nausea/Vomiting Pantoprazole Sodium (Protonix Ec Tab) 40 mg PO DAILY [facility] Last Admin: 10/02/17 10:17 Dose: 40 mg Rivaroxaban (Xarelto) 20 mg PO DAILY [facility] Last Admin: 10/02/17 10:44 Dose: 20 mg Rosuvastatin Calcium (Crestor) 5 mg PO HS [facility] Last Admin: 10/01/17 21:09 Dose: 5 mg - Labs Labs: 10/01/17 06:47 10/01/17 06:47 PT 11.4 SECONDS (9.7-12.2) 09/30/17 11:33 INR 1.0 09/30/17 11:33 APTT 31 SECONDS (21-34) 09/30/17 11:33 - Constitutional Appears: Non-toxic - Head Exam Head Exam: ATRAUMATIC - Eye Exam Eye Exam: EOMI - ENT Exam ENT Exam: Mucous Membranes Moist - Neck Exam Neck Exam: absent: Lymphadenopathy, Thyromegaly - Respiratory Exam Respiratory Exam: Clear to Ausculation Bilateral. absent: Rales - Cardiovascular Exam Cardiovascular Exam: REGULAR RHYTHM, Murmur - GI/Abdominal Exam GI & Abdominal Exam: Normal Bowel Sounds. absent: Organomegaly - Rectal Exam Rectal Exam: Deferred - Extremities Exam Extremities Exam: Normal Capillary Refill. absent: Calf Tenderness - Neurological Exam Neurological Exam: Alert, Oriented x3 - Psychiatric Exam Psychiatric exam: Normal Mood - Skin Skin Exam: Dry Assessment and Plan (1) TIA (transient ischemic attack) Status: Acute (2) CHF (congestive heart failure), NYHA class II Status: Chronic (3) Diabetes 1.5, managed as type 2 Status: Chronic
--- NOTE | 2017-10-02 15:15 | VASCLAB ---
PROCEDURE: HISTORY: TIA COMPARISON: No previous carotid duplex exam. CTA done 10/01/2017. TECHNIQUE: Grayscale and duplex Doppler evaluation of the cervical carotid and vertebral arteries were performed. The common carotid, carotid bifurcations and cervical Internal Carotid Artery (ICA) and proximal External Carotid Artery (ECA) were evaluated. The vertebral arteries were evaluated for gross patency and flow direction. Report prepared by FIDELIA Vladerrama FINDINGS: RIGHT CAROTID ARTERIES: 1. Common Carotid Artery: No significant focal plaque formation of the right common carotid artery. Maximum Peak Systolic velocity: 108 cm/sec: End-diastolic velocity 13 cm/sec. 2. Carotid Bifurcation: No significant focal plaque formation. Maximum Peak Systolic velocity: 50 cm/sec: End-diastolic velocity 9 cm/sec. 3. Internal Carotid Artery: Plaque description: 3.1. Proximal Segment: Peak systolic velocity 100 cm/sec: End-diastolic velocity 26 cm/sec - % stenosis 0-15% 3.2. Middle Segment: Peak systolic velocity 66 cm/sec: End-diastolic velocity 23 cm/sec - % stenosis 0-15% 3.3. Distal Segment: Peak systolic velocity 83 cm/sec: End-diastolic velocity 18 cm/sec - % stenosis 0-15% 4. External Carotid Artery: No significant focal plaque formation. Peak systolic velocity 59 cm/sec 5. ICA/CCA Ratio: 1.3 LEFT CAROTID ARTERIES: 1. Common Carotid Artery: No significant focal plaque formation of the left common carotid artery. Maximum Peak Systolic velocity: 103 cm/sec: End-diastolic velocity 14 cm/sec. 2. Carotid Bifurcation: No significant focal plaque formation. Maximum Peak Systolic velocity: 65 cm/sec: End-diastolic velocity 12 cm/sec. 3. Internal Carotid Artery: Plaque description: 3.1. Proximal Segment: Peak systolic velocity 60 cm/sec: End-diastolic velocity 21 cm/sec - % stenosis 0-15% 3.2. Middle Segment: Peak systolic velocity 87 cm/sec: End-diastolic velocity 26 cm/sec - % stenosis 0-15% 3.3. Distal Segment: Peak systolic velocity 94 cm/sec: End-diastolic velocity 23 cm/sec - % stenosis 0-15% 4. External Carotid Artery: No significant focal plaque formation. Peak systolic velocity 76 cm/sec 5. ICA/CCA Ratio: 1.4 VERTEBRAL ARTERIES: 1. Right Vertebral Artery: The right vertebral artery flow direction is antegrade. 2. Left Vertebral Artery: The left vertebral artery flow direction is antegrade. OTHER FINDINGS: 1. Right Brachial Blood pressure: 120 mmHg. 2. Left Brachial Blood pressure: 115 mmHg. IMPRESSION: RIGHT: Duplex scan does not suggest hemodynamically significant stenosis of the right extracranial carotid arteries. LEFT: Duplex scan does not suggest hemodynamically significant stenosis of the left extracranial carotid arteries.
[2017-10-03 08:15] VITALS: TEMP 97.7
[2017-10-03] MEDS: (Novolin R) Insulin Human Regular 100 units/ml vial SC SCH ×3 (08:29→17:15)
--- NOTE | 2017-10-03 09:51 | CP.PCM.PN ---
Subjective - Date & Time of Evaluation Date of Evaluation: 10/03/17 Time of Evaluation: 09:48 - Subjective Subjective: Ms. Lorenzo was seen and examined at the bedside. She is alert, oriented in all spheres. She denies any dizziness, lightheadedness, headache, numbness, nausea, or vomiting. She is able to follow simple commands. There was no untoward events overnight. Objective - Vital Signs/Intake and Output Vital Signs (last 24 hours): Temp Pulse Resp BP Pulse Ox 97.7 F 80 18 126/70 96 10/03/17 08:14 10/03/17 08:14 10/03/17 08:14 10/03/17 08:14 10/03/17 08:14 Intake and Output: 10/03/17 10/03/17 06:59 18:59 Intake Total 460 Balance 460 - Medications Medications: Current Medications Acetaminophen (Tylenol 325mg Tab) 650 mg PO Q6 PRN PRN Reason: Fever >100.4 F Acetaminophen/Hydrocodone Bitart (Vicodin 5 Mg-300 Mg) 1 tab PO Q4H PRN PRN Reason: Pain, moderate (4-7) Stop: 10/07/17 15:38 Last Admin: 10/01/17 17:54 Dose: 1 tab Aspirin (Aspirin Chewable) 81 mg PO DAILY [facility] Last Admin: 10/02/17 10:18 Dose: 81 mg Docusate Sodium (Colace) 100 mg PO BID [facility] Last Admin: 10/02/17 18:05 Dose: 100 mg Enoxaparin Sodium (Lovenox) 40 mg SC DAILY [facility] Last Admin: 10/02/17 10:17 Dose: 40 mg Furosemide (Lasix) 40 mg PO DAILY [facility] Last Admin: 10/02/17 10:17 Dose: 40 mg Insulin Human Regular (Novolin R) 0 unit SC ACHS [facility] PRN Reason: Protocol Last Admin: 10/03/17 08:29 Dose: Not Given Losartan Potassium (Cozaar) 100 mg PO DAILY [facility] Last Admin: 10/02/17 10:17 Dose: 100 mg Metoprolol Succinate (Toprol Xl) 100 mg PO DAILY [facility] Last Admin: 10/02/17 10:17 Dose: 100 mg Ondansetron HCl (Zofran Inj) 4 mg IVP Q6 PRN PRN Reason: Nausea/Vomiting Pantoprazole Sodium (Protonix Ec Tab) 40 mg PO DAILY [facility] Last Admin: 10/02/17 10:17 Dose: 40 mg Rivaroxaban (Xarelto) 20 mg PO DAILY [facility] Last Admin: 10/02/17 10:44 Dose: 20 mg Rosuvastatin Calcium (Crestor) 5 mg PO HS [facility] Last Admin: 10/02/17 21:31 Dose: 5 mg - Labs Labs: 10/01/17 06:47 10/01/17 06:47 PT 11.4 SECONDS (9.7-12.2) 09/30/17 11:33 INR 1.0 09/30/17 11:33 APTT 31 SECONDS (21-34) 09/30/17 11:33 - Constitutional Appears: No Acute Distress - Head Exam Head Exam: ATRAUMATIC - Cardiovascular Exam Additional comments: Shortness of breath with extraneous activity - Neurological Exam Neurological Exam: Alert, Awake, CN II-XII Intact, Oriented x3 Neuro motor strength exam: Left Upper Extremity: 5, Right Upper Extremity: 5, Left Lower Extremity: 5, Right Lower Extremity: 5 Additional comments: Neurological improved from previous examination. Assessment and Plan (1) TIA (transient ischemic attack) Assessment & Plan: Case discussed with Dr. Lacey, recommend MRI of the brain and MRA of the head and neck. Continue all current medical regimen. Status: Acute
[2017-10-03] MEDS: Pantoprazole 40 mg EC Tab PO SCH (11:39)
[2017-10-03] MEDS: Enoxaparin 40 mg Syringe SC SCH (11:42)
[2017-10-03] MEDS: Metoprolol Succinate 100 mg XL Tab PO SCH (11:48)
--- NOTE | 2017-10-03 12:55 | CP.PCM.PN ---
Subjective - Date & Time of Evaluation Date of Evaluation: 10/03/17 Time of Evaluation: 12:00 - Subjective Subjective: No new TIA, CHF is stable clinically for ICD as outpatient, follow-up with MRI and carotid Doppler as outpatient. Objective - Vital Signs/Intake and Output Vital Signs (last 24 hours): Temp Pulse Resp BP Pulse Ox 97.7 F 80 18 123/69 96 10/03/17 08:14 10/03/17 08:14 10/03/17 08:14 10/03/17 11:39 10/03/17 08:14 Intake and Output: 10/03/17 10/03/17 06:59 18:59 Intake Total 460 Balance 460 - Medications Medications: Current Medications Acetaminophen (Tylenol 325mg Tab) 650 mg PO Q6 PRN PRN Reason: Fever >100.4 F Acetaminophen/Hydrocodone Bitart (Vicodin 5 Mg-300 Mg) 1 tab PO Q4H PRN PRN Reason: Pain, moderate (4-7) Stop: 10/07/17 15:38 Last Admin: 10/01/17 17:54 Dose: 1 tab Aspirin (Aspirin Chewable) 81 mg PO DAILY [facility] Last Admin: 10/03/17 11:39 Dose: 81 mg Docusate Sodium (Colace) 100 mg PO BID [facility] Last Admin: 10/03/17 11:39 Dose: 100 mg Furosemide (Lasix) 40 mg PO DAILY [facility] Last Admin: 10/03/17 11:39 Dose: 40 mg Insulin Human Regular (Novolin R) 0 unit SC ACHS [facility] PRN Reason: Protocol Last Admin: 10/03/17 12:08 Dose: Not Given Losartan Potassium (Cozaar) 100 mg PO DAILY [facility] Last Admin: 10/03/17 11:38 Dose: 100 mg Metoprolol Succinate (Toprol Xl) 100 mg PO DAILY [facility] Last Admin: 10/03/17 11:48 Dose: 100 mg Ondansetron HCl (Zofran Inj) 4 mg IVP Q6 PRN PRN Reason: Nausea/Vomiting Pantoprazole Sodium (Protonix Ec Tab) 40 mg PO DAILY [facility] Last Admin: 10/03/17 11:39 Dose: 40 mg Rivaroxaban (Xarelto) 20 mg PO DAILY [facility] Last Admin: 10/03/17 11:41 Dose: 20 mg Rosuvastatin Calcium (Crestor) 5 mg PO HS [facility] Last Admin: 10/02/17 21:31 Dose: 5 mg - Labs Labs: 10/01/17 06:47 10/01/17 06:47 PT 11.4 SECONDS (9.7-12.2) 09/30/17 11:33 INR 1.0 09/30/17 11:33 APTT 31 SECONDS (21-34) 09/30/17 11:33 - Constitutional Appears: Non-toxic - Head Exam Head Exam: ATRAUMATIC - Eye Exam Eye Exam: EOMI - ENT Exam ENT Exam: Mucous Membranes Moist - Neck Exam Neck Exam: absent: Lymphadenopathy, Thyromegaly - Respiratory Exam Respiratory Exam: Clear to Ausculation Bilateral. absent: Rales - Cardiovascular Exam Cardiovascular Exam: REGULAR RHYTHM, Murmur - GI/Abdominal Exam GI & Abdominal Exam: Normal Bowel Sounds. absent: Tenderness, Organomegaly - Rectal Exam Rectal Exam: Deferred - Extremities Exam Extremities Exam: Normal Capillary Refill. absent: Calf Tenderness - Neurological Exam Neurological Exam: Alert, Oriented x3 - Psychiatric Exam Psychiatric exam: Normal Mood - Skin Skin Exam: Dry Assessment and Plan (1) TIA (transient ischemic attack) Status: Acute (2) CHF (congestive heart failure), NYHA class II Status: Chronic (3) Diabetes 1.5, managed as type 2 Status: Chronic
--- NOTE | 2017-10-03 12:57 | CP.PCM.DIS ---
Provider - Provider Date of Admission: 09/30/17 14:12 Attending physician: Atif Garay MD Time Spent in preparation of Discharge (in minutes): 20 Diagnosis - Discharge Diagnosis (1) TIA (transient ischemic attack) Status: Acute Priority: High (2) CHF (congestive heart failure), NYHA class II Status: Chronic (3) Diabetes 1.5, managed as type 2 Status: Chronic Hospital Course - Lab Results Lab Results: Most Recent Lab Values WBC 7.6 K/uL (4.8-10.8) 10/01/17 06:47 RBC 4.51 Mil/uL (3.80-5.20) 10/01/17 06:47 Hgb 13.4 g/dL (11.0-16.0) 10/01/17 06:47 Hct 40.6 % (34.0-47.0) 10/01/17 06:47 MCV 90.1 fL (81.0-99.0) 10/01/17 06:47 MCH 29.7 pg (27.0-31.0) 10/01/17 06:47 MCHC 32.9 g/dL (33.0-37.0) L 10/01/17 06:47 RDW 14.9 % (11.5-14.5) H 10/01/17 06:47 Plt Count 267 K/uL (130-400) 10/01/17 06:47 MPV 9.1 fL (7.2-11.7) 10/01/17 06:47 Neut % (Auto) 45.1 % (50.0-75.0) L 10/01/17 06:47 Lymph % (Auto) 48.5 % (20.0-40.0) H 10/01/17 06:47 Bay % (Auto) 4.7 % (0.0-10.0) 10/01/17 06:47 Eos % (Auto) 0.7 % (0.0-4.0) 10/01/17 06:47 Baso % (Auto) 1.0 % (0.0-2.0) 10/01/17 06:47 Neut # 3.4 K/uL (1.8-7.0) 10/01/17 06:47 Lymph # 3.7 K/uL (1.0-4.3) 10/01/17 06:47 Bay # 0.4 K/uL (0.0-0.8) 10/01/17 06:47 Eos # 0.1 K/uL (0.0-0.7) 10/01/17 06:47 Baso # 0.1 K/uL (0.0-0.2) 10/01/17 06:47 ESR 18 mm/hr (0-20) 10/01/17 07:13 PT 11.4 SECONDS (9.7-12.2) 09/30/17 11:33 INR 1.0 09/30/17 11:33 APTT 31 SECONDS (21-34) 09/30/17 11:33 Sodium 143 mmol/L (132-148) 10/01/17 06:47 Potassium 4.1 mmol/L (3.6-5.2) 10/01/17 06:47 Chloride 110 mmol/L (98-107) H 10/01/17 06:47 Carbon Dioxide 23 mmol/L (22-30) 10/01/17 06:47 Anion Gap 14 (10-20) 10/01/17 06:47 BUN 19 mg/dL (7-17) H 10/01/17 06:47 Creatinine 1.1 mg/dL (0.7-1.2) 10/01/17 06:47 Est GFR ( Amer) 59 10/01/17 06:47 Est GFR (Non-Af Amer) 49 10/01/17 06:47 POC Glucose (mg/dL) 76 mg/dL (65-110) 10/03/17 11:17 Random Glucose 104 mg/dL (65-105) 10/01/17 06:47 Hemoglobin A1c 5.7 % (4.2-6.5) 10/01/17 06:47 Calcium 9.2 mg/dl (8.6-10.4) 10/01/17 06:47 Total Bilirubin 0.6 mg/dL (0.2-1.3) 10/01/17 06:47 AST 25 U/L (14-36) 10/01/17 06:47 ALT 40 U/L (9-52) 10/01/17 06:47 Alkaline Phosphatase 68 U/L (38-126) 10/01/17 06:47 Total Creatine Kinase 161 U/L (30-135) H 09/30/17 11:33 CK-MB (Mass) 1.76 ng/mL (0.0-3.38) 09/30/17 11:33 Troponin I 0.0200 ng/mL (0.00-0.120) 09/30/17 11:33 Total Protein 7.2 g/dL (6.3-8.3) 10/01/17 06:47 Albumin 4.3 g/dL (3.5-5.0) 10/01/17 06:47 Globulin 2.9 gm/dL (2.2-3.9) 10/01/17 06:47 Albumin/Globulin Ratio 1.5 (1.0-2.1) 10/01/17 06:47 Triglycerides 61 mg/dL (0-149) D 10/01/17 07:13 Cholesterol 155 mg/dL (0-199) 10/01/17 07:13 LDL Cholesterol Direct 71 mg/dL (0-129) 10/01/17 07:13 HDL Cholesterol 59 mg/dL (30-70) 10/01/17 07:13 Vitamin B12 334 pg/mL (239-931) 10/01/17 07:13 25-OH Vitamin D Total 18.1 NG/ML (30.0-100.0) L 10/01/17 07:13 Homocysteine 11.7 umol/L (4.7-12.6) 10/01/17 07:13 Thyroxine (T4) 10.6 ug/dL (5.5-11.0) 10/01/17 07:13 Total T3 1.61 nmol/L (1.49-2.60) 10/01/17 07:13 TSH 3rd Generation 2.05 mIU/L (0.46-4.68) 10/01/17 07:13 - Hospital Course Hospital Course: 72-year-old with dilated cardiomyopathy was admitted with a transient ischemic attack. Went poor LV it's probably an LV embolic phenomena, started on non- Coumadin oral anticoagulation which continue follow-up with MRI and carotid Doppler as outpatient. Discharge Exam - Head Exam Head Exam: ATRAUMATIC - Eye Exam Eye Exam: EOMI - ENT Exam ENT Exam: Mucous Membranes Moist - Neck Exam Neck exam: Full Rom - Respiratory Exam Respiratory Exam: Clear to PA & Lateral. absent: Rales - Cardiovascular Exam Cardiovascular Exam: REGULAR RHYTHM, Systolic Murmur - GI/Abdominal Exam GI & Abdominal Exam: Normal Bowel Sounds. absent: Organomegaly - Rectal Exam Rectal Exam: Deferred - Extremities Exam Extremities exam: normal capillary refill - Neurological Exam Neurological exam: Alert, Oriented x3 - Psychiatric Exam Psychiatric exam: Normal Mood - Skin Skin Exam: Dry Discharge Plan - Follow Up Plan Condition: GOOD Disposition: HOME/ ROUTINE Instructions: Transient Ischemic Attack (GEN)
--- NOTE | 2017-10-03 14:24 | MRI ---
PROCEDURE: Magnetic Resonance Angiography Brain HISTORY: TIA COMPARISON: CTA head from 10/01/2017. TECHNIQUE: 3D time of flight MR angiography of the intracranial arteries was performed. Rotating maximum intensity projection images were generated. FINDINGS: INTERNAL CAROTID ARTERIES: Normal flow related signal. The skull base, petrous, cavernous and supraclinoid segments are bilaterally widely patient. ANTERIOR CEREBRAL ARTERIES: Normal flow related signal. A1 and A2 segments are widely patent. Smaller distal branches unremarkable, as visualized. MIDDLE CEREBRAL ARTERIES: Normal flow related signal. M1 and M2 segments are widely patent. Perisylvian branches grossly symmetric. POSTERIOR CIRCULATION: Basilar Artery: Normal in caliber. Distal Vertebral Arteries: Normal in caliber. The left vertebral artery is dominant, an anatomic variant Posterior Cerebral Arteries: There is origin of the posterior cerebral arteries, an anatomic variant. Posterior Inferior Cerebellar Arteries: Normal in caliber. ANEURYSM/ VASCULAR MALFORMATIONS: None. OTHER FINDINGS: None. IMPRESSION: Normal MR angiography of the brain.
--- NOTE | 2017-10-03 14:43 | MRI ---
PROCEDURE: MR Angiography of the neck without contrast HISTORY: TIA COMPARISON: CTA neck from 10/01/2017. TECHNIQUE: 3D [id number] angiography of the neck was performed. Rotating maximum intensity projection images of the cervical carotid and vertebral arteries were generated. The origins of the common carotid arteries were not visualized, which is a limitation inherent to the non-contrast time of flight technique. FINDINGS: RIGHT CAROTID ARTERIES: Common Carotid Artery: Normal. Carotid Bifurcation: Normal. Internal Carotid Artery:Normal. External Carotid Artery (proximal branches): Normal. LEFT CAROTID ARTERIES: Common Carotid Artery: Normal. Carotid Bifurcation: Normal. Internal Carotid Artery:Normal. External Carotid Artery (proximal branches): Normal. VERTEBRAL ARTERIES: Right Vertebral Artery: Normal. Left Vertebral Artery: Normal. OTHER FINDINGS: None. IMPRESSION: Normal MR Angiography of the neck.
--- NOTE | 2017-10-03 15:02 | MRI ---
PROCEDURE: MRI BRAIN WITHOUT CONTRAST HISTORY: TIA COMPARISON: Noncontrast head CT from 09/30/2017 TECHNIQUE: Multiplanar, multisequence MR images of the brain were obtained without intravenous contrast enhancement. FINDINGS: HEMORRHAGE: None DWI: There is a small focus of acute infarction in the left superior cerebellar hemisphere. BRAIN PARENCHYMA: There is cystic encephalomalacia and gliosis in the right frontal subcortical white matter. There are mild chronic microangiopathic changes. There is no mass, mass effect or abnormal extra-axial fluid collection. The midline sagittal structures are normal. VENTRICLES: There is mild age-related global parenchymal volume loss and proportionate enlargement of the ventricles and cortical sulci. CRANIUM: There is normal bone marrow signal pattern. ORBITS: Grossly unremarkable. PARANASAL SINUSES/MASTOIDS: Predominantly clear. VASCULAR SYSTEM: There are normal signal voids in the larger intracranial arteries. OTHER FINDINGS: None. IMPRESSION: 1. Small acute infarction in the left superior cerebellar hemisphere. 2. Focal cystic encephalomalacia and gliosis in the right frontal subcortical white matter, sequela of remote MCA territory infarction. 3. Mild chronic microangiopathic changes and mild age-related global parenchymal volume loss. Important findings were discussed with nurse Martha Mccarty on 10/03/2017 at 2:45 p.m.
--- NOTE | 2017-10-03 16:40 | CP.PCM.PN ---
Subjective - Date & Time of Evaluation Date of Evaluation: 10/03/17 Time of Evaluation: 16:00 - Subjective Subjective: NURSING SCHEDULER NOTES Objective - Vital Signs/Intake and Output Vital Signs (last 24 hours): Temp Pulse Resp BP Pulse Ox 97.7 F 80 18 123/69 96 10/03/17 08:14 10/03/17 08:14 10/03/17 08:14 10/03/17 11:39 10/03/17 08:14 Intake and Output: 10/03/17 10/03/17 06:59 18:59 Intake Total 460 Balance 460 - Medications Medications: Current Medications Acetaminophen (Tylenol 325mg Tab) 650 mg PO Q6 PRN PRN Reason: Fever >100.4 F Acetaminophen/Hydrocodone Bitart (Vicodin 5 Mg-300 Mg) 1 tab PO Q4H PRN PRN Reason: Pain, moderate (4-7) Stop: 10/07/17 15:38 Last Admin: 10/01/17 17:54 Dose: 1 tab Aspirin (Aspirin Chewable) 81 mg PO DAILY [facility] Last Admin: 10/03/17 11:39 Dose: 81 mg Docusate Sodium (Colace) 100 mg PO BID [facility] Last Admin: 10/03/17 11:39 Dose: 100 mg Furosemide (Lasix) 40 mg PO DAILY [facility] Last Admin: 10/03/17 11:39 Dose: 40 mg Insulin Human Regular (Novolin R) 0 unit SC ACHS [facility] PRN Reason: Protocol Last Admin: 10/03/17 12:08 Dose: Not Given Losartan Potassium (Cozaar) 100 mg PO DAILY [facility] Last Admin: 10/03/17 11:38 Dose: 100 mg Metoprolol Succinate (Toprol Xl) 100 mg PO DAILY [facility] Last Admin: 10/03/17 11:48 Dose: 100 mg Ondansetron HCl (Zofran Inj) 4 mg IVP Q6 PRN PRN Reason: Nausea/Vomiting Pantoprazole Sodium (Protonix Ec Tab) 40 mg PO DAILY [facility] Last Admin: 10/03/17 11:39 Dose: 40 mg Rivaroxaban (Xarelto) 20 mg PO DAILY [facility] Last Admin: 10/03/17 11:41 Dose: 20 mg Rosuvastatin Calcium (Crestor) 5 mg PO HS [facility] Last Admin: 10/02/17 21:31 Dose: 5 mg - Labs Labs: 10/01/17 06:47 10/01/17 06:47 PT 11.4 SECONDS (9.7-12.2) 09/30/17 11:33 INR 1.0 09/30/17 11:33 APTT 31 SECONDS (21-34) 09/30/17 11:33 Assessment and Plan - Assessment and Plan (Free Text) Assessment: 72 y r old female admitted with TIA MRI - brain -small acute infarction in the left superior cerebellar hemisphere head MRA- negative D/W Dr. Garay , cleared for discharge home today and f/u with Dr. Garay office in 1 week D/W patient , RX e prescribed to patient pharmacy
--- NOTE | 2017-10-03 16:41 | PCM.HF ---
Heart Failure Core Measure - Heart Failure Ejection Fraction: Less Than 40 % DINA Inhibitor Prescribed: No Contraindication/Reason for not providing: on arb Beta-Nils Prescribed: Metoprolol Succinate Angiotensin II Receptor Nils Prescribed: Yes AnticoagulationTherapy for Atrial Fibrillation/Atrialflutter: Yes Aldosterone Antagonist Prescribed: No Contraindication/Reason for not providing: risk for hyperkalemia Hydralazine Nitrate Prescribed: No Contraindication/Reason for not providing: bp runnig low Implantable Cardioverter Defibrillator Therapy: No Contraindication/Reason for not providing: ICD out pt as per Dr. Garay Cardiac Resynchronization Therapy Prescribed: No Contraindication/Reason for not providing: ICD as outpt as per Dr. Garay - Follow up Will be discharged to: Home Follow Up Date (must be within 7 days from discharge): 10/09/17 Follow Up Time: 09:00
[2017-10-03 23:07] VITALS: BP 95/60; PULSE 78; RESP 20
[2017-10-04 08:28] VITALS: O2SAT 98
== END 2017-10-03 18:19 | disposition home or self-care (01) | DRG 69 ==
LOC: C.ER 10:17 → C.9E 14:12 → C.6T 15:09
PROVIDERS: ADMIT Internal Medicine Cardiovascular Disease; ATTEND Internal Medicine Cardiovascular Disease
DX: G45.9 Transient cerebral ischemic attack, unspecified (principal); I42.0 Dilated cardiomyopathy; I50.9 Heart failure, unspecified; I11.0 Hypertensive heart disease with heart failure; E11.9 Type 2 diabetes mellitus without complications; M19.041 Primary osteoarthritis, right hand; Z79.4 Long term (current) use of insulin

== ENCOUNTER 2017-11-02 20:42 | Emergency (ER) | payer MEDICARE ==
[2017-11-02 20:42] VITALS: BMI 36.6
[2017-11-02 20:53] VITALS: TEMP 97.8
[2017-11-02 22:04] VITALS: O2SAT 99
--- NOTE | 2017-11-02 22:08 | C.PDOC ---
History Of Present Illness Patient presents to the ER with a complaint of chest discomfort while watching TV earlier today lasting a few seconds. It was mild discomfort radiating to right arm. Pt got"scared" and called 911 Patient reports taking a 324mg aspirin [employer]. Denies nausea or vomiting. Has not had any more chest discomfort since then Time Seen by Provider: 11/02/17 22:07 Chief Complaint (Nursing): Chest Pain History Per: Patient History/Exam Limitations: no limitations Onset/Duration Of Symptoms: Hrs Current Symptoms Are (Timing): Still Present Severity: Moderate Pain Scale Rating Of: 4 Quality: "Pain" Associated Symptoms: denies: Nausea, Dyspnea, Diaphoresis, Syncope Modifying Factors: None Exacerbating Factors: None Alleviating Factors: None Recent travel outside of the [place]: No Additional History Per: Family Past Medical History Reviewed: Historical Data, Nursing Documentation, Vital Signs Vital Signs: Last Vital Signs Temp 97.8 F 11/02/17 20:49 Pulse 78 11/02/17 22:56 Resp 18 11/02/17 22:56 BP 130/71 11/02/17 22:56 Pulse Ox 99 11/02/17 23:11 - Medical History PMH: Arthritis (HANDS; RIGHT ARM), CHF, Colonic Polyps, Diverticulitis, HTN, Pancreatitis Surgical History: Endoscopy - [facility] Procedures DRESSING TECHNIQUES TREATMENT USING ASSIST EQUIPMENT (08/09/17) GAIT TRAINING/FUNCTIONAL AMBULATION TREATMENT (08/09/17) HOME MANAGEMENT TREATMENT USING ASSIST EQUIPMENT (08/09/17) RELEASE SMALL INTESTINE, OPEN APPROACH (08/02/17) RESECTION OF SMALL INTESTINE, OPEN APPROACH (08/02/17) THERAPEUTIC EXERCISE TREATMENT OF MUSCULOSK LOW BACK/LE (08/09/17) Family History: States: No Known Family Hx - Social History Hx Alcohol Use: No Hx Substance Use: No - Immunization History Hx Tetanus Toxoid Vaccination: No Hx Influenza Vaccination: No Hx Pneumococcal Vaccination: Yes Review Of Systems Constitutional: Negative for: Fever, Chills Cardiovascular: Positive for: Chest Pain Respiratory: Negative for: Shortness of Breath Gastrointestinal: Negative for: Nausea, Vomiting Physical Exam - Physical Exam Appears: Non-toxic Skin: Warm, Dry Head: Normacephalic Eye(s): bilateral: Normal Inspection Oral Mucosa: Moist Neck: Supple Chest: Symmetrical, No Tenderness Cardiovascular: Rhythm Regular Respiratory: No Rales, No Rhonchi, No Wheezing Gastrointestinal/Abdominal: Soft, No Tenderness Extremity: Normal ROM Extremity: Bilateral: Atraumatic Pulses: Left Dorsalis Pedis: Normal, Right Dorsalis Pedis: Normal Neurological/Psych: Oriented x3, Normal Speech, Normal Cognition Gait: Steady ED Course And Treatment - Laboratory Results Result Diagrams: 11/02/17 22:17 11/02/17 22:17 ECG: Interpreted By Me, Viewed By Me ECG Rhythm: Sinus Rhythm (77), L BBB, Nonspecific Changes (unchanged from ) O2 Sat by Pulse Oximetry: 99 Pulse Ox Interpretation: Normal - Radiology CXR: Interpreted by Me, Viewed By Me Progress Note: EKG, blood work, and CXR ordered. Pt feels fine and wants to go home. Daughter at bedside. Understands the risks as I've explained to the patient , and she wants to go home. Encouraged to return if symptoms recur Reevaluation Time: 23:21 Reassessment Condition: Improved Medical Decision Making Medical Decision Making: Patient is resting comfortably, is no longer having chest pain or shortness of breath. Patient has no risk factors for pulmonary emboli or DVT. Clinical presentation is not suggestive of aortic dissection. Patient is being discharged home and is being advised to follow up with physician/clinic in 1-2 days.Encouraged to return if symptoms recur Disposition Counseled Patient/Family Regarding: Studies Performed, Diagnosis, Need For Followup - Disposition Referrals: Atfi Garay MD [Staff Provider] - Disposition: HOME/ ROUTINE Disposition Time: 22:08 Condition: FAIR Additional Instructions: Please return if symptoms recur Instructions: Noncardiac Chest Pain (ED) Forms: [employer] (Jamaican) - Clinical Impression Clinical Impression: Chest pain - Scribe Statement The provider has reviewed the documentation as recorded by the Scribe Sahil Ponce All medical record entries made by the Scribe were at my direction and personally dictated by me. I have reviewed the chart and agree that the record accurately reflects my personal performance of the history, physical exam, medical decision making, and the department course for this patient. I have also personally directed, reviewed, and agree with the discharge instructions and disposition.
[2017-11-02 22:24] LABS: BASO % 0.4 % (0.0-2.0); EOS % 0.7 % (0.0-4.0); HEMOGLOBIN 12.6 g/dL (11.0-16.0); LYMPH % 42.4 % (20.0-40.0); MEAN CELL VOLUME 89.5 fL (81.0-99.0); MEAN CORPUSCULAR HEMOGLOBIN 29.8 pg (27.0-31.0); MEAN CORPUSCULAR HGB CONC 33.3 g/dL (33.0-37.0); MEAN PLATELET VOLUME 8.9 fL (7.2-11.7); MONO # 0.4 K/uL (0.0-0.8); NEUT # 3.6 K/uL (1.8-7.0); NEUT % 50.5 % (50.0-75.0); RBC 4.22 Mil/uL (3.80-5.20); RED CELL DISTRIBUTION WIDTH 15.2 % (11.5-14.5)
[2017-11-02 22:32] LABS: INR 1.6; PROTHROMBIN TIME 18.6 SECONDS (9.7-12.2)
[2017-11-02 22:36] LABS: ALB/GLOB RATIO 1.2 (1.0-2.1); CALCIUM 9.1 mg/dl (8.6-10.4)
[2017-11-02 22:48] LABS: TROPONIN I 0.023 ng/mL (0.00-0.120)
[2017-11-02 22:57] VITALS: BP 130/71; PULSE 78; RESP 18
--- NOTE | 2017-11-03 11:18 | RAD ---
PROCEDURE: CHEST RADIOGRAPH, 1 VIEW HISTORY: chest pain COMPARISON: 08/07/2017 FINDINGS: LUNGS: Technically limited. No infiltrate. PLEURA: No pneumothorax or pleural fluid seen. CARDIOVASCULAR: Decrease congestive change. Normal heart size. OSSEOUS STRUCTURES: No significant abnormalities. VISUALIZED UPPER ABDOMEN: Normal. OTHER FINDINGS: None. IMPRESSION: No active disease.
== END 2017-11-02 23:34 | disposition home or self-care (01) ==
LOC: C.ER 20:42
DX: R07.9 Chest pain, unspecified (principal)

== ENCOUNTER 2017-11-25 11:14 | Emergency (ER) | payer MEDICARE ==
[2017-11-25 11:15] VITALS: BMI 35.2
[2017-11-25 11:19] VITALS: TEMP 98.3
--- NOTE | 2017-11-25 11:36 | C.PDOC ---
History Of Present Illness Patient is a 72 year old female with a past medical history of hypertension and TIA last month, who presents complaining of right-sided chest pain, onset this morning. States she was in the kitchen when she experienced 2 momentary episodes of sharp chest pain. Currently she denies having any pain. Of note, patient was admitted here for TIA last month. She denies any abdominal pain, nausea, vomiting, dizziness, fever, cough, shortness of breath, headache, or neck pain. Time Seen by Provider: 11/25/17 11:26 Chief Complaint (Nursing): Chest Pain History Per: Patient History/Exam Limitations: no limitations Onset/Duration Of Symptoms: Intermittent Episodes (x2) Current Symptoms Are (Timing): Gone Quality: Sharp Past Medical History Reviewed: Historical Data, Nursing Documentation, Vital Signs Vital Signs: Last Vital Signs Temp 98.3 F 11/25/17 11:15 Pulse 63 11/25/17 12:42 Resp 20 11/25/17 12:42 BP 124/68 11/25/17 12:42 Pulse Ox 96 11/25/17 14:49 - Medical History PMH: Arthritis (HANDS; RIGHT ARM), CHF, Colonic Polyps, Diverticulitis, HTN, Pancreatitis, TIA Denies: Atrial Fibrillation, Cardia Arrhythmia, Crohn's Disease, Fractures, Gastritis, Gall Bladder Disease, HIV, Hypercholesterolemia, Mitral Valve Prolapse, Osteoporosis, Peripheral Edema, Chronic Kidney Disease, Rheumatoid Arthritis Surgical History: Endoscopy Denies: Appendectomy, CABG, Carotid Endarterectomy, Cholecystectomy, Coronary Stent, Pacemaker, Tonsillectomy - [facility] Procedures DRESSING TECHNIQUES TREATMENT USING ASSIST EQUIPMENT (08/09/17) GAIT TRAINING/FUNCTIONAL AMBULATION TREATMENT (08/09/17) HOME MANAGEMENT TREATMENT USING ASSIST EQUIPMENT (08/09/17) RELEASE SMALL INTESTINE, OPEN APPROACH (08/02/17) RESECTION OF SMALL INTESTINE, OPEN APPROACH (08/02/17) THERAPEUTIC EXERCISE TREATMENT OF MUSCULOSK LOW BACK/LE (08/09/17) Family History: States: Unknown Family Hx - Social History Hx Alcohol Use: No Hx Substance Use: No - Immunization History Hx Tetanus Toxoid Vaccination: No Hx Influenza Vaccination: No Hx Pneumococcal Vaccination: Yes Review Of Systems Except As Marked, All Systems Reviewed And Found Negative. Constitutional: Negative for: Fever Cardiovascular: Positive for: Chest Pain (right-sided, non radiating) Respiratory: Negative for: Cough, Shortness of Breath Gastrointestinal: Negative for: Nausea, Vomiting, Abdominal Pain Musculoskeletal: Negative for: Neck Pain Neurological: Negative for: Headache, Dizziness Physical Exam - Physical Exam Appears: Non-toxic, No Acute Distress Skin: Normal Color, Warm, Dry Head: Atraumatic, Normacephalic Eye(s): bilateral: Normal Inspection, PERRL, EOMI Nose: Normal Oral Mucosa: Moist Neck: Normal ROM, Supple Chest: Symmetrical Cardiovascular: Rhythm Regular, No Murmur Respiratory: Normal Breath Sounds, No Accessory Muscle Use, No Wheezing Gastrointestinal/Abdominal: Soft, No Tenderness, Other (obese) Extremity: Bilateral: Atraumatic, No Pedal Edema, Normal ROM Neurological/Psych: Oriented x3, Normal Speech ED Course And Treatment - Laboratory Results Result Diagrams: 11/25/17 12:47 11/25/17 12:47 ECG Rhythm: L BBB (at 65 bpm) ECG Interpretation: No Changes From Prior O2 Sat by Pulse Oximetry: 96 (RA) Pulse Ox Interpretation: Normal Medical Decision Making Medical Decision Making: Time: 11:36 Initial Plan: * EKG * CMP * Pro BNP * Troponin I * CBC * Reassessment Paged patient's PMD Dr. Garay, pending call back. Feeling better, no pain, troponin wnl Disposition Counseled Patient/Family Regarding: Studies Performed, Need For Followup - Disposition Referrals: Atif Garay MD [Staff Provider] - Disposition: HOME/ ROUTINE Disposition Time: 14:46 Condition: STABLE Additional Instructions: Follow up with your doctor in the next few days. Return to the Emergency Department if symptoms persist. Instructions: Chest Wall Pain (ED) Forms: [facility] (Turkish), General Discharge Instructions - POA Present On Arrival: None - Clinical Impression Clinical Impression: Chest discomfort - Scribe Statement The provider has reviewed the documentation as recorded by the Zach Armijo Provider Attestation: All medical record entries made by the Saiibdiego were at my direction and personally dictated by me. I have reviewed the chart and agree that the record accurately reflects my personal performance of the history, physical exam, medical decision making, and the department course for this patient. I have also personally directed, reviewed, and agree with the discharge instructions and disposition.
[2017-11-25 12:56] LABS: BASO % 0.4 % (0.0-2.0); EOS % 0.5 % (0.0-4.0); HEMOGLOBIN 12.5 g/dL (11.0-16.0); LYMPH # 2.3 K/uL (1.0-4.3); LYMPH % 40.9 % (20.0-40.0); MEAN CORPUSCULAR HEMOGLOBIN 29.7 pg (27.0-31.0); MEAN PLATELET VOLUME 9.1 fL (7.2-11.7); MONO # 0.4 K/uL (0.0-0.8); MONO % 6.7 % (0.0-10.0); NEUT # 2.9 K/uL (1.8-7.0); NEUT % 51.5 % (50.0-75.0); NRBC % 0.1 % (0.0-2.0); RBC 4.22 Mil/uL (3.80-5.20); WHITE BLOOD COUNT 5.5 K/uL (4.8-10.8)
[2017-11-25 13:18] VITALS: PULSE 63
[2017-11-25 13:24] LABS: TROPONIN I 0.018 ng/mL (0.00-0.120)
[2017-11-25 13:26] LABS: ALB/GLOB RATIO 1.3 (1.0-2.1); ALBUMIN 3.8 g/dL (3.5-5.0); CALCIUM 9.4 mg/dl (8.6-10.4)
[2017-11-25 14:54] VITALS: BP 124/59; RESP 14; O2SAT 99
--- NOTE | 2017-11-25 15:03 | RAD ---
HISTORY: chest pain COMPARISON: Chest x-ray performed 11/02/17 TECHNIQUE: Chest, one view. FINDINGS: LUNGS: Linear atelectasis, left mid lung zone. Please note that chest x-ray has limited sensitivity for the detection of pulmonary masses. PLEURA: No significant pleural effusion identified. No definite pneumothorax . CARDIOVASCULAR: Cardiomegaly. OSSEOUS STRUCTURES: Degenerative changes. VISUALIZED UPPER ABDOMEN: Elevation of the right hemidiaphragm. OTHER FINDINGS: None. IMPRESSION: Linear atelectasis, left mid lung zone. Cardiomegaly.
--- NOTE | 2017-11-26 21:13 | CARD ---
APPROVED REPORT EKG Measurement Heart [id number] <Conclusion> Normal sinus rhythm Left bundle branch block Abnormal ECG
== END 2017-11-25 15:29 | disposition home or self-care (01) ==
LOC: C.ER 11:14
DX: R07.89 Other chest pain (principal); I50.9 Heart failure, unspecified; I10 Essential (primary) hypertension; Z86.73 Personal history of transient ischemic attack (TIA), and cerebral infarction without residual deficits

== ENCOUNTER 2018-06-03 04:36 | Emergency (ER) | payer MEDICARE ==
[2018-06-03 04:37] VITALS: BMI 36.8
[2018-06-03 05:26] LABS: BASO % 0.4 % (0.0-2.0); EOS # 0.1 K/uL (0.0-0.7); EOS % 0.9 % (0.0-4.0); HEMOGLOBIN 12.6 g/dL (11.0-16.0); LYMPH # 2.6 K/uL (1.0-4.3); LYMPH % 40.4 % (20.0-40.0); MEAN CELL VOLUME 89.5 fL (81.0-99.0); MEAN CORPUSCULAR HEMOGLOBIN 29.2 pg (27.0-31.0); MEAN CORPUSCULAR HGB CONC 32.6 g/dL (33.0-37.0); MEAN PLATELET VOLUME 8.9 fL (7.2-11.7); MONO # 0.4 K/uL (0.0-0.8); NEUT # 3.4 K/uL (1.8-7.0); NEUT % 52.3 % (50.0-75.0); NRBC % 0.1 % (0.0-2.0); RBC 4.33 Mil/uL (3.80-5.20); RED CELL DISTRIBUTION WIDTH 15.2 % (11.5-14.5); WHITE BLOOD COUNT 6.5 K/uL (4.8-10.8)
--- NOTE | 2018-06-03 05:41 | C.PDOC ---
History Of Present Illness 73 y/o patient presents to the ED complaining of constant discomfort in the abdomen for 3-4 hours. The patient has a hx of BM resection secondary to diverticulitis- Aug 2017, TIA in September and defibrillator earlier this year. She denies any nausea, vomiting or diarrhea. Time Seen by Provider: 06/03/18 04:53 Chief Complaint (Nursing): Weakness/Neurological Deficit History Per: Patient History/Exam Limitations: no limitations Onset/Duration Of Symptoms: Hrs Current Symptoms Are (Timing): Still Present Recent travel outside of the [place]: No Past Medical History Reviewed: Historical Data, Nursing Documentation, Vital Signs Vital Signs: Last Vital Signs Temp 98.5 F 06/03/18 04:41 Pulse 77 06/03/18 04:41 Resp 14 06/03/18 06:12 BP 115/50 L 06/03/18 06:12 Pulse Ox 100 06/03/18 06:12 - Medical History PMH: Arthritis (HANDS; RIGHT ARM), CHF, Colonic Polyps, Diverticulitis, HTN, Pancreatitis, TIA Denies: Atrial Fibrillation, Cardia Arrhythmia, Crohn's Disease, Fractures, Gastritis, Gall Bladder Disease, HIV, Hypercholesterolemia, Mitral Valve Prolapse, Osteoporosis, Peripheral Edema, Chronic Kidney Disease, Rheumatoid Arthritis Surgical History: Endoscopy, Pacemaker Denies: Appendectomy, CABG, Carotid Endarterectomy, Cholecystectomy, Coronary Stent, Tonsillectomy - [facility] Procedures DRESSING TECHNIQUES TREATMENT USING ASSIST EQUIPMENT (08/09/17) GAIT TRAINING/FUNCTIONAL AMBULATION TREATMENT (08/09/17) HOME MANAGEMENT TREATMENT USING ASSIST EQUIPMENT (08/09/17) RELEASE SMALL INTESTINE, OPEN APPROACH (08/02/17) RESECTION OF SMALL INTESTINE, OPEN APPROACH (08/02/17) THERAPEUTIC EXERCISE TREATMENT OF MUSCULOSK LOW BACK/LE (08/09/17) Family History: States: Unknown Family Hx - Social History Hx Alcohol Use: No Hx Substance Use: No - Immunization History Hx Tetanus Toxoid Vaccination: No Hx Influenza Vaccination: No Hx Pneumococcal Vaccination: Yes Review Of Systems Except As Marked, All Systems Reviewed And Found Negative. Constitutional: Negative for: Fever, Chills Eyes: Negative for: Pain, Vision Change ENT: Negative for: Ear Pain, Ear Discharge Cardiovascular: Negative for: Chest Pain, Palpitations Respiratory: Negative for: Cough, Shortness of Breath, SOB with Excertion, Pleuritic Pain Gastrointestinal: Positive for: Abdominal Pain. Negative for: Nausea, Vomiting , Diarrhea, Constipation Genitourinary: Negative for: Dysuria, Frequency, Incontinence, Hematuria, Vaginal Discharge Neurological: Negative for: Weakness, Numbness Physical Exam - Physical Exam Appears: Well, Non-toxic, No Acute Distress Skin: Normal Color, Warm, Dry Head: Atraumatic, Normacephalic Eye(s): bilateral: Normal Inspection, PERRL, EOMI Ear(s): Bilateral: Normal Nose: Normal Oral Mucosa: Moist Teeth: Normal Dentition Gingiva: Normal Appearing Chest: Symmetrical Cardiovascular: Rhythm Regular, No Murmur, Other (AICB in left chest wall) Respiratory: Normal Breath Sounds, No Rales, No Rhonchi, No Wheezing Gastrointestinal/Abdominal: Bowel Sounds, Tenderness (in epigatric region), No Distention Extremity: Bilateral: Atraumatic, Normal Color And Temperature, Normal ROM Neurological/Psych: Oriented x3, Normal Speech ED Course And Treatment - Laboratory Results Result Diagrams: 06/03/18 05:22 06/03/18 05:22 Interpretation Of ECG: NSR. Left bundle branch block. No ischemic block. vent rate 78 bpm. NJ- 190. QRS- 198 ms. QT-472. QTc-538 O2 Sat by Pulse Oximetry: 97 (RA) Pulse Ox Interpretation: Normal Medical Decision Making Medical Decision Making: Impression: 73 y/o female with constant discomfort in epigastric region Plan: --Abd/Pelvis CT --B-Type Natriuretic --CMP --Lact Acid --Lipase --Troponin I --CBC --PTT --Chest X-Ray --Obstructive series X-Ray --Zofran Inj 4 mg IV --fentaNYL 50 mcg IV --Protonix Inj 40 mg --UA case turned over t oDr. Byrnes pending ct a/p and final dispo Disposition Counseled Patient/Family Regarding: Diagnosis - Disposition Disposition: HOSPITALIZED Disposition Time: 06:18 Condition: FAIR Forms: [employer] (Guamanian) - Clinical Impression Clinical Impression: Small bowel obstruction, Abdominal pain
[2018-06-03 06:08] LABS: CALCIUM 9.2 mg/dl (8.6-10.4); GFR NON-AFRICAN AMERICAN 54; LIPASE 81 U/L (23-300)
[2018-06-03 06:10] LABS: ALB/GLOB RATIO 1.3 (1.0-2.1); ALBUMIN 4.2 g/dL (3.5-5.0); ALT/SGPT 31 U/L (9-52); AST/SGOT 36 U/L (14-36); BLOOD UREA NITROGEN 19 mg/dL (7-17)
[2018-06-03 06:19] LABS: B-TYPE NATRIURETIC PEPTIDE 5150 pg/mL (0-900)
[2018-06-03] MEDS ORDERED: Iodixanol 320 MG/ML 100 ML BOTTLE IV ONE (06:38)
[2018-06-03 06:51] LABS: SQUAMOUS EPITHIAL 1 /hpf (0-5); URINE BACTERIA RARE (<OCC); URINE BILIRUBIN NEGATIVE (NEGATIVE); URINE BLOOD NEGATIVE (NEGATIVE); URINE CLARITY Clear (Clear); URINE COLOR Straw (YELLOW); URINE GLUCOSE (UA) NORMAL (Normal); URINE LEUKOCYTE ESTERASE NEG Leu/uL (Negative); URINE PROTEIN NEGATIVE (NEGATIVE); URINE UROBILINOGEN NORMAL mg/dL (0.2-1.0)
--- NOTE | 2018-06-03 09:41 | RAD ---
Date of service: 06/03/2018 HISTORY: abd pain COMPARISON: 11/25/2017 TECHNIQUE: Chest PA and lateral FINDINGS: LUNGS: Right lower lobe opacity. Possible pneumonia versus atypical pulmonary edema. PLEURA: No significant pleural effusion identified. No pneumothorax apparent. CARDIOVASCULAR: Mild cardiomegaly. Possibly artifact due to portable technique. AICD noted common not present on prior examination. OSSEOUS STRUCTURES: No significant abnormalities. VISUALIZED UPPER ABDOMEN: Normal. OTHER FINDINGS: None. IMPRESSION: Right lower lobe opacity. Pneumonia versus atypical pulmonary edema. Follow-up advised.
[2018-06-03 10:46] VITALS: BP 137/85; PULSE 67; RESP 18; TEMP 98; O2SAT 95
--- NOTE | 2018-06-03 11:24 | CT ---
Date of service: 06/03/2018 PROCEDURE: CT Abdomen and Pelvis with contrast HISTORY: abd pain COMPARISON: Obstructive series performed 06/03/18, a CT of the abdomen and pelvis with IV contrast performed 08/02/17 TECHNIQUE: Contrast dose: 100 mL Visipaque IV Radiation dose: Total exam DLP = 1026.43 mGy-cm. This CT exam was performed using one or more of the following dose reduction techniques: Automated exposure control, adjustment of the mA and/or kV according to patient size, and/or use of iterative reconstruction technique. FINDINGS: LOWER THORAX: Left basilar atelectasis. No visible pleural effusion or pneumothorax. Partially imaged cardiomegaly and pacer leads. LIVER: Approximately 7 mm left lower lobe low-attenuation lesion ; statistically likely cysts. GALLBLADDER AND BILE DUCTS: Unremarkable. PANCREAS: Unremarkable. SPLEEN: Unremarkable. ADRENALS: Unremarkable. KIDNEYS AND URETERS: The kidneys enhance symmetrically. Probable right renal scarring. Diminutive/atrophic right kidney. 15 mm low-density lesion within the right upper pole, possibly cysts. No evidence of hydronephrosis. No hydronephrosis or obstructing calculus identified. VASCULATURE: No aortic aneurysm. BOWEL: Stomach is nondistended. Lack of oral contrast limits evaluation for bowel pathology. Bowel loops appear within normal limits of caliber without evidence of obstruction. Partial small bowel resection. Extensive diverticulosis without CT evidence of acute diverticulitis. APPENDIX: The appendix is not clearly identified. No secondary signs of acute appendicitis. PERITONEUM: Unremarkable. LYMPH NODES: Scattered nonspecific inguinal lymph nodes. BLADDER: Unremarkable. REPRODUCTIVE: The uterus is not identified presumably due to hysterectomy. BONES: Degenerative changes. OTHER FINDINGS: Soft tissue prominence in the region of perineum/cervix, possibly volume averaging. Correlate. IMPRESSION: Prior small bowel resection. No evidence of obstruction. Extensive diverticulosis without CT evidence of acute diverticulitis. Soft tissue prominence in the region of the perineum/cervix, possibly volume averaging. Correlate clinically. Additional findings as above. Preliminary impression was provided by [employer].
--- NOTE | 2018-06-03 14:35 | RAD ---
Date of service: 06/03/2018 PROCEDURE: Radiographs of the chest and abdomen (obstructive series) HISTORY: abd pain COMPARISON: No prior. TECHNIQUE: AP radiograph of the chest, with upright and supine radiographs of the abdomen. FINDINGS: CHEST: See report of chest radiograph at the same time. ABDOMEN AND PELVIS: Bowel: Several mildly dilated small bowel loops common nonspecific. Ileus versus mechanical obstruction. Followup advised. No masses or abnormal calcifications. No hepatic or splenic enlargement. Free air: None. Bones: Unremarkable. Other findings: None. IMPRESSION: Several mildly dilated small bowel loops. Rule out early mechanical bowel obstruction. Follow-up advised.
--- NOTE | 2018-06-04 17:40 | CARD ---
APPROVED REPORT Date of service: 06/03/2018 EKG Measurement Heart [id number] <Conclusion> Normal sinus rhythm Left bundle branch block Abnormal ECG
== END 2018-06-03 11:01 | disposition home or self-care (01) ==
LOC: C.ER 04:36
DX: K56.609 Unspecified intestinal obstruction, unspecified as to partial versus complete obstruction (principal); R10.13 Epigastric pain; J18.9 Pneumonia, unspecified organism
CPT/HCPCS: 71046; 74022; 74177; 80053; 81001; 83605; 83690; 83880; 84484; 85025; 85730; 93005; 96374; 96375; 99285; C9113; J1940; J2405; Q9967